=== PATIENT | female | born 1950 | race Caucasian/White ===

== ENCOUNTER → 2020-08-15 08:30 | Outpatient (CLI) | payer MEDICARE, SELFPAY ==
--- NOTE | ~2020-08-15 | MR_ITS ---
EXAMINATION: MR lumbar spine wo con EXAM DATE: 08/15/2020 09:03 INDICATION: Lumbar radiculopathy lumbar radiculopathy. TECHNIQUE: Multi-sequential, multiplanar MR images of the lumbar spine were obtained without contrast . Sagittal T1, T2, T2 fat saturation images. Axial T2 weighted images. There is no prior study for comparison. FINDINGS: Moderate lumbar levoscoliosis. There is severe disc disease L2-3 and L3-4 with mild loss of the vertebral body heights L2-L4. Small Tarlov cyst posterior to the S2 segment. The conus medullari s terminates at the L1 level and has normal signal intensity and morphology. Mildly diffusely hetero geneous bone marrow without focal suspicious signal abnormality. There is 3 mm anterolisthesis L4 on L5 with moderate disc disease. Level by level evaluation: T12-L1: Disc does not extend beyond the endplate margin. Facet arthropathy: Mild. Neural foraminal stenosis: No stenosis. Central canal stenosis: No stenosis. L1-L2: There is a mild diffuse disc bulge. Facet arthropathy: Mild to moderate. Neural foraminal stenosis: Mild bilateral. Central canal stenosis: Mild. L2-L3: There is a mild to moderate diffuse disc bulge. Facet arthropathy: Moderate. Neural foraminal stenosis: Mild to moderate right, mild left. Central canal stenosis: Mild to moderate. L3-L4: There is a mild to moderate diffuse disc bulge. Facet arthropathy: Moderate. Neural foraminal stenosis: Moderate right, mild left. Central canal stenosis: Mild to moderate. L4-L5: There is a mild to moderate diffuse disc bulge. Facet arthropathy: Mild to moderate. Neural foraminal stenosis: Moderate left, mild right. Central canal stenosis: Mild to moderate. L5-S1: There is a mild diffuse disc bulge. Facet arthropathy: Mild to moderate. Neural foraminal stenosis: Mild left. Central canal stenosis: No stenosis. IMPRESSION: 1. Moderate lumbar levoscoliosis. 2. Advanced mid lumbar disc disease. Reviewed, dictated and finalized at location B. [employer]
--- NOTE | ~2020-08-15 | XR_ITS ---
EXAMINATION:XR cervical spine 4-5V DATE: 08/15/2020 09:18 INDICATION: Neck pain TECHNIQUE: AP, lateral, lateral swimmers and odontoid views of the cervical spine are provided. COMPARISON: None FINDINGS: Alignment is normal. The odontoid is intact. No fracture is identified. There is severe los s of intervertebral disc space height from C3-4 through C6-7. There is no laxity with flexion or exte nsion. Prevertebral soft tissues are normal. There is severe multilevel facet and uncovertebral joint osteoarthritis throughout the cervical spine. IMPRESSION: 1. Severe cervical spondylosis without acute findings. Reviewed, dictated and finalized at location A. IALTY THERAPIST
== END ==
PROVIDERS: Visit Provider Nurse Practitioner Family
DX: M47.25 Other spondylosis with radiculopathy, thoracolumbar region (principal); M47.27 Other spondylosis with radiculopathy, lumbosacral region; M48.07 Spinal stenosis, lumbosacral region; M41.9 Scoliosis, unspecified
CPT/HCPCS: 72050; 72148

== ENCOUNTER → 2021-09-05 10:10 | Outpatient (CLI) | payer MEDICARE, SELFPAY ==
--- NOTE | ~2021-09-05 | MM_ITS ---
EXAMINATION: MM screening [place] BI w arun HISTORY: Screening TECHNIQUE: Craniocaudal and mediolateral oblique 3-D tomosynthesis images were obtained and synthetic 2-D images were generated. CAD analysis was submitted and interpreted. COMPARISON: Comparison to multiple prior studies sequentially, with oldest reviewed study dated 03/2013. BREAST PARENCHYMAL COMPOSITION: There are scattered areas of fibroglandular density. FINDINGS: There is no evidence of suspicious mass, calcification, or architectural distortion to sugg est malignancy in either breast. There has been no suspicious interval change. IMPRESSION: 1. No mammographic evidence of malignancy. 2. Recommend routine screening mammography in one year. BI-RADS Category 1: Negative Reviewed, dictated and finalized at location A. E SHOW MANAGER
--- NOTE | ~2021-09-05 | DEXA_ITS ---
Bone Density Report Name: MONICA SHERMAN I Age: 71 Sex: Female Ethnicity: White Date of : 1950 Indication: osteopenia; height loss; hysterectomy; rheumatoid arthritis; Referring Provider: Jhony Holder Study: Bone densitometry was performed. Exam Date: September 05, 2021 Accession number: [id number] Bone Density: Region BMD T-score Z-score Classification AP Spine (L1-L4) 1.033 -0.1 2.2 Normal Femoral Neck (Left) 0.509 -3.1 -1.1 Osteoporosis Total Hip (Left) 0.602 -2.8 -1.1 Osteoporosis Femoral Neck (Right) 0.553 -2.7 -0.7 Osteoporosis Total Hip (Right) 0.648 -2.4 -0.7 Osteopenia Total Hip Mean 0.625 -2.6 -0.9 Osteoporosis World Health Organization criteria for BMD impression classify patients as: Normal (T-score at or above -1.0), Osteopenia (T-score between -1.0 and -2.5), or Osteoporosis (T-score at or below -2.5). 10-year Fracture Risk: FRAX not reported because: Some T-score for Spine Total or Hip Total or Femoral Neck at or below -2.5 Previous Exams: Region Exam Age BMD T-score BMD Change BMD Change Date g/cm2 vs Baseline vs Previous AP Spine(L1-L4) 09/05/2021 71 1.033 -0.1 0.057* -0.014 08/12/2012 62 1.047 0.0 0.071* 0.011 06/27/2009 59 1.036 -0.1 0.060* 0.060* 06/18/2005 55 0.976 -0.6 Total Hip(Left) 09/05/2021 71 0.602 -2.8 -0.200* -0.108* 08/12/2012 62 0.710 -1.9 -0.092* -0.037* 06/27/2009 59 0.747 -1.6 -0.055* -0.055* 06/18/2005 55 0.802 -1.1 Total Hip(Right) 09/05/2021 71 0.648 -2.4 -0.191* -0.099* 08/12/2012 62 0.747 -1.6 -0.092* -0.030* 06/27/2009 59 0.777 -1.4 -0.062* -0.062* 06/18/2005 55 0.839 -0.8 *Denotes significance at 95% confidence level, LSC for AP Spine = 0.022 g/cm2, LSC for Total Hip = 0.027 g/cm2 Clinical Information Provided by Patient: Has rheumatoid arthritis Has used the following medications: Vitamin D, Calcium Has the following medical conditions: Hysterectomy Patient maximum height was 64 Menopause Age: 28 No regular weight bearing exercise Does not regularly consume dairy products Drinks caffeinated beverages Onset of menses at age 9 Number of children 1 Impression: The patient has osteoporosis, based on the Left Femoral Neck T-score. The BMD for the Total Hip(Left) decreased, changing by -0.108
== END ==
PROVIDERS: PCP Family Medicine; Visit Provider Family Medicine
DX: Z12.31 Encounter for screening mammogram for malignant neoplasm of breast (principal); Z78.0 Asymptomatic menopausal state; M81.0 Age-related osteoporosis without current pathological fracture; M85.851 Other specified disorders of bone density and structure, right thigh
CPT/HCPCS: 77063; 77067; 77080

== ENCOUNTER → 2022-07-02 10:05 | Outpatient (CLI) | payer MEDICARE, SELFPAY ==
--- NOTE | ~2022-07-02 | XR_ITS ---
EXAM: XR hand LT 2V, XR hand RT 2V DATE: 07/02/2022 11:13 HISTORY: Multiple joint pain . COMPARISON: None available. FINDINGS: Decreased mineralization. Bilateral trapeziometacarpal prostheses. Joint space narrowing, subchondral sclerosis, and osteophytosis present in the bilateral DIP and PIP joints of the fingers, the bilateral second and third MCP joints, the bilateral thumb interphalangeal joints, and the bilate ral triscaphe joints. Erosive deformity present in the right first and second DIP joints, left fourth and fifth DIP joints, and the bilateral fifth PIP joints. Anterolateral subluxation and Heberden's n odes at the right second and third DIP joints. No fracture or dislocation. No lytic or blastic lesion . Joint spaces are maintained. No erosion or periosteal change. Mild radiocarpal and intercarpal join t space narrowing. Scattered degenerative cysts in the carpal bones bilaterally. Chondrocalcinosis. IMPRESSION: Arthritic changes in the hands and wrists most consistent with erosive osteoarthritis. Reviewed, dictated and finalized at location K. ARE TEACHER IMPRESSION: Arthritic changes in the hands and wrists most consistent with eros luis daniel osteoarthritis.
--- NOTE | ~2022-07-02 | XR_ITS ---
EXAM: XR wrist RT 2V, XR wrist LT 2V DATE: 07/02/2022 11:13 HISTORY: Multiple joint pain . COMPARISON: None available. FINDINGS: Decreased mineralization. Bilateral trapeziometacarpal prostheses. Joint space narrowing, subchondral sclerosis, and osteophytosis present in the bilateral DIP and PIP joints of the fingers, the bilateral second and third MCP joints, the bilateral thumb interphalangeal joints, and the bilate ral triscaphe joints. Erosive deformity present in the right first and second DIP joints, left fourth and fifth DIP joints, and the bilateral fifth PIP joints. Anterolateral subluxation and Heberden's n odes at the right second and third DIP joints. No fracture or dislocation. No lytic or blastic lesion . Joint spaces are maintained. No erosion or periosteal change. Mild radiocarpal and intercarpal join t space narrowing. Scattered degenerative cysts in the carpal bones bilaterally. Chondrocalcinosis. IMPRESSION: Arthritic changes in the hands and wrists most consistent with erosive osteoarthritis. Reviewed, dictated and finalized at location K. OR SALES ENGINEER IMPRESSION: Arthritic changes in the hands and wrists most consistent with eros luis daniel osteoarthritis.
--- NOTE | ~2022-07-02 | XR_ITS ---
EXAM: XR ankle RT 2V, XR ankle LT 2V, XR foot LT 2V, XR foot RT 2V DATE: 07/02/2022 11:13 HISTORY: Multiple joint pain . COMPARISON: None available. FINDINGS: Decreased mineralization. No fracture or dislocation. No lytic or blastic lesion. Mild jeanine nt space narrowing in the bilateral tibiotalar joints and bilateral first MTP joints. Mild bilateral hallux valgus. Old, apparently healed left fifth metatarsal avulsion and stress fractures. No erosion or periosteal change. Small bilateral ankle joint effusions. Vascular calcifications. IMPRESSION: Mild bilateral tibiotalar osteoarthritis. Mild bilateral hallux valgus and degenerative c hange at the first MTP joints. Presumably healed left fifth metatarsal avulsion and stress fractures, correlate with symptoms of acute pain/point tenderness. Reviewed, dictated and finalized at [facility] K. ETOLOGIST IMPRESSION: Mild bilateral tibiotalar osteoarthritis. Mild bilateral hallux hyun tim and degenerative change at the first MTP joints. Presumably healed left fif th metatarsal avulsion and stress fractures, correlate with symptoms of acute p ain/point tenderness. IMPRESSION: Mild bilateral tibiotalar osteoarthritis. Mild bilateral hallux hyun tim and degenerative change at the first MTP joints. Presumably healed left fif th metatarsal avulsion and stress fractures, correlate with symptoms of acute p ain/point tenderness. IMPRESSION: Mild bilateral tibiotalar osteoarthritis. Mild bilateral hallux hyun tim and degenerative change at the first MTP joints. Presumably healed left fif th metatarsal avulsion and stress fractures, correlate with symptoms of acute p ain/point tenderness.
--- NOTE | ~2022-07-02 | XR_ITS ---
EXAM: XR elbow RT 2V, XR elbow LT 2V DATE: 07/02/2022 11:13 (accession [id number]), 07/02/2022 11:14 (accession [id number]) HISTORY: Multiple joint pain . COMPARISON: None available. FINDINGS: Decreased mineralization. No fracture or dislocation. No lytic or blastic lesion. Joint sp aces are maintained. Mild bilateral medial and lateral epicondylar enthesopathy. No erosion or perios teal change. Soft tissues within normal limits. IMPRESSION: Mild bilateral medial and lateral epicondylar enthesopathy. Reviewed, dictated and finalized at location K. TH AND FITNESS PROFESSOR IMPRESSION: Mild bilateral medial and lateral epicondylar enthesopathy.
--- NOTE | ~2022-07-02 | XR_ITS ---
EXAM: XR knee RT 2V, XR knee LT 2V DATE: 07/02/2022 11:13 HISTORY: Multiple joint pain . COMPARISON: None available. FINDINGS: Decreased mineralization. No fracture or dislocation. No lytic or blastic lesion. Mild micheal ateral medial joint space narrowing. No erosion or periosteal change. Chondrocalcinosis. Question of medial soft tissue swelling of the left knee. IMPRESSION: Mild arthritic changes in the knees including chondrocalcinosis as can be seen with CPPD, as well as other entities. Reviewed, dictated and finalized at location K. L MAKER SCALE IMPRESSION: Mild arthritic changes in the knees including chondrocalcinosis as can be seen with CPPD, as well as other entities.
--- NOTE | ~2022-07-02 | XR_ITS ---
EXAM: XR hip RT min 2V, XR hip LT min 2V DATE: 07/02/2022 11:13 HISTORY: Multiple joint pain . COMPARISON: None available. FINDINGS: Decreased mineralization. No fracture or dislocation. No lytic or blastic lesion. Mild micheal ateral superior hip joint space narrowing and osteophytosis at the rim of the bilateral femoral heads . Chondrocalcinosis in the pubic symphysis. No erosion or periosteal change. Soft tissues within norm al suture material projects over the left iliac crest. Sutures or jonn project over the right ash c crest. Small pelvic phleboliths. IMPRESSION: Typical changes of mild osteoarthritis in the bilateral hips. Of note, there is chondroca lcinosis in the pubic symphysis, as can be seen with CPPD as well as other entities, including osteoa rthritis. Reviewed, dictated and finalized at location K. EGNATOR ELECTROLYTIC CAPACITORS IMPRESSION: Typical changes of mild osteoarthritis in the bilateral hips. Of no te, there is chondrocalcinosis in the pubic symphysis, as can be seen with CPPD as well as other entities, including osteoarthritis.
--- NOTE | ~2022-07-02 | XR_ITS ---
EXAM: XR shoulder RT min 2V, XR shoulder LT min 2V DATE: 07/02/2022 11:13 HISTORY: Multiple joint pain . COMPARISON: None available. FINDINGS: Decreased mineralization. No fracture or dislocation. No lytic or blastic lesion. Mild deg enerative changes in the bilateral AC joints. No erosion or periosteal change. Soft tissues within no rmal limits. IMPRESSION: Mild bilateral AC joint hypertrophy. Reviewed, dictated and finalized at location K. MENTAL METAL ERECTOR APPRENTICE IMPRESSION: Mild bilateral AC joint hypertrophy.
== END ==
PROVIDERS: PCP Family Medicine; Visit Provider Internal Medicine Rheumatology
DX: M19.032 Primary osteoarthritis, left wrist (principal); M19.042 Primary osteoarthritis, left hand; M19.041 Primary osteoarthritis, right hand; M19.031 Primary osteoarthritis, right wrist; M77.12 Lateral epicondylitis, left elbow; M77.11 Lateral epicondylitis, right elbow; M77.02 Medial epicondylitis, left elbow; M77.01 Medial epicondylitis, right elbow; M19.072 Primary osteoarthritis, left ankle and foot; M19.071 Primary osteoarthritis, right ankle and foot; M20.12 Hallux valgus (acquired), left foot; M20.11 Hallux valgus (acquired), right foot; M17.0 Bilateral primary osteoarthritis of knee; R93.6 Abnormal findings on diagnostic imaging of limbs
CPT/HCPCS: 73030; 73070; 73100; 73120; 73502; 73560; 73600; 73620

== ENCOUNTER → 2022-07-24 08:46 | Outpatient (CLI) | payer MEDICARE, SELFPAY ==
--- NOTE | ~2022-07-24 | MR_ITS ---
MRI of the cervical spine Clinical History: Pain Technique: Axial T2-weighted and gradient images, and sagittal T1-weighted, T2-weighted, and STIR shankar ges were acquired. Findings: No acute fracture identified. 3 mm anterolisthesis of C7 over T1 noted. There is fusion acr oss the C4-C5 disc space. No suspicious bone marrow signal abnormality seen. At C2-C3, there is no significant disc bulge or herniation. No spinal canal stenosis, cord compressio n, or neural foraminal narrowing. At C3-C4, there is advanced degenerative disc disease with small disc osteophyte complex. There is mi ld effacement of the anterior thecal sac, but no definite bud cord compression. There is probable m ild to moderate bilateral neural foraminal narrowing. At C4-C5, there is no disc bulge or herniation. There is no spinal canal stenosis or cord compression . Bilateral neural foramina are preserved. At C5-C6, there is disc osteophyte complex, which mildly effaces the ventral thecal sac. No bud cor d compression or definite neural foraminal narrowing. At C6-C7, there is minimal disc ossify complex. No spinal canal stenosis, cord compression, or defini te neural foraminal narrowing. No abnormal signal seen in the spinal cord. Paravertebral soft tissues are unremarkable. Impression: 3 mm anterolisthesis of C7 over T1. Fusion across the C4-C5 disc space. Mild degenerative spondylosis, as detailed above. There is probable neural foraminal narrowing bilate rally at C3-C4. No significant cord compression identified in the cervical spine. Reviewed, dictated and finalized at [facility]. CLEANER Impression: 3 mm anterolisthesis of C7 over T1. Fusion across the C4-C5 disc space. Mild degenerative spondylosis, as detailed above. There is probable neural fora mary narrowing bilaterally at C3-C4. No significant cord compression identifie d in the cervical spine.
--- NOTE | ~2022-07-24 | MR_ITS ---
EXAMINATION: MR lumbar spine wo con DATE: 07/24/2022 09:55 INDICATION: Low back pain TECHNIQUE: Magnetic resonance imaging (MRI) of the lumbar spine was performed without intravenous con trast. Sequences included sagittal T2-weighted FSE, sagittal T2-weighted FS FSE, sagittal T1-weighted FSE, and axial T2-weighted FSE. COMPARISON: 08/15/2020 FINDINGS: Lumbar levorotoscoliosis with 17 degree levocurvature measured between T12 and L4. Sagittal alignment is normal. Vertebral body heights are normal. Severe disc height loss with fibrofatty and fibrovascu lar degenerative endplate changes at L2-L3 through L4-L5. Mild disc height loss at L1-L2. Heterogeneo us marrow signal with a few scattered small T1 hyperintense hemangiomas. The conus medullaris termina lenka at L1-L2. There is normal signal in the caudal spinal cord. Paravertebral soft tissues are unrema rkable. The following disc levels are specifically discussed: T12-L1: Disc is minimally bulging. There is mild to moderate bilateral facet joint osteoarthritis. Th ere is no neural foraminal stenosis. There is no central canal stenosis. L1-L2: Disc is mildly bulging with superimposed left foraminal zone annular fissure. There is hypertr ophy of the ligamentum flavum. There is mild to moderate bilateral facet joint osteoarthritis. There is mild bilateral neural foraminal stenosis. There is mild central canal stenosis. L2-L3: Disc is bulging with annular fissure. There is hypertrophy of the ligamentum flavum. There is moderate left and severe right facet joint osteoarthritis. There is mild left and moderate right ashlie ral foraminal stenosis. There is mild to moderate central canal stenosis. L3-L4: Disc is bulging with annular fissure. There is hypertrophy of the ligamentum flavum. There is moderate left and severe right facet joint osteoarthritis. There is moderate right and mild to modera te left neural foraminal stenosis. There is mild to moderate central canal stenosis. L4-L5: Disc is bulging with annular fissure. There is hypertrophy of the ligamentum flavum. There is moderate right and severe left facet joint osteoarthritis. There is mild right and moderate left ashlie ral foraminal stenosis. There is mild central canal stenosis with mild to moderate narrowing of the l eft lateral recess. L5-S1: Disc is mildly bulging. There is severe left and moderate to severe right facet joint osteoart hritis. There is mild left neural foraminal stenosis. There is no central canal stenosis. IMPRESSION: 1. Moderate lumbar levorotoscoliosis with severe spondylosis. Reviewed, dictated and finalized at location L. FIC CLERK
--- NOTE | ~2022-07-24 | MR_ITS ---
EXAMINATION: MR brain/brain stem wo con DATE: 07/24/2022 09:54 INDICATION: Headache. TECHNIQUE: Magnetic resonance imaging (MRI) of the brain and brainstem was performed without intraven ous contrast. COMPARISON: Brain MRI 05/06/2013 FINDINGS: There is no intracranial hemorrhage, acute infarction, or abnormal intracranial mass lesion . There are scattered areas of nonspecific increased T2-weighted signal intensity in the cerebral whi te matter. The ventricles are normal in size. The paranasal sinuses are clear. There are likely patterson es of ocular lens replacement surgeries. The mastoid air cells are normal. IMPRESSION: 1. Worsened moderate nonspecific cerebral white matter disease, which likely represents chronic small vessel ischemic disease. Reviewed, dictated and finalized at location A. MATCHER IMPRESSION: 1. Worsened moderate nonspecific cerebral white matter disease, which likely re presents chronic small vessel ischemic disease.
== END ==
PROVIDERS: PCP Family Medicine; Visit Provider Internal Medicine Rheumatology
DX: M54.2 Cervicalgia (principal); R51.9 Headache, unspecified; M54.50 Low back pain, unspecified; M47.812 Spondylosis without myelopathy or radiculopathy, cervical region; M41.9 Scoliosis, unspecified; M47.816 Spondylosis without myelopathy or radiculopathy, lumbar region; R94.02 Abnormal brain scan
CPT/HCPCS: 70551; 72141; 72148

== ENCOUNTER 2023-02-21 11:12 | Outpatient (CLI) | payer MEDICARE, SELFPAY ==
[2023-02-21 13:33] LABS: Free T4 Free Thyroxine 1.15 ng/mL (0.78-2.19); Vitamin D 25 Hydroxy 64.3 ng/mL
[2023-02-21 13:44] LABS: Thyroid Stimulating Hormone 0.055 uIU/mL (0.465-4.680)
== END 2023-02-21 11:13 | disposition home or self-care (01) ==
LOC: ANHWCLAB 11:13
PROVIDERS: PCP Family Medicine; Visit Provider Internal Medicine Endocrinology, Diabetes & Metabolism
DX: M81.0 Age-related osteoporosis without current pathological fracture (principal); E03.9 Hypothyroidism, unspecified; R79.89 Other specified abnormal findings of blood chemistry
CPT/HCPCS: 36415; 82306; 84439; 84443

== ENCOUNTER 2025-06-05 15:48 | Emergency (ER) | payer MEDICARE, SELFPAY ==
--- NOTE | ~2025-06-05 | CT_ITS ---
EXAMINATION: CT cervical spine wo con COMPARISON: None HISTORY: FALL TECHNIQUE: Axial images were obtained through the spine without IV contrast. Coronal, sagittal reconstruction images were obtained from the axial views. CT scan performed using dose optimization techniques including the following automated exposure control; adjustment of mA and/or kV; use of iterative reconstruction technique. Automatic exposure control was used to reduce radiation dose. Permanent radiation dose record is archived to PACS. FINDINGS: Grade 1 anterolisthesis of C2 on C3 and C7 on T1, no fracture is identified. Severe loss of disc height at C3-4 C4-5 C5-6 with partial fusion of the C4-5 disc space with severe canal and foraminal stenosis, outpatient MRI is recommended Soft tissues unremarkable. Impression: No acute abnormality. Reviewed, dictated and finalized at location P. Impression: No acute abnormality.
--- NOTE | ~2025-06-05 | XR_ITS ---
EXAMINATION: XR ribs RT 2V w CXR 2V, 06/05/2025 17:35 CDT HISTORY: FALL COMPARISON: No comparisons available. Findings: No acute fracture or malalignment. No significant degenerative changes. Soft tissues unremarkable. Impression: No acute fracture or malalignment. Reviewed, dictated and finalized at location P. Impression: No acute fracture or malalignment.
--- NOTE | ~2025-06-05 | CT_ITS ---
EXAMINATION: CT brain wo mamadou, 06/05/2025 17:15 CDT HISTORY: FALL COMPARISON: No comparisons available. Technique: Axial images obtained of the brain without contrast. One or more of the following dose reduction techniques were used: automated exposure control, adjustment of the mA and/or kV according to patient size, use of iterative reconstruction technique. Findings: No acute infarct or parenchymal hemorrhage. Moderate probable chronic periventricular ischemic changes No abnormal mass or mass effect. No midline shift. No extra-axial fluid collections. No hydrocephalus. Mastoid air cells unremarkable. Sinuses and orbits unremarkable. No acute fracture. No significant facial or scalp soft tissue swelling evident. No radiopaque foreign body is seen. Impression: 1.No acute intracranial abnormality. Reviewed, dictated and finalized at location P. Impression: 1.No acute intracranial abnormality.
--- NOTE | ~2025-06-05 | XR_ITS ---
EXAMINATION: XR hip RT 2V w AP pelvis, 06/05/2025 17:35 CDT HISTORY: FALL COMPARISON: No comparisons available. Findings: No acute fracture or malalignment. No significant degenerative changes. Soft tissues unremarkable. Impression: No acute fracture or malalignment. Reviewed, dictated and finalized at location P. Impression: No acute fracture or malalignment.
[2025-06-05 15:50] VITALS: BP 143/97; PULSE 116; RESP 17; TEMP 36.4; O2SAT 100
--- OUTSIDE RECORDS SUMMARY | 2025-06-05 15:50 | XMS_ITS | Clinical Summary ---
Author Organization [facility] Address [address] [place] [address] Care Team Providers Care Career Development Counselor Name Role Phone Sandro Sosa MD Primary Care Provider [phone] Mehdi Joseph MD Unavailable [phone] Source Comments [facility],non-owned Affiliates and Associated Physician Practices is amultiple site organization consisting of ambulatory clinics and hospital sitesin [place], [place], [place] and [place]. This disclosure is being madepursuant to the Care Everywhere program and may not contain all information available regarding this patient. Last updated 18.[facility] [employer] Allergies Active Allergy Reactions Criticality Noted Date Comments Carisoprodol Swelling 12/10/2008 FEVER Codeine 12/10/2008 Oxaprozin 12/10/2008 Ibuprofen Rash 12/10/2008 Pregabalin Rash 12/10/2008 BLURRED VISION Nsaids Urticaria 12/10/2008 Oxycodone-Aspirin 12/10/2008 Quinine 12/10/2008 THROMBOCYTOPENIA Relafen Urticaria 12/10/2008 Metaxalone Swelling,Redness 12/10/2008 FEVER Tylenol Rash 12/10/2008 Medications * Be aware that medications may not be up to date on this document. Alwaysverify current medications with the patient. SYNTHROID 100 MCG TABS Take 100 mcg by mouth daily before breakfast. Active dicyclomine (BENTYL) 20 MG tablet Take 20 mg by mouth 4 times daily. Active azelastine (ASTELIN) 137 MCG/SPRAY nasal spray [place] 2 Sprays into each nostril 2 times daily. 30 3 9 Active Magnesium Oxide 200 MG TABSIndications :Cramp in limb Take 200 mg by mouth 2 times daily. 60 12 0 Active metaxalone (SKELAXIN) 800 MG tabletIndicatio ns:Myofascial pain Take 1 Tab by mouth 3 times daily as needed for Muscle Spasms ( averages about twice daily). 270 Tab 3 0 Active trazodone (DESYREL) 50 MG tablet Take 1 Tab by mouth 2 times daily. 180 Tab 3 0 Active hydroxychloroqu ine (PLAQUENIL) 200 MG tabletIndicatio ns:Rheumatoid arthritis(714.0 ) ([facility]) Take 1 Tab by mouth 2 times daily. 60 Tab 12 0 Active traMADol (ULTRAM) 50 MG tablet Take 2 Tabs by mouth 3 times daily. 540 Tab 3 1 Active triamterene-hyd rochlorothiazid e (DYAZIDE) 37.5-25 MG capsuleIndicati ons:Edema Take 1 Cap by mouth daily. PRN edema 30 Cap 5 1 Active ALPRAZolam (XANAX) 0.5 MG tablet Take 1 Tab by mouth 3 times daily as needed for Anxiety. 90 Tab 3 1 Active tapentadol (NUCYNTA) 75 MG tablet Take 1 Tab by mouth 4 times daily. 120 Tab 0 1 Active levothyroxine (SYNTHROID) 112 MCG tablet Take 1 Tab by mouth daily. 90 Tab 3 1 Active predniSONE (DELTASONE) 10 MG tablet Take 1 Tab by mouth. Use 1-2 pills daily to control arthritis symptoms 60 Tab 12 1 Active fentaNYL (DURAGESIC) 25 MCG/HR patch Apply 1 Patch to skin every 3 days. 10 Patch 0 1 Active butalbital-acet aminophen-caffe ine (FIORICET) 50-325-40 MG tablet Take 1 Tab by mouth every 6 hours as needed for Headache and Migraine. 90 Tab 4 1 Active Active Problems Problem Noted Date Diagnosed Date Rheumatoid arthritis 04/26/2010 Overview (06/12/2015): 04/26/2010 S12 T 8 normal RF CCP and CRP 06/08/2010 S6t3 09/08/2010 R3-25 S0T5 diffuse tenderness. 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 (AF LURIA, FLUZONE TRIVALENT; 6MO+) (IIV3) 04/26/2010 PNEUMOCOCCAL PPSV23 04/26/2010 Family History Medical History Relation Name Comments Arthritis Mother Heart Disease Mother [place] Relation Name Status Comments Brother Alive Father (Age 74) Mother (Age 73) Sister Alive Social History Tobacco Use Types Packs/Day Years Used Date Smoking Tobacco: Former Cigarettes 0.5 25 Alcohol Use Standard Drinks/Week Comments No 0 (1 standard drink = 0.6 oz pur e alcohol) Comments No Sex and Gender Information Value Date Recorded Sex Assigned at Not on file Legal Sex Female 4:25 AM [employer] Gender Identity Not on file Sexual Orientation Not on file Last Filed Vital Signs Vital Sign Reading Time Taken Comments Blood Pressure 96/68 09/08/2010 11:05 AM [employer] Pulse 74 09/08/2010 11:05 AM [employer] Temperature - - Respiratory Rate - - Oxygen Saturation - - Inhaled Oxygen Concentration - - Weight 54.9 kg (121 lb) 09/08/2010 11:05 AM [employer] Height 162.6 cm (5' 4) 09/08/2010 11:05 AM [employer] Body Mass Index 20.77 09/08/2010 11:05 AM [employer] Plan of Treatment Health Maintenance Due Date Last Done Comments BONE DENSITY TESTING 1950 HEPATITIS C SCREENING 02/25/1966 DTAP/TDAP/TD VACCINES (1 - Tdap) 1967 ZOSTER VACCINE (1 of 2) 1998 PNEUMOCOCCAL VACCINE 50+ (2 of 2 - PCV) 04/26/2011 04/26/2010 Respiratory Syncytial Virus (RSV) Vaccine Pt: or over 60 yrs (1 - 1-dose 75+ series) 2023 DEPRESSION SCREENING 08/05/2024 COVID-19 VACCINE (1 - 2023-2 5 season) 2025 INFLUENZA VACCINE (#1) 2025 04/26/2010 HEPATITIS B VACCINE Aged Out No longe r eligible based on patient's age to complete this topic HIB VACCINE Aged Out No longer eligi ble based on patient's age to complete this topic HPV VACCINE Aged Out No longer eligi ble based on patient's age to complete this topic MENINGOCOCCAL (Group B) VACC INE SHARED DECISION-MAKING Aged Out No longer eligibl e based on patient's age to complete this topic MENINGOCOCCAL GROUPS A/C/Y/W VACCINE Aged Out No longer eligible b ased on patient's age to complete this topic Care Teams Career Development Counselor Relationship Specialty Start Date End Date Sandro Sosa MD [address] [place] [id number] PCP - General 01/04/09 Mehdi Joseph MD [address] [place] [id number] Gastroenterology 04/26/10
--- OUTSIDE RECORDS SUMMARY | 2025-06-05 15:50 | XMS_ITS | Data Portability ---
Author Organization [place] - [facility] [employer], Main Office Address [address] [place] [address] Assessment No assessment recorded. Plan of Treatment Reminders Order Date Submit Date Provider Last Modified By Organization Details Last Modified Time Details Appointments None recorded . Lab lipid panel, serum [address] (Lab), [address] [place], [address], 09:51:06 lipid panel, serum 2024 025 [facility] (Lab), [address] [place], [address], 19:00:58 CMP, serum or plasma 2024 025 [facility] (Lab), [address] [place], [address], 5 19:01:05 unlisted lab - CBC study [address] (Lab), [address] [place], [address], 09:18:54 TSH, serum or plasma 2024 025 [facility] (Lab), [address] [place], [address], 19:32:25 T3, free, serum or plasma 2024 025 [facility] (Lab), [address] [place], [address], 19:35:22 T4, free, serum 2024 025 [facility] (Lab), [address] [place], [address], 19:35:17 CBC w/ auto diff 2024 025 [facility] (Lab), [address] [place], [address], 18:30:28 ferritin , serum or plasma 2024 025 [facility] (Lab), [address] [place], [address], 19:35:27 iron + total iron-bin ding capacity (TIBC), serum 2024 025 [facility] (Lab), [address] [place], [address], 19:00:39 Referral physical therapis t referral - Please call patient to schedule . 2024 025 [email or web address] [facility] Physical, Occupational [facility] Medicine [facility] Re[facility], [address] [place], [address], 09:50:05 Procedures None recorded . Surgeries None recorded . Imaging MAMMO, screenin g, digital, bilatera l - Please call patient to schedule . 2024 025 [facility] ([facility] Scheduling), [address] [place], [address], 15:21:36 bone density - Please call patient to schedule . [address] (One Call Scheduling), [address] [place], [address], 5 14:09:54 Medication Orders Medrol (Doug) 4 mg tablets in a dose pack 2024 025 [facility] #[id number], [address], [place], [place], [id number], 5 10:15:12 cycloben zaprine 5 mg tablet 2024 025 [facility] #[id number], [address], [place], [place], [id number], 5 05:02:16 alendron ate 70 mg tablet [address] [facility]02690, [address] , [place], [place], [id number], 5 15:45:14 lorazepa m 0.5 mg tablet 2024 025 [facility] #85888, [address] , [place], [place], [id number], 5 09:38:57 levothyr oxine 75 mcg tablet [address] [facility] #29346, [address], [place], [place], [id number], 5 15:45:14 rosuvast atin 20 mg tablet [address] [facility][id number], [address], [id number], 5 15:45:14 buspiron e 10 mg tablet 2024 025 [email or web address] [facility] #18880, [address] , [place], [place], [id number], 11:15:18 Patient TargetsNo targets recorded. Patient Instructions Encounter Date Encounter Id Patient Instructions Last Modified By Organization Details Last Modified Time 05/03/2025 [id number] Take medications as directed. Use modified exercised given in office until PT begins. Continue to use heat and ice as needed for discomfort. Please call office with any questions or concerns. Not available 05/03/2025 10:15:02 Reason for Referral Physical Therapist Referral for Bilateral sciatica Please call patient to schedule. Referring Physician: Sarah Garrido, Internal Medicine, Encounter Date: 05/03/2025 Results Created Date Observation Date Name Description Value Unit Range Abnormal Flag Note LastModifiedBy Organization Detail LastModifiedTime 10/15/1910/14/2024 CBC/C OMPLE TE BLD COUNT W/DIF F white blood cells 3.6 x10'3 /uL 4.2-10 .8 low Not Available [facility] (Lab) [address] [place], [address], 10/14/2024 19:01:24 10/15/19 25 10/14/2024 CBC/C OMPLE TE BLD COUNT W/DIF F red blood cells 4.42 x10'6 /uL 3.80-5 .20 Not Available [facility] (Lab) [address] [place], [address], 10/14/2024 19:01:24 10/15/19 25 10/14/2024 CBC/C OMPLE TE BLD COUNT W/DIF F hemoglobin 15.4 g/dL 12.0-1 5.6 Not Available [facility] (Lab) [address] [place], [address], 10/14/2024 19:01:24 10/15/19 25 10/14/2024 CBC/C OMPLE TE BLD COUNT W/DIF F hematocrit 48.8 % 35.7-4 5.7 high Not Available [facility] (Lab) [address] [place], [address], 10/14/2024 19:01:24 10/15/19 25 10/14/2024 CBC/C OMPLE TE BLD COUNT W/DIF F mean red cell volume 110.4 fL 82.0-9 9.0 high Not Available [facility] (Lab) [address] [facility] [place], [address], 10/14/2024 19:01:24 10/15/19 25 10/14/2024 CBC/C OMPLE TE BLD COUNT W/DIF F mean red cell hemoglobin 34.8 pg 27.0-3 3.0 high Not Available [facility] (Lab) [address] [place], [address], 10/14/2024 19:01:24 10/15/19 25 10/14/2024 CBC/C OMPLE TE BLD COUNT W/DIF F mean RBC HGB concentratio n 31.6 g/dL 31.0-3 6.0 Not Available [facility] (Lab) [address] [place], [address], 10/14/2024 19:01:24 10/15/19 25 10/14/2024 CBC/C OMPLE TE BLD COUNT W/DIF F red cell distribution width 13.3 % 11.8-1 5.5 Not Available [facility] (Lab) [address] [place], [address], 10/14/2024 19:01:24 10/15/19 25 10/14/2024 CBC/C OMPLE TE BLD COUNT W/DIF F platelets 177 x10'3 /uL 150-40 0 Not Available [facility] (Lab) [address] [place], [address], 10/14/2024 19:01:24 10/15/19 25 10/14/2024 CBC/C OMPLE TE BLD COUNT W/DIF F mean platelet volume 10.1 fL 9.0-12 .4 Not Available [facility] (Lab) [address] [place], [address], 10/14/2024 19:01:24 10/15/19 25 10/14/2024 CBC/C OMPLE TE BLD COUNT W/DIF F neutrophils 52.1 % 39.0-7 2.0 Not Available [facility] (Lab) [address] [place], [address], 10/14/2024 19:01:24 10/15/19 25 10/14/2024 CBC/C OMPLE TE BLD COUNT W/DIF F lymphocytes 35.0 % 16.0-4 7.0 Not Available [facility] (Lab) [address] [place], [address], 10/14/2024 19:01:24 10/15/19 25 10/14/2024 CBC/C OMPLE TE BLD COUNT W/DIF F monocytes 7.3 % 5.0-12 .0 Not Available [facility] (Lab) [address] [place], [address], 10/14/2024 19:01:24 10/15/19 25 10/14/2024 CBC/C OMPLE TE BLD COUNT W/DIF F eosinophils 4.2 % 1.0-7. 0 Not Available [facility] (Lab) [address] [place], [address], 10/14/2024 19:01:24 10/15/19 25 10/14/2024 CBC/C OMPLE TE BLD COUNT W/DIF F basophils 1.1 % 0.0-2. 0 Not Available [facility] (Lab) [address] [place], [address], 10/14/2024 19:01:24 10/15/19 25 10/14/2024 CBC/C OMPLE TE BLD COUNT W/DIF F immature granulocytes 0.3 % 0.00-0 .50 Not Available [facility] (Lab) [address] [place], [address], 10/14/2024 19:01:24 10/15/19 25 10/14/2024 CBC/C OMPLE TE BLD COUNT W/DIF F neutrophils, absolute count 1.86 x10'3 /uL 1.5-8. 0 Not Available [facility] (Lab) [address] [place], [address], 10/14/2024 19:01:24 10/15/19 25 10/14/2024 CBC/C OMPLE TE BLD COUNT W/DIF F lymphocytes, absolute count 1.25 x10'3 /uL 1.07-3 .43 Not Available [facility] (Lab) [address] [place], [address], 10/14/2024 19:01:24 10/15/19 25 10/14/2024 CBC/C OMPLE TE BLD COUNT W/DIF F monocytes, absolute count 0.26 x10'3 /uL 0.29-0 .99 low Not Available [facility] (Lab) [address] [place], [address], 10/14/2024 19:01:24 10/15/19 25 10/14/2024 CBC/C OMPLE TE BLD COUNT W/DIF F eosinophils, absolute count 0.15 x10'3 /uL 0.02-0 .53 Not Available [facility] (Lab) [address] [place], [address], 10/14/2024 19:01:24 10/15/19 25 10/14/2024 CBC/C OMPLE TE BLD COUNT W/DIF F basophils, absolute count 0.04 x10'3 /uL 0.01-0 .08 Not Available [facility] (Lab) [address] [place], [address], 10/14/2024 19:01:24 03/12/20 25 10/14/2024 CBC/C OMPLE TE BLD COUNT W/DIF F immature granulocytes ,absolute 0.01 x10'3 /uL 0.00-0 .05 Not Available [facility] (Lab) [address] [place], [address], 10/14/2024 19:01:24 10/15/19 25 10/14/2024 CBC/C OMPLE TE BLD COUNT W/DIF F nucleated red blood cells 0.0 % -0 Not Available [facility] (Lab) [address] [place], [address], 10/14/2024 19:01:24 10/15/19 25 10/14/2024 CBC/C OMPLE TE BLD COUNT W/DIF F NRBC# 0.00 x10'3 /uL Not Available [facility] (Lab) [address] [place], [address], 10/14/2024 19:01:24 10/15/19 25 10/14/2024 CBC/C OMPLE TE BLD COUNT W/DIF F macro OCCASI ONAL Not Available [facility] (Lab) [address] [place], [address], 10/14/2024 19:01:24 10/15/19 25 10/14/2024 IRON/ TIBC PANEL total iron binding capacity 297 mcg/d L 265-47 5 Not Available [facility] (Lab) [address] [place], [address], 10/14/2024 19:21:07 10/15/19 25 10/14/2024 IRON/ TIBC PANEL % transferrin saturation 52 % 20-55 Not Available [facility] (Lab) [address] [place], [address], 10/14/2024 19:21:07 10/15/19 25 10/14/2024 IRON/ TIBC PANEL unsaturated iron bind capacity 143 mcg/d L 126-38 2 Not Available [facility] (Lab) [address] [place], [address], 10/14/2024 19:21:07 10/15/19 25 10/14/2024 IRON/ TIBC PANEL iron 154 mcg/d L 42-175 Not Available [facility] (Lab) [address] [place], [address], 10/14/2024 19:21:07 10/15/19 25 10/14/2024 LIPID PANEL cholesterol 270 mg/dL 140-19 9 high NIH AZUL NSUS RECOM MENDA TION FOR LAZ STERO L: ADULT CHILD LOW RISK: <200 <170 BORDE RLINE : <200- 239 ----- HIGH RISK: >240 >200 Not Available [facility] (Lab) [address] [place], [address], 10/14/2024 19:00:58 10/15/19 25 10/14/2024 LIPID PANEL triglyceride s 226 mg/dL 0-150 high NIH AZUL NSUS REPOR T RECOM MENDA TION FOR TRIGL YCERI GEORGE: ADULT CHILD LOW RISK: <150 ----- BODER LINE: 150-1 99 ----- HIGH RISK: >200 ----- Not Available [facility] (Lab) [address] [place], [address], 10/14/2024 19:00:58 10/15/19 25 10/14/2024 LIPID PANEL HDL cholesterol 65 mg/dL 40- Not Available [facility] (Lab) [address] [place], [address], 10/14/2024 19:00:58 10/15/19 25 10/14/2024 LIPID PANEL LDL cholesterol, calculated 160 mg/dL 0-130 high NIH AZUL NSUS REPOR T RECOM MENDA TIONS FOR LDL: ADULT CHILD LOW RISK <130 <110 (OPTI MAL LDL) <100 ----- BORDE RLINE : 130-1 59 ----- HIGH RISK: >160 >130 A TRIGL YCERI DE RESUL T >400 INVAL IDATE S THE CALCU LATIO N FOR LDL FRACT IONAT ION - THE LDL RESUL T WILL NOT BE REPOR BANDAR. Not Available [facility] (Lab) [address] [place], [address], 10/14/2024 19:00:58 10/15/19 25 10/14/2024 COMPR EHENS FRANKLIN METAB OLIC PANEL sodium 137 mmol/ L 137-14 5 Not Available [facility] (Lab) [address] [place], [address], 10/14/2024 19:01:05 10/15/19 25 10/14/2024 COMPR EHENS FRANKLIN METAB OLIC PANEL potassium 4.3 mmol/ L 3.5-5. 1 Not Available [facility] (Lab) [address] [place], [address], 10/14/2024 19:01:05 10/15/19 25 10/14/2024 COMPR EHENS FRANKLIN METAB OLIC PANEL chloride 106 mmol/ L 98-107 Not Available [facility] (Lab) [address] [place], [address], 10/14/2024 19:01:05 10/15/19 25 10/14/2024 COMPR EHENS FRANKLIN METAB OLIC PANEL carbon dioxide 30 mmol/ L 22-30 Not Available [facility] (Lab) [address] [place], [address], 10/14/2024 19:01:05 10/15/19 25 10/14/2024 COMPR EHENS FRANKLIN METAB OLIC PANEL anion gap 5.3 mmol/ L 14-22 low Not Available [facility] (Lab) [address] [place], [address], 10/14/2024 19:01:05 10/15/19 25 10/14/2024 COMPR EHENS FRANKLIN METAB OLIC PANEL glucose 69 mg/dL 70-99 low Not Available [facility] (Lab) [address] [place], [address], 10/14/2024 19:01:05 10/15/19 25 10/14/2024 COMPR EHENS FRANKLIN METAB OLIC PANEL BUN 10 mg/dL 8-19 Not Available [facility] (Lab) [address] [place], [address], 10/14/2024 19:01:05 10/15/19 25 10/14/2024 COMPR EHENS FRANKLIN METAB OLIC PANEL creatinine 0.96 mg/dL 0.66-1 .25 Not Available [facility] (Lab) [address] [place], [address], 10/14/2024 19:01:05 10/15/19 25 10/14/2024 COMPR EHENS FRANKLIN METAB OLIC PANEL GFR 57 Refer ence Range : Ralph ge GFR Healt hy Adult : >60 mL/mi n/1.7 3 m2 Chron ic Kidne y Disea se: 15-60 mL/mi n/1.7 3 m2 Kidne y Failu re: <15/m L/min /1.73 m2 www.n iddk. nih.g ov The MDRD study equat ion has not been valid ated in child jacob <18 years of age; pregn ant women ; the elder ly >85 years of age; or in some racia l or ethni c subgr oups, such as [facility] nics. Outsi de the valid ated cuong eters , estim ated GFR is less accur ate, requi ring clini essie judgm ent on a case- by-ca se basis . Clini essie inter preta tion for other races and ages must be made by the clini rory. The MDRD study equat ion has not been valid ated for the evalu ation of serum creat inine relat ed to nutri hugh l statu s or medic ation usage . For perso ns <18 years of age, a pedia tric GFR calcu lator is avail able on the [facility] websi te: https ://avtar kelly.nan lopes/pr ofess ional s/kdo qi/gf r_cal culat or Not Available [facility] (Lab) [address] [place], [address], 10/14/2024 19:01:05 10/15/19 25 10/14/2024 COMPR EHENS FRANKLIN METAB OLIC PANEL alkaline phosphatase 71 U/L 38-126 Not Available [facility] (Lab) [address] [place], [address], 10/14/2024 19:01:05 10/15/19 25 10/14/2024 COMPR EHENS FRANKLIN METAB OLIC PANEL alanine aminotransfe rase 36 U/L 0-35 high Not Available [facility] (Lab) [address] [place], [address], 10/14/2024 19:01:05 10/15/19 25 10/14/2024 COMPR EHENS FRANKLIN METAB OLIC PANEL aspartate aminotransfe rase 58 U/L 15-37 high Not Available [facility] (Lab) [address] [place], [address], 10/14/2024 19:01:05 10/15/19 25 10/14/2024 COMPR EHENS FRANKLIN METAB OLIC PANEL bilirubin, total 0.70 mg/dL 0.20-1 .30 Not Available [facility] (Lab) [address] [place], [address], 10/14/2024 19:01:05 10/15/19 25 10/14/2024 COMPR EHENS FRANKLIN METAB OLIC PANEL calcium 9.7 mg/dL 8.4-10 .2 Not Available [facility] (Lab) [address] [place], [address], 10/14/2024 19:01:05 10/15/19 25 10/14/2024 COMPR EHENS FRANKLIN METAB OLIC PANEL total protein 6.5 g/dL 6.3-8. 2 Not Available [facility] (Lab) [address] [place], [address], 10/14/2024 19:01:05 10/15/19 25 10/14/2024 COMPR EHENS FRANKLIN METAB OLIC PANEL albumin 4.2 g/dL 3.0-4. 4 Not Available [facility] (Lab) [address] [place], [address], 10/14/2024 19:01:05 10/15/19 25 10/14/2024 COMPR EHENS FRANKLIN METAB OLIC PANEL globulin 2.3 g/dL 2.6-4. 2 low Not Available [facility] (Lab) [address] [place], [address], 10/14/2024 19:01:05 10/15/19 25 10/14/2024 COMPR EHENS FRANKLIN METAB OLIC PANEL A/G ratio 1.8 ratio 1.0-2. 0 Not Available [facility] (Lab) [address] [place], [address], 10/14/2024 19:01:05 10/15/19 25 10/14/2024 TSH thyroid-stim ulating hormone 22.000 uIU/m L 0.465- 4.680 high Not Available [facility] (Lab) [address] [place], [address], 10/14/2024 19:32:25 10/15/19 25 10/14/2024 T4 FREE free T4 0.85 NG/dL 0.78-2 .19 Not Available [facility] (Lab) [address] [place], [address], 10/14/2024 19:35:17 10/15/19 25 10/14/2024 T3 FREE free T3 2.86 pg/mL 2.77-5 .27 Not Available [facility] (Lab) [address] [place], [address], 10/14/2024 19:35:22 10/15/19 25 10/14/2024 JAZMINE TIN ferritin 80 NG/mL 11.1-2 64 Not Available [facility] (Lab) [address] [place], [address], 10/14/2024 19:35:27 01/19/20 25 01/18/2025 LIPID PANEL cholesterol 97 mg/dL 140-19 9 low NIH AZUL NSUS RECOM MENDA TION FOR LAZ STERO L: ADULT CHILD LOW RISK: <200 <170 BORDE RLINE : <200- 239 ----- HIGH RISK: >240 >200 Not Available [facility] (Lab) [address] [place], [address], 01/18/2025 15:44:51 01/19/20 25 01/18/2025 LIPID PANEL triglyceride s 139 mg/dL 0-150 NIH AZUL NSUS REPOR T RECOM MENDA TION FOR TRIGL YCERI GEORGE: ADULT CHILD LOW RISK: <150 ----- BODER LINE: 150-1 99 ----- HIGH RISK: >200 ----- Not Available [facility] (Lab) [address] [place], [address], 01/18/2025 15:44:51 01/19/20 25 01/18/2025 LIPID PANEL HDL cholesterol 42 mg/dL 40- Not Available [facility] (Lab) [address] [place], [address], 01/18/2025 15:44:51 01/19/20 25 01/18/2025 LIPID PANEL LDL cholesterol, calculated 27 mg/dL 0-130 NIH AZUL NSUS REPOR T RECOM MENDA TIONS FOR LDL: ADULT CHILD LOW RISK <130 <110 (OPTI MAL LDL) <100 ----- BORDE RLINE : 130-1 59 ----- HIGH RISK: >160 >130 A TRIGL YCERI DE RESUL T >400 INVAL IDATE S THE CALCU LATIO N FOR LDL FRACT IONAT ION - THE LDL RESUL T WILL NOT BE REPOR BANDAR. Not Available [facility] (Lab) [address] [place], [address], 01/18/2025 15:44:51 01/19/20 25 01/18/2025 TSH thyroid-stim ulating hormone <0.015 uIU/m L 0.465- 4.680 low Not Available [facility] (Lab) [address] [place], [address], 01/18/2025 15:57:33 03/18/20 25 03/18/2025 TSH thyroid-stim ulating hormone <0.015 uIU/m L 0.465- 4.680 low Not Available [facility] (Lab) [address] [place], [address], 03/18/2025 16:17:32 10/17/19 25 10/16/2024 DEXA, axial skele ton [facility] [address] [place] [address] [phone] Patien t Name: KASEY WALKER I Access ion #: [id number] Sex: F : 1949 3 Locati on: RAD Attend ing Physic david: FOREIGN COHEN Orderi Physic david: FOREIGN COHEN Exam Date: 025 9:52 AM Exam Name: XR DEXA-H IPS PELVIS SPINE Admitt ing Diagno sis(es ): RADIOL OGY REPORT - FINAL EXAM: XR DEXA-H IPS PELVIS SPINE HISTOR Y: Screen ing for osteop orosis 74-yea r-old female with osteop orosis screen ing. COMPAR JUAN PABLO: None availa ble. TECHNI QUE: Dual energy x-ray of absorp tion examin ation of the bilate ral hips and lumbar spine was perfor med in AP projec tion. FINDIN GS: Lumbar Spine (L1-L4 ): The mean bone minera l densit y is 1.161 g/cm2 hydrox yapati te, correl ating with a T-scor e of -0.3. Bilate ral hips: The mean bone minera l densit y is 0.682 g/cm2 calciu m hydrox yapati te, correl ating with a T-scor e of -2.6. Page 1 of 2 [facility] Shirley t Name: KASEY WALKER I Access ion #: [id number] Sex: F : 1949 3 Exam Date: 9:52 AM Exam Name: XR DEXA-H IPS PELVIS SPINE Admitt ing Diagno sis(es ): Risk of major osteop orotic fractu re 19.2%; risk of hip fractu re 6.4%. IMPRES BRISEYDA: 1. The patien t's lumbar spine T-scor e is consis tent with normal bone minera l densit y overal l. It should be noted that the BMD at L1 and L2 is consis tent with osteop enia. 2. The patien t's bilate ral hip T-scor e is consis tent with osteop orosis . Accord ing to the [employer]i zation , T-scor e values greate r than -1.0 are normal , values betwee n -1.0 and -2.5 are catego rized as osteop enia, T-scor e of -2.5 or more are catego rized as osteop orosis . Create d and electr onical ly signed by: Mehdi calhoun MD Signed Date: 1:17 PM (CT) Dictat ed by: Mehdi calhoun MD DD: 1:17 PM (CT) DT: 1:17 PM (CT) Page 2 of [address] (Imaging) [address] [place], [address], 04/07/2025 14:24:56 10/20/19 25 10/16/2024 scree ryan breas t agustina, bilat [facility] [address] [facility] [place] [address] Shirley bee Name: KASEY WALKER I Access ion #: [id number] Sex: F : 1949 3 Locati on: RAD Attend ing Physic david: FOREIGN COHEN ER Orderi ng Physic david: FOREIGN COHEN ER Exam Date: 9:52 AM Exam Name: MG ROBBINS BREAST AGUSTINA BILAT Admitt ing Diagno sis(es ): MAMMOG JOSE REPORT - FINAL EXAM: MG ROBBINS BREAST AGUSTINA BILAT HISTOR Y: Screen ing mammo 74-yea r-old female with no curren t breast compla ints. The patien t has a histor y of left breast benign biopsy in the distan t past. COMPAR JUAN PABLO: None availa ble. TECHNI QUE: Bilate ral CC and MLO views of the breast s were perfor med. Digita l Mammog jose images were obtain ed. CAD (compu ter assist ed detect ion) was utiliz ed. 3D Digita l breast tomosy nthesi s was perfor med and used in the interp retati on of images . FINDIN GS: The breast s are almost entire ly fatty. Page [address] [facility] Shirley bee Name: KASEY WALKER I Access ion #: [id number] Sex: F : 1949 3 Exam Date: 9:52 AM Exam Name: MG ROBBINS BREAST AGUSTINA BILAT Admitt ing Diagno sis(es ): There is a focal asymme try in the right inner lower breast seen on both views. No suspic ious calcif icatio ns or bhumika ectura l distor tion are seen. IMPRES BRISEYDA: BIRADS 0: Assess ment incomp lete. Need additi onal imagin g evalua tion. Recomm end spot compre ssion views of the right breast for evalua tion of focal asymme try. Additi onal mammog raphic and/or sonogr aphic imagin g may be ernesto toscano. If the shirley bee's prior mammog jose become s availa ble for compar juan pablo purpos es, an addend um will be cheyenne toscano, and additi onal imagin g may not be necess moiz. Accord ing to the [employer], yearly mammog dov are recomm ended starti ng at age 40 and contin uing as long as the woman is in good health . Clinic al Breast Exam should be part of the period ic health exam-a bout every 3 years for women in their 20s and 30s and every year for women 40 and over. Breast self-e xam is an option for women in their 20s. Any breast change noted on the breast self-e xam she would be report ed prompt ly to the [facility]irley bee[facility] er. A negati ve mammog jose report should not discou rage follow -up or biopsy of a clinic ally signif icant findin g and/or abnorm ality. Dense breast tissue may obscur e small neopla sms. This shirley bee has been entere d into a mammog jose remind er system with a target date for her next mammog nell. Create d and electr onical ly signed by: Mehdi calhoun MD Signed Date: 10:34 AM (CT) Page 2 of 3 [facility] Shirley bee Name: KASEY WALKER I Access ion #: [id number] Sex: F : 1949 3 Exam Date: 9:52 AM Exam Name: MG ITZEL BREAST AGUSTINA BILAT Admitt ing Diagno sis(es ): Dictat ed by: Mehdi calhoun MD DD: 10:34 AM (CT) DT: 10:34 AM (CT) Page 3 of [address] [facility] [place] [address] (Imaging) [address] [place], [address], 04/07/2025 14:24:56 10/28/19 25 10/16/2024 barbara bee agustina, [facility] [address], [place] [address] [phone] Shirley bee Name: KASEY WALKER I Access ion #: [id number] Sex: F : 1949 3 Locati on: RAD Attend ing Physic david: VINNIELUCÍAIND ER Orderi ng Physic david: VINNIE FOREIGN ER Exam Date: 9:52 AM Exam Name: MG ROBBINS BREAST AGUSTINA BILAT Admitt ing Diagno sis(es ): MAMMOG JOSE REPORT - FINAL WITH ADDEND UM ADDEND UM: Previo us mammog jose dated 2021 has been made availa breanne on the PAC system for viewin g. Right lower inner breast focal asymme try is stable since the previo us mammog nell, consis tent with benign ity. No suspic ious findin gs are otherw ise identi fied here. BIRADS 2: Assess ment comple te. Benign findin gs. Recomm end return ing to annual screen ing mammog jose October 2025. Create d and electr onical ly signed by: Mehdi calhoun MD Signed Date: 1:37 PM (CT) Dictat ed by: Mehdi calhoun MD Page [address] [facility] Shirley bee Name: KASEY WALKER I Access ion #: [id number] Sex: F : 1949 5 Exam Date: 9:52 AM Exam Name: MG ROBBINS BREAST AGUSTINA BILAT Admitt ing Diagno sis(es ): DD: 1:37 PM (CT) DT: 1:37 PM (CT) Report _ID: [id number] EXAM: MG ROBBINS BREAST AGUSTINA BILAT HISTOR Y: Screen ing mammo 74-yea r-old female with no curren t breast compla ints. The shirley t has a histor y of left breast benign biopsy in the distan t past. COMPAR JUAN PABLO: None availa ble. TECHNI QUE: Bilate ral CC and MLO views of the breast s were perfor med. Digita l Mammog jose images were obtain ed. CAD (compu ter assist ed detect ion) was utiliz ed. 3D Digita l breast tomosy nthesi s was perfor med and used in the interp retati on of images . FINDIN GS: The breast s are almost entire ly fatty. There is a focal asymme try in the right inner lower breast seen on both views. No suspic ious calcif icatio ns or bhumika ectura l distor tion are seen. IMPRES BRISEYDA: BIRADS 0: Assess ment incomp lete. Need additi onal imagin g evalua tion. Recomm end spot compre ssion views of the right breast for evalua tion of focal Page [address] [facility] Shirley bee Name: [facility] KASEY WORKMAN I Access ion #: [id number] Sex: F : 1949 5 Exam Date: 025 9:52 AM Exam Name: MG SCRN BREAST AGUSTINA BILAT Admitt ing Diagno sis(es ): asymme try. Additi onal mammog raphic and/or sonogr aphic imagin g may be ernesto toscano. If the shirley bee's prior mammog jose become s availa ble for compar juan pablo purpos es, an addend um will be cheyenne toscano, and additi onal imagin g may not be necess moiz. Accord ing to the [employer], yearly mammog dov are recomm ended starti ng at age 40 and contin uing as long as the woman is in good health . Clinic al Breast Exam should be part of the period ic health exam-a bout every 3 years for women in their 20s and 30s and every year for women 40 and over. Breast self-e xam is an option for women in their 20s. Any breast change noted on the breast self-e xam she would be report ed prompt ly to the [facility]. A negati ve mammog jose report should not discou rage follow -up or biopsy of a clinic ally signif icant findin g and/or abnorm ality. Dense breast tissue may obscur e small neopla sms. This patien t has been entere d into a mammog jose remind er system with a target date for her next mammog nell. Create d and electr onical ly signed by: Mehdi calhoun MD Signed Date: 10:34 AM (CT) Dictat ed by: Mehdi calhoun MD DD: 10:34 AM (CT) DT: 10:34 AM (CT) Page 3 of [address] (Imaging) [address] [place], [address], 04/07/2025 14:24:56 10/28/1910/16/2024 MAMMO , scree ryan, digit al, bilat eral No observ ation record ed. [address] [place], [address], 04/07/2025 14:24:56 Result Notes Documentation Provider Name and Address Organization Details Recorded Time Dexa, Axial Skeleton : [facility] [address], [place] [id number] Patient Name: KASEY SHERMAN I Sex: F : 1950 Location: [facility] Attending Physician: MONIK COHEN Ordering Physician: MONIK COHEN Exam Date: 10/16/2024 9:52 AM Exam Name: XR DEXA-HIPS PELVIS SPINE Admitting Diagnosis(es): RADIOLOGY REPORT - FINAL EXAM: XR DEXA-HIPS PELVIS SPINE HISTORY: Screening for osteoporosis 74-year-old female with osteoporosis screening. COMPARISON: None available. TECHNIQUE: Dual energy x-ray of absorption examination of the bilateral hips and lumbar spine was performed in AP projection. FINDINGS: Lumbar Spine (L1-L4): The mean bone mineral density is 1.161 g/cm2 hydroxyapatite, correlating with a T-score of -0.3. Bilateral hips: The mean bone mineral density is 0.682 g/cm2 calcium hydroxyapatite, correlating with a T-score of -2.6. Page 1 of 2 [facility] Patient Name: KASEY SHERMAN I Sex: F : 1950 [id number] Exam Date: 10/16/2024 9:52 AM Exam Name: XR DEXA-HIPS PELVIS SPINE Admitting Diagnosis(es): Risk of major osteoporotic fracture 19.2%; risk of hip fracture 6.4%. IMPRESSION: 1. The patient's lumbar spine T-score is consistent with normal bone mineral density overall. It should be noted that the BMD at L1 and L2 is consistent with osteopenia. 2. The patient's bilateral hip T-score is consistent with osteoporosis. According to the World Health Organization, T-score values greater than -1.0 are normal, values between -1.0 and -2.5 are categorized as osteopenia, T-score of -2.5 or more are categorized as osteoporosis. Created and electronically signed by: Mehdi Mckinnon MD Signed Date: 10/16/2024 1:17 PM (CT) Dictated by: Mehdi Mckinnon MD (CT) (CT) Page 2 of 2 Monik Cohen MD [address], [address], [place], [address], [facility] 04/07/2025 14:24:56 Problems Name Problem SNOMED Code Status Onset Date Resolution Date Notes Provider Name and Address Organization Details Recorded Time Hypothyroid ism 82310033 Active 2024 Carolynn Miranda LPN null, [facility] 5 09:43:24 Hyperlipide adriana 59416161 Active 2024 Monik Cohen MD [address], [place], [place], [address], [facility] 5 16:28:40 Gastric ulcer 278030721 Active 2024 Monik Cohen MD [address], [place], [place], [address], [facility] 16:29:38 Rheumatoid arthritis 29513239 Active 2024 Monik Cohen MD [address], [address], [address], [facility] 16:29:46 Hemorrhoids 17400901 Active 2024 Monik Cohen MD [address], [place] [address], [place], [address], [facility] 16:30:13 Iron deficiency anemia 83754541 Active 2024 Monik Cohen MD [address], [place] [address], [place], [address], [facility] 16:30:48 Anxiety 92051523 Active 2024 Monik Cohen MD [address] [facility], [place] [address], [place], [address], [facility] 16:35:20 Osteoporosi s 35822657 Active 2024 Shellie Murillo MA null, [facility] 16:19:34 Bilateral sciatica 6684994987649 9103 Active 2024 CARLITOS Doran [address] [facility], [place] [address], [place], [address], [facility] 09:45:21 Problem Notes None recorded. Procedures Surgical History Date Name Laterality Status Provider Name and Address Organization Details Recorded Time Total hysterectomy completed Irina Sloan [facility] 10/12/2024 16:10:32 Gastric bypass for obesity completed Irina Sloan [facility] 10/12/2024 16:10:41 cholecystectomy completed Irina Sloan [facility] 10/12/2024 16:10:52 other completed Irina Sloan [facility] 10/12/2024 16:11:28 Imaging Results None recorded. Procedure Notes None recorded. Medical Equipment None Reported. Allergies Allergen ID Allergen Name Allergen Category Reaction Reaction Severity Criticality Documentation Date Start Date Code Code System Note Provider Name and Address Organization Details Recorded Time 74683 Motrin medicatio n Not available Not available Not available 10/12/202423757 8 RxNorm Irina Mirlande russo, RMA null, [facility] 5 16:01:15 80265 Tylenol medicatio n Not available Not available Not available 10/12/202466474 3 RxNorm fever triston/b kike Cohen MD [address] [facility], [facility] [address], [place], [address] [place] [address] [facility] [employer] [facility] 16:38:26 92313 buspirone medicatio n dizziness Not available [facility] 11/03/2024 1827 RxNorm Carolynn Miranda LPN null, [facility] 11:16:03 Medications Name Sig Start Date Stop Date Status Note LastModified by Organization Details LastModified Time prednisone 10 mg tablet - TAKE 4 TABLETS DAY 1-3, 3 TABLETS 4-5, 2 TABLETS DAY 6 AND 1 TABLET DAY 7 10/12 completed Not Available Not Available Not Available azithromyci n 250 mg tablet TAKE 2 TABLETS BY MOUTH TODAY, THEN TAKE 1 TABLET DAILY FOR 4 DAYS DIRECTED 10/12 completed Not Available Not Available Not Available alendronate 70 mg tablet Take 1 tablet every week by oral route for 84 days. active Not Available Not Available No t Available doxycycline monohydrate 100 mg tablet TAKE 1 TABLET BY MOUTH TWICE A DAY 10/12 completed Not Available Not Available Not Available levothyroxi ne 75 mcg tablet TAKE 1 TABLET BY MOUTH EVERY DAY active Not Available Not Available No t Available levothyroxi ne 100 mcg tablet TAKE 1 TABLET BY MOUTH EVERY DAY 01/20 completed Not Available Not Available Not Available levothyroxi ne 88 mcg tablet TAKE 1 TABLET BY MOUTH EVERY DAY active Not Available Not Available No t Available lorazepam 0.5 mg tablet TAKE 1 TABLET BY MOUTH EVERY DAY NEEDED 05/03 completed Not Available Not Available Not Available methotrexat e sodium 2.5 mg tablet TAKE 7 TABLETS BY MOUTH ONCE WEEKLY active Not Available Not Available No t Available dicyclomine 20 mg tablet TAKE 1 TABLET BY MOUTH FOUR TIMES A DAY NEEDED 05/03 completed Not Available Not Available Not Available diazepam 2 mg tablet TAKE 1 TABLET BY MOUTH 2-3 TIMES DAILY NEEDED FOR ANXIETY 10/12 completed Not Available Not Available Not Available benzonatate 100 mg capsule TAKE 1 CAPSULE BY MOUTH THREE TIMES DAILY NEEDED FOR COUGH 10/12 completed Not Available Not Available Not Available levothyroxi ne 50 mcg tablet TAKE 1 TABLET BY MOUTH DAILY 11/03 completed Not Available Not Available Not Available buspirone 10 mg tablet TAKE 1 TABLET BY MOUTH TWICE DAILY NEEDED 11/03 completed Not Available Not Available Not Available folic acid 1 mg tablet TAKE 1 TABLET BY MOUTH EVERY DAY active Not Available Not Available No t Available codeine 10 mg-guaifene sin 100 mg/5 mL oral liquid TAKE 5 ML BY MOUTH TWICE DAILY NEEDED FOR COUGH 10/12 completed Not Available Not Available Not Available methylpredn isolone 4 mg tablets in a dose pack FOLLOW PACKAGE DIRECTION S active Not Available Not Available No t Available amoxicillin 875 mg-potassiu m clavulanate 125 mg tablet TAKE 1 TABLET BY MOUTH TWICE A DAY FOR 7 DAYS 10/12 completed Not Available Not Available Not Available escitalopra m 10 mg tablet TAKE 1 TABLET BY MOUTH EVERY DAY AT BEDTIME 05/03 completed Not Available Not Available Not Available cyclobenzap rine 5 mg tablet Take 1 tablet 3 times a day by oral route as needed for 5 days. 05/15 completed Not Available Not Available Not Available rosuvastati n 5 mg tablet TAKE 1 TABLET BY MOUTH EVERY DAY. LAST REFILL UNTIL SEEN 10/12 completed Not Available Not Available Not Available rosuvastati n 20 mg tablet TAKE 1 TABLET BY MOUTH EVERY DAY active Not Available Not Available No t Available duloxetine 30 mg capsule,del ayed release TAKE 1 CAPSULE BY MOUTH EVERY MORNING 05/03 completed Not Available Not Available Not Available duloxetine 60 mg capsule,del ayed release TAKE 1 CAPSULE BY MOUTH EVERY MORNING 05/03 completed Not Available Not Available Not Available pregabalin 75 mg capsule TAKE 1 CAPSULE BY MOUTH TWICE A DAY 10/12 completed Not Available Not Available Not Available pregabalin 100 mg capsule TAKE 1 CAPSULE BY MOUTH TWICE A DAY 10/12 completed Not Available Not Available Not Available pregabalin 150 mg capsule TAKE 1 CAPSULE BY MOUTH TWICE A DAY 10/12 completed Not Available Not Available Not Available ferrous sulfate 324 mg (65 mg iron) tablet,ben yed release TAKE 1 TABLET BY MOUTH TWICE DAILY 10/12 completed Not Available Not Available Not Available Cough DM ER 30 mg/5 mL oral suspension, extended release TAKE 10 ML TWICE DAILY NEEDED FOR COUGH 10/12 completed Not Available Not Available Not Available Vitals Date Recorded Body weight Body temperature Body mass index (BMI) Body height Heart rate Oxygen saturation Oxygen saturation in Arterial blood by Pulse oximetry Systolic And Diastolic Provider Name and Address Organization Details Last Updated DateTime 5 87151.0 1 g 97.5 [degF] 23.8 kg/m2 157.48 cm 83 /min 98 % 98 % 134/60 mm[Hg] JACSKON Villavicencio [facility] 5 16:00:36 Date Recorded Body height Body mass index (BMI) Body weight Body temperature Heart rate Oxygen saturation Oxygen saturation in Arterial blood by Pulse oximetry Systolic And Diastolic Provider Name and Address Organization Details Last Updated DateTime 5 157.48 cm 21 kg/m2 48100.1 2 g 97.4 [degF] 81 /min 97 % 97 % 126/60 mm[Hg] JACKSON Villavicencio Pedro [place] [facility] 5 14:09:15 Date Recorded Body height Body mass index (BMI) Body weight Body temperature Oxygen saturation Oxygen saturation in Arterial blood by Pulse oximetry Heart rate Systolic And Diastolic Provider Name and Address Organization Details Last Updated DateTime 5 157.48 cm 20.4 kg/m2 75278.1 9 g 97.2 [degF] 97 % 97 % 98 /min 118/72 mm[Hg] Socorro live [facility] 5 09:41:21 Social History Question Answer Notes LastModified by Organization Details LastModified Time Tobacco Smoking Status Former Smoker J[place] [facility] [email or web address] 10/12/2024 16:07:26 Do You Have An Advance Directive? No Information not available 10/12/2024 Are You Blind Or Do You Have Difficulty Seeing? No Information not available 10/12/2024 Is Blood Transfusion Acceptable In An Emergency? Yes Information not available 10/12/2024 What Is Your Level Of Caffeine Consumption? None Information not available 10/12/2024 Are You Deaf Or Do You Have Serious Difficulty Hearing? Yes Normally Waers Hearing Aids In Both Ears Information not available 10/12/2024 What Type Of Diet Are You Following? REGULAR Information not available 10/12/2024 Which Illicit Or Recreational Drugs Have You Used? THC Gummies Information not available 10/12/2024 What Is The Highest Grade Or Level Of School You Have Completed Or The Highest Degree You Have Received? [id number] Information not available 10/12/2024 Have There Been Any Changes To Your Family Or Social Situation? No Information not available 10/12/2024 When Did You Quit Smoking? 16+yearssincelastc igarette Smoked A Couple Pks A Day Quit At Age 24 Information not available 10/12/2024 Do You Use Insect Repellent Routinely? No Information not available 10/12/2024 Where Do You Live? SingleLevelHouse Information not available 10/12/2024 What Was The Date Of Your Most Recent Tobacco Screening? 04/07/2025 Information not available 04/07/2025 Do You Have Any Pets? No Information not available 10/12/2024 What Is Your Relationship Status? Information not available 10/12/2024 Do You Use Your Seat Belt Or Car Seat Routinely? Yes Information not available 10/12/2024 Do You Have Smoke And Carbon Monoxide Detectors In Your Home? Yes Information not available 10/12/2024 At What Age Did You Start Smoking Tobacco? 16 Information not available 10/12/2024 Are You Passively Exposed To Smoke? No Information not available 10/12/2024 Are There Any Smokers In Your House? No Information not available 10/12/2024 Do You Use Sunscreen Routinely? No Information not available 10/12/2024 Have You Recently Traveled Abroad? No Information not available 10/12/2024 Do You Have Difficulty Walking Or Climbing Stairs? No Information not available 10/12/2024 Do You Have Any Dietary Restrictions? No Information not available 10/12/2024 Sex: Female Functional Status Question Answer Note LastModified by Organizat ion Details LastModified Time Do you use any illicit or recreational drugs? Yes THC Gummies Information not available 10/12/2024 Do you or have you ever used any other forms of tobacco or nicotine? No Information not available 10/12/2024 What is your level of alcohol consumption? None Information not available 10/12/2024 Are you currently employed? No retired Information not available 10/12/2024 Do you have transportation difficulties? No Information not available 10/12/2024 Are you able to walk independently without assistance or assistive devices? YESWOREST Information not available 10/12/2024 Do you have difficulty doing errands alone? No Information not available 10/12/2024 Are you able to care for yourself independently? Yes Information not available 10/12/2024 Do you have difficulty dressing, bathing, grooming, or toileting? No Information not available 10/12/2024 What is your exercise level? None Information not available 10/12/2024 Mental Status Question Answer Note LastModified by Organizat ion Details LastModified Time Do you feel stressed (tense, restless, nervous, or anxious, or unable to sleep at night)? [id number] Information not available 10/12/2024 Do you have difficulty concentrating, remembering or making decisions? No Information no t available 10/12/2024 Family History Relationship Description Onset Age of this Age Resolved Age Notes LastModified by Organization Details LastModified Time Brother History of thyroid disorder Not available 16:04:04 Sister History of thyroid disorder Not available 16:04:04 Mother Myocardial infarction 73 Not available 0 10/12/2024 16:04:51 Medical History No medical history recorded. Gynecological HistoryNo gynecological history recorded. Obstetrics History GPAL:G 0 P 0 0 0 0 Immunizations Vaccine Type Date Status Note Provider Nam e and Address Organization Details Recorded Time Influenza, high-dose, trivalent, PF 05/07/2017 completed Not Available [facility] 2024 09:25:22 COVID-19, mRNA, LNP-S, PF, 30 mcg/0.3 mL dose 10/04/2020 completed Not Available [facility] 5 09:25:22 COVID-19, mRNA, LNP-S, PF, 30 mcg/0.3 mL dose 10/29/2020 completed Not Available [facility] 5 09:25:22 COVID-19, mRNA, LNP-S, PF, 30 mcg/0.3 mL dose 05/17/2021 completed Not Available [facility] 5 09:25:22 Influenza, high-dose, quadrivalent, PF 06/02/2021 completed Not Available [facility] 5 09:25:22 COVID-19, mRNA, LNP-S, PF, 30 mcg/0.3 mL dose, cheri-sucrose 11/03/2021 completed Not Available [facility] 025 09:25:22 Influenza, high-dose, quadrivalent, PF 05/14/2022 completed Not Available [facility] 5 09:25:22 COVID-19, mRNA, LNP-S, bivalent, PF, 30 mcg/0.3 mL dose 05/28/2022 completed Not Available [facility] 5 09:25:22 COVID-19, mRNA, LNP-S, PF, cheri-sucrose, 30 mcg/0.3 mL 05/02/2023 completed Not Available [facility] 2024 09:25:22 Influenza, adjuvanted, quadrivalent, PF 05/17/2023 completed Not Available [facility] 09:25:22 COVID-19, mRNA, LNP-S, PF, cheri-sucrose, 30 mcg/0.3 mL 04/02/2024 completed Not Available [facility] 2024 09:25:22 Influenza, adjuvanted, trivalent, PF 05/19/2024 completed Not Available [facility] 2024 09:25:22 COVID-19, mRNA, LNP-S, PF, cheri-sucrose, 30 mcg/0.3 mL 04/19/2025 completed Not Available [facility] 2024 09:25:22 Past Encounters Encounter ID Performer Location Encounter Start Date Encounter Closed Date Diagnosis/Indication Diagnosis SNOMED-CT Code Diagnosis ICD10 Code Diagnosis IMO Codes Diagnosis Note [id number] Monik Cohen MD [facility] Internal [facility] [address] [place] [address] 10/12/2024 15:50:21 10/12/2024 16:40:08 Adult health examination 658969995 Z00.00 Colonoscop y- 10 yrs ago- NL, dueMammogr am- 2022- NLDEXA- Been a whilePneum ovax- Has had them bothPrevna r- Has had them bothShingl es- Has had them bothFLU- 4COVID- Up to date Hypothyroidism 69159501 E03.9 Hyperlipidemia 77946979 E78.5 labs and decide about meds Gastric ulcer 438456320 K25.9 no flare ups Rheumatoid arthritis 698 15242 M06.9 sees rheumatolo gist Hemorrhoids 88944804 K64 .9 stool softner Iron defic iency anemia 77009894 D50.9 Anxiety 19400674 F41.9 try Buspirone Screening mammography 24 260962 Z12.31 Screening for osteoporosis 598713357 Z13.820 Postmenopausal state 764 52227 Z78.0 [id number] Monik Cohen MD [facility] [address] [place] [address] 04/07/2025 14:01:12 04/07/2025 14:47:11 Adult health examination 919170061 Z00.00 Colonoscop y- 10 yrs ago- NL, dueMammogr am- 10/16/24DEX A- 10/16/24Pne umovax- Has had them bothPrevna r- Has had them bothShingl es- Has had them bothFLU- OVID- Up to date Hypothyroidism 24870961 E03.9 Hyperlipidemia 16019300 E78.5 started on meds, check labs in 2 months Gastric ulcer 076735602 K25.9 no flare ups Rheumatoid arthritis 698 28903 M06.9 sees rheumatolo gist Hemorrhoids 89974988 K64 .9 stool softner Iron defic iency anemia 33427526 D50.9 can't take iron Anxiety 85457497 F41.9 getting worse due to family problems, try lorazepam prn15 tabs can last more than a month Osteoporosis 51576361 M8 1.0 [id number] Monik Cohen MD [facility] [address] [place] [address] 05/03/2025 09:23:12 05/03/2025 11:30:12 Bilateral sciatica 4393267158 3709489 M54.31 M54.32 [id number] Health Concerns Section Related Observation LastModified by Organization Detai ls LastModified Time None Recorded Concern Status LastModified by Organization Details LastModified Time None Recorded Advance Directives Directive N: Payers Insurance Date Sequence Insurance Name Policy Number Policy Cobb Covered Member ID Cobb Member ID Guarantor Name 05/18/2025 1 [employer] (MEDICARE REPLACEMENT/ ADVANTAGE - PPO) Kasey Sherman [id number] Kasey Sherman Notes Date Note Type Note Provider Name and Address Organization Details Recorded Time 5 text/html Pt is a 74 y/o here today to establish care. Her Marino is also a ptPrevious Dr [place] Dr. [place] [employer] [place] Hypothyroidism- On medsMeds- Levothyroxine 50 mcg daily Rheumatoid arthritis- Sees Dr. Mary Jane Leal, [facility] has Osteoarthritisknees , handsMeds- Methotrexate sodium 2.5mg 5 tabs once a week, Folic acid Fibromyalgia- has tried diffeent meds, nothing helps IBS-C- Does not take and meds daily, usually OTC meds when it does flare up. Does take dicyclomine 10mg in the past which seems to help Gastric Ulcers- had EGD yrs ago, gets soem symptoms with certain meds Anemic- iron def, can not take oral meds due to side effects, used to get IV iron. Anxiety- she has taken valium and xanax in the past Hyperlipidemia- was on low dose meds Monik Cohen MD [address], [place], [address], [facility] 10/12/2024 16:39:34 5 text/html she is here for f/uHer Marino is also a ptUnder a lot of stress with her having Chemo and shes lost 15lbsPT IS NOT FASTING ( [employer] ) Hypothyroidism- On medsMeds- Levothyroxine 75 mcg daily Rheumatoid arthritis- Sees Dr. Mary Jane Leal, [facility] has Osteoarthritisknees , handsMeds- Methotrexate sodium 2.5mg 5 tabs once a week, Folic acid Fibromyalgia- has tried different meds, nothing helps IBS-C- Does not take and meds daily, usually OTC meds when it does flare up. Does take dicyclomine 10mg which helps Gastric Ulcers- had EGD yrs ago, gets some symptoms with certain meds Anemic- iron def, can not take oral meds due to side effects, used to get IV iron. Anxiety- she has taken Valium and xanax in the past Hyperlipidemia- was on low dose meds Monik Cohen MD [address], [place], [address], [facility] 04/07/2025 14:34:53 5 text/html ROS as noted in the HPI Patient is 75y/o female who is here to discuss bilateral sciatica. She reports that she has been having shooting pains down her left leg mid thigh and low back pain. She also reports that she has it on her right side without shooting pains. She reports that she has tried ice and heat and movements but nothing has given her any relief. She also reports that she has been sitting with her legs elevated. She reports taking tramadol without relief. She denies numbness or tingling of extremities, loss of bowel or bladder control, fever, recent injury or fall, or n/v/d at this time. Sarah Garrdio, AUDIO VISUAL SECRETARY-C [address] [facility] [address], [place], [address], [facility] 05/03/2025 10:15:28 OBGyn Episode No OBEpisode recorded.
--- OUTSIDE RECORDS SUMMARY | 2025-06-05 15:50 | XMS_ITS | Encounter Summary ---
Author Organization [employer] Address 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
--- OUTSIDE RECORDS SUMMARY | 2025-06-05 15:50 | XMS_ITS | Encounter Summary ---
Author Organization [employer] Address 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
--- OUTSIDE RECORDS SUMMARY | 2025-06-05 15:50 | XMS_ITS | Encounter Summary ---
Author Organization [facility] [employer] Address 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
--- OUTSIDE RECORDS SUMMARY | 2025-06-05 15:50 | XMS_ITS | Encounter Summary ---
Author Organization [employer] Address 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
--- OUTSIDE RECORDS SUMMARY | 2025-06-05 15:50 | XMS_ITS | Encounter Summary ---
Author Organization [employer] Address 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
--- OUTSIDE RECORDS SUMMARY | 2025-06-05 15:50 | XMS_ITS | Encounter Summary ---
Author Organization [employer] Address [address] [place] [address] Care Team Providers Care Mechanical Fitter Name Role Phone Unavailable Primary Care Provider Unavailabl e Encounter Details Date Type Department Care Team (Late st Contact Info) Description 08/30/1999 Outpatient Historical [facility] Remberto Forde Social History Tobacco Use Types Packs/Day Years Used Date Smoking Tobacco: Never Assessed Comments Unknown Sex and Gender Information Value Date Recorded Sex Assigned at Not on file Legal Sex Female 3:41 AM CRO Gender Identity Not on file Sexual Orientation Not on file documented as of this encounter Plan of Treatment Not on file documented as of this encounter Visit Diagnoses Not on filedocumented in this encounter
--- OUTSIDE RECORDS SUMMARY | 2025-06-05 15:50 | XMS_ITS | Encounter Summary ---
Author Organization [employer] Address [address] [place] [address] Care Team Providers Care Optical Instrument Repairer Name Role Phone Unavailable Primary Care Provider Unavailabl e Encounter Details Date Type Department Care Team (Late st Contact Info) Description 11/13/1999 Outpatient Historical [facility] 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
--- OUTSIDE RECORDS SUMMARY | 2025-06-05 15:50 | XMS_ITS | Clinical Summary ---
Author Organization [employer] Address [address] 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
--- OUTSIDE RECORDS SUMMARY | 2025-06-05 15:50 | XMS_ITS | Encounter Summary ---
Author Organization [employer] Address 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
--- OUTSIDE RECORDS SUMMARY | 2025-06-05 15:50 | XMS_ITS | Encounter Summary ---
Author Organization [employer] Address 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
--- OUTSIDE RECORDS SUMMARY | 2025-06-05 15:50 | XMS_ITS | Encounter Summary ---
Author Organization [employer] Address [address] [place] [address] Care Team Providers Care Interventional Pain Physician Name Role Phone Unavailable Primary Care Provider Unavailabl e Encounter Details Date Type Department Care Team (Late st Contact Info) Description 03/13/2000 Outpatient Historical [facility] DR[facility] 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
--- OUTSIDE RECORDS SUMMARY | 2025-06-05 15:50 | XMS_ITS | Encounter Summary ---
Author Organization [employer] Address 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
--- OUTSIDE RECORDS SUMMARY | 2025-06-05 15:50 | XMS_ITS | Encounter Summary ---
Author Organization [employer] Address [address] [place] [address] Care Team Providers Care Planning Division Superintendent Name Role Phone Unavailable Primary Care Provider Unavailabl e Encounter Details Date Type Department Care Team (Late st Contact Info) Description 12/16/1998 Outpatient Historical [facility] Remberto Forde Social History Tobacco Use Types Packs/Day Years Used Date Smoking Tobacco: Never Assessed Comments Unknown Sex and Gender Information Value Date Recorded Sex Assigned at Not on file Legal Sex Female 3:41 AM SEWER HEAD Gender Identity Not on file Sexual Orientation Not on file documented as of this encounter Plan of Treatment Not on file documented as of this encounter Visit Diagnoses Not on filedocumented in this encounter
--- OUTSIDE RECORDS SUMMARY | 2025-06-05 15:50 | XMS_ITS | Clinical Summary ---
Author Organization [facility] Address [address] [place] [address] Care Team Providers Care Wirer Passenger Car Name Role Phone Sandro Sosa Primary Care Provider [phone] Allergies Active Allergy Reactions Criticality Noted Date Comments Acetaminophen Other (See comments) Reaction: Unknown, Amitriptyline Carisoprodol Codeine Fentanyl Gabapentin Ibuprofen Other (See comments) Reaction: Unknown, Iron Nabumetone Naproxen Nsaids (Non-Steroidal Anti-Inflammatory Drug) Oxaprozin Pregabalin Quinine Other (See comments) Reaction: Unknown, Topiramate Other (See comments) Low 01/29/2017 Severe Weakness Medications traZODone (DESYREL) 50 mg tablet TAKE 2 TABLETS DAILY AT BEDTIME 180 2 4 Active predniSONE (DELTASONE) 5 mg tablet take 1-2 pills every day as needed for pain 60 2 6 Active gabapentin (NEURONTIN) 300 mg capsule take 1 capsule by oral route 2 times every day 60 3 7 Active vitamin E (AQUASOL E) 200 unit capsule Take according to scmg-srf-faljkw r package directions 0 0 8 Active levothyroxine (SYNTHROID) 112 mcg tablet Take one by mouth one time per day 90 3 9 Active dicyclomine (BENTYL) 20 mg tablet Take one by mouth one time per day 0 0 8 Active ascorbic acid, vitamin C, (VITAMIN C) 500 mg capsule, extended release CR capsule Take according to eivq-pdo-hkimcn r package directions 0 0 8 Active b complex vitamins (B COMPLEX-VITAMIN B12) tablet Take according to gavd-nim-tfpemo r package directions 0 0 8 Active glucosamine-cho ndroit-vit C-Mn capsule Take according to jqoo-unf-iaixil r package directions 0 0 8 Active calcium 500 mg tablet Take according to pcny-hrb-rbhjmq r package directions [address] (CYMBALTA) 30 mg capsuleIndicati ons:Fibromyalgi a TAKE ONE CAPSULE BY MOUTH ONE TIME DAILY 30 capsule 5 8 Active hydroxychloroqu ine (PLAQUENIL) 200 mg tablet Take 1 tablet (200 mg total) by mouth 2 (two) times a day. 60 tablet 5 8 Active topiramate (TOPAMAX) 50 mg tablet Take 1 tablet (50 mg total) by mouth nightly. 30 tablet 5 8 Active metaxalone (SKELAXIN) 800 mg tablet Take 1 tablet (800 mg total) by mouth 3 (three) times a day. 270 tablet 3 8 Active Hospital, Clinic, or Other Facility Administered Medication Ordered Dose Route Frequency Start Date End Date Status methylPREDNISolone acetate (DEPO-medrol) injection 80 mgIndications:Trochanteric bursitis of both hips 80 mg OTHER Once 01/29/2017 Act luis daniel Active Problems Problem Noted Date Diagnosed Date Weight gain 09/26/2017 Rheumatoid arthritis of mult iple sites without rheumatoid factor 05/07/2017 Leukopenia 05/07/2017 High risk medication use 05/07/2017 Dry eyes 05/07/2017 Encounter for immunization 05/07/2017 Primary osteoarthritis involving multiple joints 05/07/2017 Primary osteoarthritis 01/29/2017 Low thyroid stimulating hormone (TSH) level 01/04 Fibromyalgia 01/29/2017 Long-term current use of hig h risk medication other than anticoagulant 01/29/2017 Iron deficiency anemia 01/29/2017 Trochanteric bursitis of both hips 01/29/2017 Lymphocytic thyroiditis 12/19/2013 Overview (11/07/2016): CHR LYMPHOCYT THYROIDIT Non-toxic multinodular goiter 12/19/2013 Overview (11/09/2016): NONTOX MULTINODUL GOITER Rheumatoid arthritis involvi ng multiple sites with positive rheumatoid factor 12/19/2013 Overview (11/09/2016): Arthritis, rheumatoid Migraine 10/07/2013 Overview (11/09/2016): Chronic migraine Fibrositis 03/11/2013 Overview (11/09/2016): Fibromyalgia Immunizations Immunization Administration Dates Next Due Influenza, Trivalent, High D ose, Split, Preservative Free, Intramuscular 05/07/2017 Surgical History Surgery Date Site/Laterality Comments ARTHROCENTESIS OF TROCHANTER IC BURSA Arthrocentesis of the left hip trochanteric bursa OTHER SURGICAL HISTORY Arthrocentesis of the right hip joint Medical History Medical History Date Comments Hx Other Medical fibromyalgi Hx Other Medical rhematiod Hx Other Medical IBS Anemia Anemia Gastric ulcer stomach ulcer Osteoarthritis osteoarthritis Fibrositis fibromyalgia Hx Other Medical knee and elbow rheumatoid arthritis Hx Other Medical Headache, migra ine Tension headache Headache, tensi on Rheumatoid arthritis (HCC) Rheum atoid arthritis Disorder of thyroid Thyroid dise ase Hx Other Medical fibromyalgia Hx Other Medical hysterectomy Hx Other Medical osteoarthritis Family History Medical History Relation Name Comments Rheum arthritis Mother Rheumatoid a rthritis; Rheum arthritis Other 1 Family histo ry of Rheumatoid arthritis; Heart disease Other 2 Family history of Heart disease; Relation Name Status Comments Mother Other 1 Other 2 Social History Tobacco Use Types Packs/Day Years Used Date Smoking Tobacco: Former Smokeless Tobacco: Never Alcohol Use Standard Drinks/Week Comments No 0 (1 standard drink = 0.6 oz pur e alcohol) Comments Unknown Sex and Gender Information Value Date Recorded Sex Assigned at Not on file Legal Sex Female 3:11 PM ICE SELLER Gender Identity Not on file Sexual Orientation Not on file Obstetrics History Last Filed Vital Signs Vital Sign Reading Time Taken Comments Blood Pressure 120/70 09/26/2017 11:02 AM ICE SELLER Pulse 79 09/26/2017 11:02 AM ICE SELLER Temperature 36.4 C (97.5 F) 09/26/2017 11:02 AM ICE SELLER Respiratory Rate 16 09/26/2017 11:02 AM ICE SELLER Oxygen Saturation 98% 09/26/2017 11:02 AM ICE SELLER Inhaled Oxygen Concentration - - Weight 75.8 kg (167 lb) 09/26/2017 11:02 AM ICE SELLER Height 160 cm (5' 3) 09/26/2017 11:02 AM ICE SELLER Body Mass Index 29.58 09/26/2017 11:02 AM ICE SELLER Plan of Treatment Not on file Insurance [employer] MEDICARE Care Teams Wirer Passenger Car Relationship Specialty Start Date End Date Sandro Sosa [address] [place] [address] PCP - General 11/02/16
--- OUTSIDE RECORDS SUMMARY | 2025-06-05 15:50 | XMS_ITS | Encounter Summary ---
Author Organization [employer] Address 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
--- OUTSIDE RECORDS SUMMARY | 2025-06-05 15:50 | XMS_ITS | Encounter Summary ---
Author Organization [employer] Address [address] [place] [address] Care Team Providers Care Pattern Duplicator Name Role Phone Unavailable Primary Care Provider Unavailabl e Encounter Details Date Type Department Care Team (Late st Contact Info) Description 02/07/2000 Outpatient Historical HIS [facility] DR. 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
--- OUTSIDE RECORDS SUMMARY | 2025-06-05 15:51 | XMS_ITS | Patient Health Record ---
Author Organization [facility] Address [address] [place] [address] Care Team Providers Care Trimming Department Blocker Name Role Phone Livier Gutierrez Unavailable [phone] Reason For Referral No Information Medications Medication SIG (Take, Route, Fr equency, Duration) Notes Start Date End Date Status Valium 2 MG take 2 tablets (4 mg ) by oral route 3 times per day Oral 3 Act luis daniel traMADol HCl 50 MG take 1 tablet (50 mg ) by oral route every 4-6 hours as needed for 90 days Oral 6; Duration: 90 06/17/2018 Active Synthroid 112 MCG Oral Ac tive Problems Problem Type SNOMED Code ICD Code Onset Dates Problem Status W/U Status Risk Notes Problem Disorder of thyroid gland (70261907) Disorder of thyroid, unspecified (E07.9) Active confirmed Problem Rheumatoid arthritis (83632779) Rheumatoid arthritis, unspecified (M06.9) Active confirmed Problem Fibromyalgia (206277824) Fibromyalgia (M79.7) Active confirmed Plan Of Treatment No Information Insurance Providers Payer Name Payer Address Payer Phone Subscriber Number Group Number Insured Name Patient Relationship to Insured Coverage Start Date Coverage End Date [employer] [address] [address] [place] [address] [phone] [id number] Kasey Rodriguez Self - patient is the insured Medical (General) History Surgical History Surgery Date(Month/Year) Hand surgery; 2017-12-25 Gallbladder removal; 2017-12-25 Hysterectomy; 2017-12-25 tonsilectomy; 2017-12-25
--- NOTE | 2025-06-05 15:59 | ED.FALL ---
HPI - Fall General Chief Complaint: Fall Stated Complaint: fall yesterday Time Seen by Provider: 06/05/25 15:57 Source: patient Mode of arrival: ambulatory Limitations: no limitations History of Present Illness HPI Narrative: 75 YEARS OLD WHITE FEMALE TRIPPED FELL IN THE KITCHEN LAST NIGHT AT THE FLOOR BY RIGHT FOREHEAD CAUSING 1 CM LACERATION. NO LOSS OF CONSCIOUSNESS, CAME TO THE ED BY PRIVATE CAR TODAY COMPLAINING OF RIGHT FOREHEAD PAIN, RIGHT RIB PAIN AND RIGHT HIP PAIN BE ED COMPLAINING OF NAUSEA AND FEELING DIZZY. HISTORY OF HYPERLIPIDEMIA, HYPOTHYROIDISM NOT ON ANTI-PLATELET OR ANTICOAGULANT MEDICATION HISTORY OF FROM A TOILET ARTHRITIS FIBROMYALGIA AND OS TO ARTHRITIS. SHE DENIES ANY FEVER OR CHILLS. Related Data Home Medications ?Medication ?Instructions ?Recorded ?Confirmed ?Last Taken ?Type cholecalciferol (vitamin D3) 125 125 mcg PO .twiceweekly 02/26/22 12/02/23 Unknown History mcg (5,000 unit) capsule calcium carbonate 500 mg PO DAILY 03/05/23 12/02/23 Unknown History zoledronic acid 5 mg/100 mL in ea IV .once a year 12/02/23 12/02/23 Unknown History mannitol 5 %-water intravenous piggybck (Reclast) Allergies Allergy/AdvReac Type Severity Reaction Status Date / Time acetaminophen Allergy Unknown Unknown Verified 12/02/23 11:15 codeine Allergy Unknown Unknown Verified 12/02/23 11:15 ibuprofen Allergy Unknown unknown Verified 12/02/23 11:15 pregabalin Allergy Unknown Unknown Verified 12/02/23 11:15 quinine Allergy Unknown unknown Verified 12/02/23 11:15 All antidepressants Allergy Unknown Unknown Uncoded 12/02/23 11:15 Review of Systems Review of Systems: All systems reviewed & are unremarkable except as noted in HPI and below PMFSH Past Medical History Medical History Hypothyroidism (acquired) History of gastric ulcer (~09/2021) Age related osteoporosis Environmental allergies Chronic low back pain Rheumatoid arthritis with rheumatoid factor of multiple sites without organ or systems involvement Cataract Dyslipidemia Anemia Anxiety Insomnia Unspecified osteoarthritis, unspecified site Thyroid disorder IBS (irritable bowel syndrome) Surgical History Surgical History History of cholecystectomy 1978 History of sleeve gastrectomy 1976 History of eye surgery implants-2019 History of thumb surgery bi-lateral - age med 30's History of total hysterectomy 1976 History of cataract surgery Left-04/07/2019 Right-04/22/2019 Family History Family History Mother Acute myocardial infarction Rheumatoid arthritis Heart disease Thyroid disorder Father Heart disease Sibling Thyroid disorder Social History Social History Smoking status: Former smoker Second hand tobacco smoke exposure: No Smoking end date: 08/05/83 Alcohol intake: never Substance use: never Substance use type: does not use Lack of Transportation: No Lack of Food: Never True Current Housing: I Have Housing Concerned About Future Housing: No Difficulty Paying Gas/Electric Bills: No Difficulty Paying for Meds: No Currently Unemployed: No Education: High School Diploma/GED Difficulty w/ Childcare or Family Care: No Spiritual care concerns: No Exam Narrative: GENERAL APPEARANCE: WELL-DEVELOPED, WELL-NOURISHED SKIN: NORMAL COLOR HEAD: NORMOCEPHALIC, RIGHT FOREHEAD 1 CM LACERATION, SUBCUTANEOUS, NO GAPPING, HAD A BAND-AID ON IT EYES: CLEAR CONJUNCTIVA ENT: OROPHARYNX NORMAL, EARS NORMAL, NOSE NORMAL NECK: SUPPLE, NONTENDER CHEST AND RESPIRATORY: AIRWAY PATENT, NO RESPIRATORY DISTRESS, NO ACCESSORY MUSCLE USE, RIGHT CHEST TENDERNESS, NO BRUISES OR SWELLING OR RASH HEART: REGULAR RATE/RHYTHM ABDOMEN: SOFT, NONTENDER, NO ORGANOMEGALY, QUIET BOWEL SOUNDS VASCULAR: NORMAL PERIPHERAL PULSES, NORMAL CAPILLARY REFILL. MUSCULOSKELETAL: DIFFUSE TENDERNESS RIGHT HIP LATERALLY, NO BRUISES, NO DEFORMITY, GOOD RANGE OF MOTION. NEUROLOGIC: ALERT AND ORIENTED ?3, HIGHWAY ADMINISTRATIVE ENGINEER IS NORMAL TESTED, NO GROSS MOTOR DEFICIT Course Vital Signs Vital signs: Vital Signs Temperature 36.4 C 06/05/25 15:50 Pulse Rate 116 H 06/05/25 15:50 Respiratory Rate 17 06/05/25 15:50 Blood Pressure 143/97 H 06/05/25 15:50 Pulse Oximetry 100 06/05/25 15:50 Oxygen Delivery Room Air 06/05/25 15:50 Temperature 36.4 C 06/05/25 15:50 Pulse Rate 109 H 06/05/25 17:02 Respiratory Rate 20 06/05/25 17:02 Blood Pressure 156/90 H 06/05/25 17:02 Pulse Oximetry 99 06/05/25 17:02 Oxygen Delivery Room Air 06/05/25 15:50 MDM - Fall MDM Narrative Medical decision making narrative: PATIENT TRIPPED AND FELL LAST NIGHT, VITAL SIGNS SHOWING HEART RATE OF 116 OTHERWISE WITHIN NORMAL LIMIT PHYSICAL EXAMINATION SHOWING A HEALING 1 CM LACERATION RIGHT FOREHEAD, DIFFUSE TENDERNESS RIGHT CHEST AND RIGHT HIP LATERALLY CT HEAD AND CT CERVICAL SPINE WITHOUT CONTRAST SHOWED NO ACUTE ABNORMALITIES X-RAY OF THE RIGHT RIBS AND RIGHT HIP SHOWED NO ACUTE OSSEOUS ABNORMALITY SEE IN THE ED PATIENT RECEIVED A TETANUS SHOT, 1 L OF NORMAL SALINE IV, 8 MG ZOFRAN IV, DILAUDID 0.5 MG IV AND VALIUM 5 MG IV DIAGNOSIS CLOSED HEAD INJURY, RIGHT FOREHEAD LACERATION, CHEST CONTUSION, RIGHT HIP CONTUSION. THE PT WAS DISCHARGED TO HOME.THE PT,S CONDITION UPON DISCHARGE WAS FAIR,EDUCATION WAS PROVIDED TO THE PT IN REFERENCE TO THE FINAL IMPRESSION,DISCHARGE STUDY RESULTS,TREATMENT,PROGNOSIS AND NEED FOR FOLLOW UP . Differential Diagnosis Differential diagnosis: Likely concussion without loss of consciousness and other Imaging Data Radiologist's impression: Impressions Head CT 06/05/25 17:33 Impression: 1.No acute intracranial abnormality. Cervical Spine CT 06/05/25 17:35 Impression: No acute abnormality. Ribs w/Chest X-Ray 06/05/25 17:51 Impression: No acute fracture or malalignment. Hip/Pelvis X-Ray 06/05/25 17:53 Impression: No acute fracture or malalignment. Critical Care Time Critical Care Time Critical Care Time: No Discharge Plan Discharge Clinical Impression: Forehead laceration, Contusion Patient Disposition: Home Condition: Stable Instructions: Laceration (ED), Concussion (ED), Contusion in Adults (ED) Additional Instructions: RETURN IF SYMPTOMS ARE WORSENING , CALL YOUR FAMILY PHYSICIAN FOR APPOINTMENT, TAKE TYLENOL NEEDED FOR ACHES AND PAIN, CONTINUE HOME MEDICATIONS. Patient Language: Turkish Prescriptions: New ondansetron 4 mg tablet,disintegrating 4 mg PO Q4H PRN (Reason: nausea and vomiting) Qty: 10 0RF No Action cholecalciferol (vitamin D3) 125 mcg (5,000 unit) capsule 125 mcg PO .twiceweekly calcium carbonate 500 mg calcium (1,250 mg) tablet,chewable 500 mg PO DAILY dicyclomine 20 mg tablet 20 mg PO TID PRN (Reason: Anxiety) Qty: 30 0RF zoledronic kqnj-wpuxyruy-lnjfm [Reclast] 5 mg/100 mL piggyback IV .once a year levothyroxine 50 mcg tablet 50 mcg PO DAILY Qty: 90 1RF diazepam 2 mg tablet 2 mg PO BID-TID PRN (Reason: anxiety) Qty: 90 1RF rosuvastatin 5 mg tablet 5 mg PO DAILY Qty: 90 0RF Rx Instructions: LAST REFILL TUNIL SEEN Follow-up/Referrals: Liz Cohen M.D. [Primary Care Provider, Anesthesiology]
[2025-06-05] MEDS: TETANUS,DIPHTHERIA,AC PERTUSSIS ADULT (0.5 ML) BOOSTRIX IM (16:48)
[2025-06-05] MEDS: HYDROmorphone HCL INJ (*CRX) 1 MG/ML SYR 0.5 MG IV PUSH (16:58)
[2025-06-05] MEDS: SODIUM CHLORIDE 0.9% IV 1,000 ML 999 ML IV CONT (16:59)
[2025-06-05] MEDS: ONDANSETRON INJ 4 MG/2 ML VIAL 8 MG IV PUSH (16:59)
[2025-06-05 17:02] VITALS: BP 156/90; PULSE 109; RESP 20; O2SAT 99
[2025-06-05] MEDS: diazePAM INJ (*CRX) 10 MG/2 ML SYRINGE 5 MG IV PUSH (18:14)
[2025-06-05 18:15] VITALS: BP 160/67; PULSE 86; RESP 18; O2SAT 100
== END 2025-06-05 19:10 | disposition home or self-care (01) ==
PROVIDERS: Emergency Provider Emergency Medicine; PCP Anesthesiology
DX: S01.81XA Laceration without foreign body of other part of head, initial encounter (principal); S20.211A Contusion of right front wall of thorax, initial encounter; S70.01XA Contusion of right hip, initial encounter; Z23 Encounter for immunization; E03.9 Hypothyroidism, unspecified; E78.5 Hyperlipidemia, unspecified; M05.79 Rheumatoid arthritis with rheumatoid factor of multiple sites without organ or systems involvement; M19.90 Unspecified osteoarthritis, unspecified site; K58.9 Irritable bowel syndrome, unspecified; F41.9 Anxiety disorder, unspecified; Z98.84 Bariatric surgery status; Z87.891 Personal history of nicotine dependence; Z86.2 Personal history of diseases of the blood and blood-forming organs and certain disorders involving the immune mechanism; Z90.710 Acquired absence of both cervix and uterus; Z90.49 Acquired absence of other specified parts of digestive tract; Z98.42 Cataract extraction status, left eye; Z98.41 Cataract extraction status, right eye; Z79.899 Other long term (current) drug therapy; W01.0XXA Fall on same level from slipping, tripping and stumbling without subsequent striking against object, initial encounter
CPT/HCPCS: 70450; 71046; 71100; 72125; 73502; 90471; 90715; 96361; 96374; 96375; 99284; J1171; J2405; J3360; J7030

== ENCOUNTER 2025-06-16 15:35 | Inpatient (IN) | payer MEDICARE, SELFPAY ==
[2025-06-16] VITALS (24 sets, daily range): BP systolic 124–173; BP diastolic 57–129; PULSE 70–117; RESP 11–23; TEMP 36.5–37.1; O2SAT 96–100
--- NOTE | ~2025-06-16 | XR_ITS ---
EXAMINATION: XR chest 2V, 06/16/2025 17:15 JUVENILE CORRECTIONS OFFICER HISTORY: fever, cough COMPARISON: No comparisons available. Technique: 2 views obtained. Findings: Moderate left basilar infiltrate and effusion. No pneumothorax. Heart is normal size. Mediastinal and hilar contours are within normal limits. Bony thorax no acute abnormality. Impression: Small left lower lobe pneumonia Reviewed, dictated and finalized at location P. NILE CORRECTIONS OFFICER Impression: Small left lower lobe pneumonia
--- NOTE | ~2025-06-16 | CT_ITS ---
CT abdomen pelvis w con INDICATION:abd pain, N/V x 3w . COMPARISON: None. TECHNIQUE: Axial images of the abdomen and pelvis were obtained following infusion of 100 mL Isovue 300. Dose optimization technique was utilized. FINDINGS: There is a small left pleural effusion. The liver parenchyma is unremarkable. No intrahepatic mass or ductal dilatation is evident. The patient has had a cholecystectomy. The pancreas and spleen are normal in appearance. The adrenal glands are symmetric in size. The kidneys demonstrate symmetric uptake of contrast. No cystic mass is evident. There is no solid mass. There is no hydronephrosis. 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 There are no bowel obstruction or acute appendicitis. The bladder and rectum are normal. No free intraperitoneal fluid or air is evident. There is no significant retroperitoneal lymphadenopathy. The aorta, visceral vessels and renal arteries demonstrate normal caliber and patency. There is enlargement of the right gluteal muscle with increased density may represent intramuscular hematoma. This measures 5.7 x 6.7 cm. IMPRESSION: No acute abnormality is noted in the abdomen and pelvis. Large right gluteal muscle with increased density suggestive of a intramuscular hematoma. Correlate clinically. All CT scans at this facility are performed using low dose modulation techniques as appropriate to perform exam including the following: automated exposure control; use of iterative reconstruction technique; adjustment of the mA and/or kV according to patient size (this includes techniques or standardized protocols for targeted exams where dose is matched to indication/reason for exam). Reviewed, dictated and finalized at location S. TH CARE MARKETING MANAGER IMPRESSION: No acute abnormality is noted in the abdomen and pelvis. Large right gluteal muscle with increased density suggestive of a intramuscular hematoma. Correlate clinically. All CT scans at this facility are performed using low dose modulation techniqu es as appropriate to perform exam including the following: automated exposure c ontrol; use of iterative reconstruction technique; adjustment of the mA and/or kV according to patient size (this includes techniques or standardized protocol s for targeted exams where dose is matched to indication/reason for exam).
--- OUTSIDE RECORDS SUMMARY | 2025-06-16 16:11 | XMS_ITS | Encounter Summary ---
Author Organization [employer] Address 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
--- OUTSIDE RECORDS SUMMARY | 2025-06-16 16:11 | XMS_ITS | Encounter Summary ---
Author Organization [email or web address] Address 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
--- OUTSIDE RECORDS SUMMARY | 2025-06-16 16:11 | XMS_ITS | Encounter Summary ---
Author Organization [employer] Address 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
--- OUTSIDE RECORDS SUMMARY | 2025-06-16 16:11 | XMS_ITS | Encounter Summary ---
Author Organization [employer] Address 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
--- OUTSIDE RECORDS SUMMARY | 2025-06-16 16:11 | XMS_ITS | Encounter Summary ---
Author Organization [employer] Address 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
--- OUTSIDE RECORDS SUMMARY | 2025-06-16 16:11 | XMS_ITS | Encounter Summary ---
Author Organization [employer] Address 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
--- OUTSIDE RECORDS SUMMARY | 2025-06-16 16:11 | XMS_ITS | Encounter Summary ---
Author Organization [employer] Address [address] [place] [address] Care Team Providers Care Telecommunications Engineer Name Role Phone Unavailable Primary Care Provider Unavailabl e Encounter Details Date Type Department Care Team (Late st Contact Info) Description 06/14/1999 Outpatient Historical [facility] Forde Social History Tobacco Use Types Packs/Day Years Used Date Smoking Tobacco: Never Assessed Comments Unknown Sex and Gender Information Value Date Recorded Sex Assigned at Not on file Legal Sex Female 3:41 AM TIP OUT WORKER Gender Identity Not on file Sexual Orientation Not on file documented as of this encounter Plan of Treatment Not on file documented as of this encounter Visit Diagnoses Not on filedocumented in this encounter
--- OUTSIDE RECORDS SUMMARY | 2025-06-16 16:11 | XMS_ITS | Encounter Summary ---
Author Organization [employer] Address [address] [place] [address] Care Team Providers Care Traffic Recorder Name Role Phone Unavailable Primary Care Provider Unavailabl e Encounter Details Date Type Department Care Team (Late st Contact Info) Description 03/15/1999 Outpatient Historical [facility] Forde Social History Tobacco Use Types Packs/Day Years Used Date Smoking Tobacco: Never Assessed Comments Unknown Sex and Gender Information Value Date Recorded Sex Assigned at Not on file Legal Sex Female 3:41 AM PROGRAM ADVISOR Gender Identity Not on file Sexual Orientation Not on file documented as of this encounter Plan of Treatment Not on file documented as of this encounter Visit Diagnoses Not on filedocumented in this encounter
--- OUTSIDE RECORDS SUMMARY | 2025-06-16 16:11 | XMS_ITS | Clinical Summary ---
Author Organization [facility] Address [address] [place] [address] Care Team Providers Care Melt Helper Name Role Phone Sandro Sosa MD Primary Care Provider Mehdi Joseph MD Unavailable Source Comments [facility],non-owned Affiliates and Associated Physician Practices is amultiple site organization consisting of ambulatory clinics and hospital sitesin [place], [place], [place]. This disclosure is being madepursuant to the Care Everywhere program and may not contain all information available regarding this patient. Last updated 18.[facility] [employer] Allergies Active Allergy Reactions Criticality Noted Date [...] Active azelastine (ASTELIN) 137 MCG/SPRAY nasal spray Norco 2 Sprays into each nostril 2 times [...] 200 MG tabletIndicatio ns:Rheumatoid arthritis(714.0 ) ([facility]LY [facility]) Take 1 Tab by mouth 2 times [...] Name Comments Arthritis Mother Heart Disease Mother [place] Relation Name Status Comments Brother Alive Father [...] on file Legal Sex Female 4:25 AM TECHNOLOGY OFFICER Gender Identity Not on file Sexual Orientation Not on file Last Filed Vital Signs Vital Sign Reading Time Taken Comments Blood Pressure 96/68 09/08/2010 11:05 AM TECHNOLOGY OFFICER Pulse 74 09/08/2010 11:05 AM TECHNOLOGY OFFICER Temperature - - Respiratory Rate - - Oxygen Saturation - - Inhaled Oxygen Concentration - - Weight 54.9 kg (121 lb) 09/08/2010 11:05 AM TECHNOLOGY OFFICER Height 162.6 cm (5' 4) 09/08/2010 11:05 AM TECHNOLOGY OFFICER Body Mass Index 20.77 09/08/2010 11:05 AM TECHNOLOGY OFFICER Plan of Treatment Health Maintenance Due Date [...] age to complete this topic Care Teams Melt Helper Relationship Specialty Start Date End Date Sandro Sosa MD [address] [place] [phone] PCP - General 01/04/09 Mehdi Joseph MD [address] [place] [id number] Gastroenterology 04/26/10
--- OUTSIDE RECORDS SUMMARY | 2025-06-16 16:11 | XMS_ITS | Clinical Summary ---
Author Organization [facility] Address [address] [place] [address] Care Team Providers Care Avionics Manager Name Role Phone Sandro Sosa Primary Care Provider Allergies Active Allergy Reactions Criticality Noted Date [...] E) 200 unit capsule Take according to hdhe-lso-qewpny r package directions 0 0 8 Active levothyroxine (SYNTHROID) 112 mcg tablet Take one by mouth one time per day 90 3 9 Active dicyclomine (BENTYL) 20 mg tablet Take one by mouth one time per day 0 0 8 Active ascorbic acid, vitamin C, (VITAMIN C) 500 mg capsule, extended release CR capsule Take according to olad-xyg-iejvmd r package directions 0 0 8 Active b complex vitamins (B COMPLEX-VITAMIN B12) tablet Take according to wiqz-taw-yrossy r package directions 0 0 8 Active glucosamine-cho ndroit-vit C-Mn capsule Take according to rqhw-khj-btcnhj r package directions 0 0 8 Active calcium 500 mg tablet Take according to tfae-bzb-kikchr r package directions 0 0 8 Active [...] hips 80 mg OTHER Once 01/29/2017 Act lusi daniel Active Problems Problem Noted Date Diagnosed [...] on file Legal Sex Female 3:11 PM CARE TRANSITION COORDINATOR Gender Identity Not on file Sexual Orientation Not on file Last Filed Vital Signs Vital Sign Reading Time Taken Comments Blood Pressure 120/70 09/26/2017 11:02 AM CARE TRANSITION COORDINATOR Pulse 79 09/26/2017 11:02 AM CARE TRANSITION COORDINATOR Temperature 36.4 C (97.5 F) 09/26/2017 11:02 AM CARE TRANSITION COORDINATOR Respiratory Rate 16 09/26/2017 11:02 AM CARE TRANSITION COORDINATOR Oxygen Saturation 98% 09/26/2017 11:02 AM CARE TRANSITION COORDINATOR Inhaled Oxygen Concentration - - Weight 75.8 kg (167 lb) 09/26/2017 11:02 AM CARE TRANSITION COORDINATOR Height 160 cm (5' 3) 09/26/2017 11:02 AM CARE TRANSITION COORDINATOR Body Mass Index 29.58 09/26/2017 11:02 AM CARE TRANSITION COORDINATOR Plan of Treatment Not on file Insurance [employer] MEDICARE Care Teams Avionics Manager Relationship Specialty Start Date End Date Sandro Sosa [address] [place] [address] PCP - General 11/02/16
--- OUTSIDE RECORDS SUMMARY | 2025-06-16 16:11 | XMS_ITS | Encounter Summary ---
Author Organization [employer] Address [address] [place] [address] Care Team Providers Care Oxyhydrogen Welder Name Role Phone Unavailable Primary Care Provider Unavailabl e Encounter Details Date Type Department Care Team (Late st Contact Info) Description 11/09/1998 Outpatient Historical [facility] Social History Tobacco Use Types Packs/Day Years Used Date Smoking Tobacco: Never Assessed Comments Unknown Sex and Gender Information Value Date Recorded Sex Assigned at Not on file Legal Sex Female 3:41 AM IT SECURITY CONSULTANT Gender Identity Not on file Sexual Orientation Not on file documented as of this encounter Plan of Treatment Not on file documented as of this encounter Visit Diagnoses Not on filedocumented in this encounter
--- OUTSIDE RECORDS SUMMARY | 2025-06-16 16:11 | XMS_ITS | Encounter Summary ---
Author Organization [employer] Address [address] [place] [address] Care Team Providers Care Betting Agency Manager Name Role Phone Unavailable Primary Care Provider Unavailabl e Encounter Details Date Type Department Care Team (Late st Contact Info) Description 05/08/1999 Outpatient Historical [facility] Remberto Forde Social History Tobacco Use Types Packs/Day Years Used Date Smoking Tobacco: Never Assessed Comments Unknown Sex and Gender Information Value Date Recorded Sex Assigned at Not on file Legal Sex Female 3:[address] Gender Identity Not on file Sexual Orientation Not on file documented as of this encounter Plan of Treatment Not on file documented as of this encounter Visit Diagnoses Not on filedocumented in this encounter
--- OUTSIDE RECORDS SUMMARY | 2025-06-16 16:11 | XMS_ITS | Encounter Summary ---
Author Organization [employer] Address [address] [place] [address] Care Team Providers Care Bottling Room Worker Name Role Phone Unavailable Primary Care Provider Unavailabl e Encounter Details Date Type Department Care Team (Late st Contact Info) Description 11/13/1999 Outpatient Historical HIS [facility] HERZOG Reyna, Rodger Granados MD [address] [place] [phone] Social History Tobacco Use Types Packs/Day Years Used Date Smoking Tobacco: Never Assessed Comments Unknown Sex and Gender Information Value Date Recorded Sex Assigned at Not on file Legal Sex Female 3:41 AM ROLLWAY WORKER Gender Identity Not on file Sexual Orientation Not on file documented as of this encounter Plan of Treatment Not on file documented as of this encounter Visit Diagnoses Not on filedocumented in this encounter
--- OUTSIDE RECORDS SUMMARY | 2025-06-16 16:11 | XMS_ITS | Data Portability ---
Author Organization [place] - [facility], Main Office Address [address] [place] [address] Assessment No assessment recorded. Plan of Treatment Reminders Order Date Submit Date Provider Last Modified By Organization Details Last Modified Time Details Appointments None recorded . Lab lipid panel, serum [address] (Lab), [address] [place], [address], 09:51:06 lipid panel, serum 2024 025 [facility] (Lab), [address] [place], [address], 19:00:58 CMP, serum or plasma 2024 025 [facility] (Lab), [address] [place], [address], 5 19:01:05 unlisted lab - CBC study [address] (Lab), [address] [place], [address], 09:18:54 TSH, serum or plasma 2024 025 [facility] (Lab), [address] [place], [address], 19:32:25 T3, free, serum or plasma 2024 025 [facility] (Lab), [address] [place], [address], 19:35:22 T4, free, serum 2024 025 [facility] (Lab), [address] [place], [address], 19:35:17 CBC w/ auto diff 2024 025 [facility] (Lab), [address] [place], [address], 18:30:28 ferritin , serum or plasma 2024 025 [facility] (Lab), [address] [place], [address], 19:35:27 iron + total iron-bin ding capacity (TIBC), serum 2024 025 [facility] (Lab), [address] [place], [address], 19:00:39 Referral physical therapis t referral - Please call patient to schedule . 2024 025 [email or web address] [facility], [address] [place], [address], 09:50:05 Procedures None recorded . Surgeries None recorded . Imaging MAMMO, screenin g, digital, bilatera l - Please call patient to schedule . 2024 025 [facility] (One Call Scheduling), [address] [place], [address], 15:21:36 bone density - Please call patient to schedule . [address] (One Call Scheduling), [address] [place], [address], 5 14:09:54 Medication Orders Medrol (Doug) 4 mg tablets in a dose pack 2024 025 [facility] #63304, [address], [place], [place], [id number], 5 10:15:12 cycloben zaprine 5 mg tablet 2024 025 [facility] #38573, [address], [place], [place], [id number], 5 05:02:16 alendron ate 70 mg tablet [address] [facility]76561, [address] , [place], [place], [id number], 5 15:45:14 lorazepa m 0.5 mg tablet 2024 025 edna [facility] #90919, [address] , [place], [place], [id number], 5 09:38:57 levothyr oxine 75 mcg tablet [address] [facility] #60894, [address], [place], [place], [id number], 5 15:45:14 rosuvast atin 20 mg tablet [address] [facility]45477, [address] [place], [id number], 5 15:45:14 buspiron e 10 mg tablet 2024 025 [email or web address] [facility] #59870, [address] , [place], [place], [id number], 11:15:18 Patient TargetsNo targets recorded. Patient Instructions Encounter Date Encounter Id Patient Instructions Last Modified By Organization Details Last Modified Time 05/03/2025 [id number] Take medications as directed. Use modified exercised [...] x10'3 /uL 4.2-10 .8 low Not Available [facility] (Lab) [address] [place], [address], 10/14/2024 19:01:24 10/15/19 25 10/14/2024 CBC/C OMPLE TE BLD COUNT W/DIF F red blood cells 4.42 x10'6 /uL 3.80-5 .20 Not Available [facility] (Lab) [address] [place], [address], 10/14/2024 19:01:24 10/15/19 25 10/14/2024 CBC/C OMPLE TE BLD COUNT W/DIF F hemoglobin 15.4 g/dL 12.0-1 5.6 Not Available [facility] (Lab) [address] [place], [address], 10/14/2024 19:01:24 10/15/19 25 10/14/2024 CBC/C OMPLE TE BLD COUNT W/DIF F hematocrit 48.8 % 35.7-4 5.7 high Not Available [facility] (Lab) [address] [place], [address], 10/14/2024 19:01:24 10/15/19 25 10/14/2024 CBC/C OMPLE TE BLD COUNT W/DIF F mean red cell volume 110.4 fL 82.0-9 9.0 high Not Available [facility] (Lab) [address] [facility] [place], [address], 10/14/2024 19:01:24 10/15/19 25 10/14/2024 CBC/C OMPLE TE BLD COUNT W/DIF F mean red cell hemoglobin 34.8 pg 27.0-3 3.0 high Not Available [facility] (Lab) [address] [place], [address], 10/14/2024 19:01:24 10/15/19 25 10/14/2024 CBC/C OMPLE TE BLD COUNT W/DIF F mean RBC HGB concentratio n 31.6 g/dL 31.0-3 6.0 Not Available [facility] (Lab) [address] [place], [address], 10/14/2024 19:01:24 10/15/19 25 10/14/2024 CBC/C OMPLE TE BLD COUNT W/DIF F red cell distribution width 13.3 % 11.8-1 5.5 Not Available [facility] (Lab) [address] [place], [address], 10/14/2024 19:01:24 10/15/19 25 10/14/2024 CBC/C OMPLE TE BLD COUNT W/DIF F platelets 177 x10'3 /uL 150-40 0 Not Available [facility] (Lab) [address] [place], [address], 10/14/2024 19:01:24 10/15/19 25 10/14/2024 CBC/C OMPLE TE BLD COUNT W/DIF F mean platelet volume 10.1 fL 9.0-12 .4 Not Available [facility] (Lab) [address] [place], [address], 10/14/2024 19:01:24 10/15/19 25 10/14/2024 CBC/C OMPLE TE BLD COUNT W/DIF F neutrophils 52.1 % 39.0-7 2.0 Not Available [facility] (Lab) [address] [place], [address], 10/14/2024 19:01:24 10/15/19 25 10/14/2024 CBC/C OMPLE TE BLD COUNT W/DIF F lymphocytes 35.0 % 16.0-4 7.0 Not Available [facility] (Lab) [address] [place], [address], 10/14/2024 19:01:24 10/15/19 25 10/14/2024 CBC/C OMPLE TE BLD COUNT W/DIF F monocytes 7.3 % 5.0-12 .0 Not Available [facility] (Lab) [address] [place], [address], 10/14/2024 19:01:24 10/15/19 25 10/14/2024 CBC/C OMPLE TE BLD COUNT W/DIF F eosinophils 4.2 % 1.0-7. 0 Not Available [facility] (Lab) [address] [place], [address], 10/14/2024 19:01:24 10/15/19 25 10/14/2024 CBC/C OMPLE TE BLD COUNT W/DIF F basophils 1.1 % 0.0-2. 0 Not Available [facility] (Lab) [address] [place], [address], 10/14/2024 19:01:24 10/15/19 25 10/14/2024 CBC/C OMPLE TE BLD COUNT W/DIF F immature granulocytes 0.3 % 0.00-0 .50 Not Available [facility] (Lab) [address] [place], [address], 10/14/2024 19:01:24 10/15/19 25 10/14/2024 CBC/C OMPLE TE BLD COUNT W/DIF F neutrophils, absolute count 1.86 x10'3 /uL 1.5-8. 0 Not Available [facility] (Lab) [address] [place], [address], 10/14/2024 19:01:24 10/15/19 25 10/14/2024 CBC/C OMPLE TE BLD COUNT W/DIF F lymphocytes, absolute count 1.25 x10'3 /uL 1.07-3 .43 Not Available [facility] (Lab) [address] [place], [address], 10/14/2024 19:01:24 10/15/19 25 10/14/2024 CBC/C OMPLE TE BLD COUNT W/DIF F monocytes, absolute count 0.26 x10'3 /uL 0.29-0 .99 low Not Available [facility] (Lab) [address] [place], [address], 10/14/2024 19:01:24 10/15/19 25 10/14/2024 CBC/C OMPLE TE BLD COUNT W/DIF F eosinophils, absolute count 0.15 x10'3 /uL 0.02-0 .53 Not Available [facility] (Lab) [address] [place], [address], 10/14/2024 19:01:24 10/15/19 25 10/14/2024 CBC/C OMPLE TE BLD COUNT W/DIF F basophils, absolute count 0.04 x10'3 /uL 0.01-0 .08 Not Available [facility] (Lab) [address] [place], [address], 10/14/2024 19:01:24 03/12/20 25 10/14/2024 CBC/C OMPLE TE BLD COUNT W/DIF F immature granulocytes ,absolute 0.01 x10'3 /uL 0.00-0 .05 Not Available [facility] (Lab) [address] [place], [address], 10/14/2024 19:01:24 10/15/19 25 10/14/2024 CBC/C OMPLE TE BLD COUNT W/DIF F nucleated red blood cells 0.0 % -0 Not Available [facility] (Lab) [address] [place], [address], 10/14/2024 19:01:24 10/15/19 25 10/14/2024 CBC/C OMPLE TE BLD COUNT W/DIF F NRBC# 0.00 x10'3 /uL Not Available [facility] (Lab) [address] [place], [address], 10/14/2024 19:01:24 10/15/19 25 10/14/2024 CBC/C OMPLE TE BLD COUNT W/DIF F macro OCCASI ONAL Not Available [facility] (Lab) [address] [place], [address], 10/14/2024 19:01:24 10/15/19 25 10/14/2024 IRON/ TIBC PANEL total iron binding capacity 297 mcg/d L 265-47 5 Not Available [facility] (Lab) [address] [place], [address], 10/14/2024 19:21:07 10/15/19 25 10/14/2024 IRON/ TIBC PANEL % transferrin saturation 52 % 20-55 Not Available [facility] (Lab) [address] [place], [address], 10/14/2024 19:21:07 10/15/19 25 10/14/2024 IRON/ TIBC PANEL unsaturated iron bind capacity 143 mcg/d L 126-38 2 Not Available [facility] (Lab) [address] [place], [address], 10/14/2024 19:21:07 10/15/19 25 10/14/2024 IRON/ TIBC PANEL iron 154 mcg/d L 42-175 Not Available [facility] (Lab) [address] [place], [address], 10/14/2024 19:21:07 10/15/19 25 10/14/2024 LIPID PANEL cholesterol 270 mg/dL 140-19 9 high NIH AZUL NSUS RECOM MENDA TION FOR LAZ STERO L: ADULT CHILD LOW RISK: <200 <170 BORDE RLINE : <200- 239 ----- HIGH RISK: >240 >200 Not Available [facility] (Lab) [address] [place], [address], 10/14/2024 19:00:58 10/15/19 25 10/14/2024 LIPID PANEL triglyceride s 226 mg/dL 0-150 high NIH AZUL NSUS REPOR T RECOM MENDA TION FOR TRIGL YCERI GEORGE: ADULT CHILD LOW RISK: <150 ----- BODER LINE: 150-1 99 ----- HIGH RISK: >200 ----- Not Available [facility] (Lab) [address] [place], [address], 10/14/2024 19:00:58 10/15/19 25 10/14/2024 LIPID PANEL HDL cholesterol 65 mg/dL 40- Not Available [facility] (Lab) [address] [place], [address], 10/14/2024 19:00:58 10/15/19 25 10/14/2024 LIPID PANEL [...] WILL NOT BE REPOR BANDAR. Not Available [facility] (Lab) [address] [place], [address], 10/14/2024 19:00:58 10/15/19 25 10/14/2024 COMPR EHENS FRANKLIN METAB OLIC PANEL sodium 137 mmol/ L 137-14 5 Not Available [facility] (Lab) [address] [place], [address], 10/14/2024 19:01:05 10/15/19 25 10/14/2024 COMPR EHENS FRANKLIN METAB OLIC PANEL potassium 4.3 mmol/ L 3.5-5. 1 Not Available [facility] (Lab) [address] [place], [address], 10/14/2024 19:01:05 10/15/19 25 10/14/2024 COMPR EHENS FRANKLIN METAB OLIC PANEL chloride 106 mmol/ L 98-107 Not Available [facility] (Lab) [address] [place], [address], 10/14/2024 19:01:05 10/15/19 25 10/14/2024 COMPR EHENS FRANKLIN METAB OLIC PANEL carbon dioxide 30 mmol/ L 22-30 Not Available [facility] (Lab) [address] [place], [address], 10/14/2024 19:01:05 10/15/19 25 10/14/2024 COMPR EHENS FRANKLIN METAB OLIC PANEL anion gap 5.3 mmol/ L 14-22 low Not Available [facility] (Lab) [address] [place], [address], 10/14/2024 19:01:05 10/15/19 25 10/14/2024 COMPR EHENS FRANKLIN METAB OLIC PANEL glucose 69 mg/dL 70-99 low Not Available [facility] (Lab) [address] [place], [address], 10/14/2024 19:01:05 10/15/19 25 10/14/2024 COMPR EHENS FRANKLIN METAB OLIC PANEL BUN 10 mg/dL 8-19 Not Available [facility] (Lab) [address] [place], [address], 10/14/2024 19:01:05 10/15/19 25 10/14/2024 COMPR EHENS FRANKLIN METAB OLIC PANEL creatinine 0.96 mg/dL 0.66-1 .25 Not Available [facility] (Lab) [address] [place], [address], 10/14/2024 19:01:05 10/15/19 25 10/14/2024 COMPR EHENS FRANKLIN METAB OLIC PANEL GFR 57 Refer ence Range : [place] ge GFR Healt hy Adult : >60 [...] or ethni c subgr oups, such as [facility] nics. Outsi de the valid ated [...] calcu lator is avail able on the [facility] websi te: [email or web address] :[email or web address] lopes/pr ofess ional s/kdo qi/gf r_cal culat or Not Available [facility] (Lab) [address] [place], [address], 10/14/2024 19:01:05 10/15/19 25 10/14/2024 COMPR EHENS FRANKLIN METAB OLIC PANEL alkaline phosphatase 71 U/L 38-126 Not Available [facility] (Lab) [address] [place], [address], 10/14/2024 19:01:05 10/15/19 25 10/14/2024 COMPR EHENS FRANKLIN METAB OLIC PANEL alanine aminotransfe rase 36 U/L 0-35 high Not Available [facility] (Lab) [address] [place], [address], 10/14/2024 19:01:05 10/15/19 25 10/14/2024 COMPR EHENS FRANKLIN METAB OLIC PANEL aspartate aminotransfe rase 58 U/L 15-37 high Not Available [facility] (Lab) [address] [place], [address], 10/14/2024 19:01:05 10/15/19 25 10/14/2024 COMPR EHENS FRANKLIN METAB OLIC PANEL bilirubin, total 0.70 mg/dL 0.20-1 .30 Not Available [facility] (Lab) [address] [place], [address], 10/14/2024 19:01:05 10/15/19 25 10/14/2024 COMPR EHENS FRANKLIN METAB OLIC PANEL calcium 9.7 mg/dL 8.4-10 .2 Not Available [facility] (Lab) [address] [place], [address], 10/14/2024 19:01:05 10/15/19 25 10/14/2024 COMPR EHENS FRANKLIN METAB OLIC PANEL total protein 6.5 g/dL 6.3-8. 2 Not Available [facility] (Lab) [address] [place], [address], 10/14/2024 19:01:05 10/15/19 25 10/14/2024 COMPR EHENS FRANKLIN METAB OLIC PANEL albumin 4.2 g/dL 3.0-4. 4 Not Available [facility] (Lab) [address] [place], [address], 10/14/2024 19:01:05 10/15/19 25 10/14/2024 COMPR EHENS FRANKLIN METAB OLIC PANEL globulin 2.3 g/dL 2.6-4. 2 low Not Available [facility] (Lab) [address] [place], [address], 10/14/2024 19:01:05 10/15/19 25 10/14/2024 COMPR EHENS FRANKLIN METAB OLIC PANEL A/G ratio 1.8 ratio 1.0-2. 0 Not Available [facility] (Lab) [address] [place], [address], 10/14/2024 19:01:05 10/15/19 25 10/14/2024 TSH thyroid-stim ulating hormone 22.000 uIU/m L 0.465- 4.680 high Not Available [facility] (Lab) [address] [place], [address], 10/14/2024 19:32:25 10/15/19 25 10/14/2024 T4 FREE free T4 0.85 NG/dL 0.78-2 .19 Not Available [facility] (Lab) [address] [place], [address], 10/14/2024 19:35:17 10/15/19 25 10/14/2024 T3 FREE free T3 2.86 pg/mL 2.77-5 .27 Not Available [facility] (Lab) [address] [place], [address], 10/14/2024 19:35:22 10/15/19 25 10/14/2024 JAZMINE TIN ferritin 80 NG/mL 11.1-2 64 Not Available [facility] (Lab) [address] [place], [address], 10/14/2024 19:35:27 01/19/20 25 01/18/2025 LIPID PANEL cholesterol 97 mg/dL 140-19 9 low NIH AZUL NSUS RECOM MENDA TION FOR LAZ STERO L: ADULT CHILD LOW RISK: <200 <170 BORDE RLINE : <200- 239 ----- HIGH RISK: >240 >200 Not Available [facility] (Lab) [address] [place], [address], 01/18/2025 15:44:51 01/19/20 25 01/18/2025 LIPID PANEL triglyceride s 139 mg/dL 0-150 NIH AZUL NSUS REPOR T RECOM MENDA TION FOR TRIGL YCERI GEORGE: ADULT CHILD LOW RISK: <150 ----- BODER LINE: 150-1 99 ----- HIGH RISK: >200 ----- Not Available [facility] (Lab) [address] [place], [address], 01/18/2025 15:44:51 01/19/20 25 01/18/2025 LIPID PANEL HDL cholesterol 42 mg/dL 40- Not Available [facility] (Lab) [address] [place], [address], 01/18/2025 15:44:51 01/19/20 25 01/18/2025 LIPID PANEL [...] WILL NOT BE REPOR BANDAR. Not Available [facility] (Lab) [address] [place], [address], 01/18/2025 15:44:51 01/19/20 25 01/18/2025 TSH thyroid-stim ulating hormone <0.015 uIU/m L 0.465- 4.680 low Not Available [facility] (Lab) [address] [place], [address], 01/18/2025 15:57:33 03/18/20 25 03/18/2025 TSH thyroid-stim ulating hormone <0.015 uIU/m L 0.465- 4.680 low Not Available [facility] (Lab) [address] [place], [address], 03/18/2025 16:17:32 10/17/19 25 10/16/2024 DEXA, axial skele ton [facility] [address] [place] [address] [phone] Patien t Name: KASEY WALKER I Access ion #: [id number] Sex: F : 1949 5 Locati [...] e of -2.6. Page 1 of 2 [facility] Shirley t Name: KASEY WALKER I Access ion #: [id number] Sex: F : 1949 5 Exam [...] 1:17 PM (CT) Page 2 of [address] (Imaging) [address] [place], [address], 04/07/2025 14:24:56 10/20/19 25 10/16/2024 scree ryan breas t agustina, bilat [facility] [address] [facility] [place] [address] Shirley bee Name: KASEY WALKER I Access ion #: [id number] Sex: F : 1949 5 Locati [...] entire ly fatty. Page 1 of 3 [facility] Shirley bee Name: KASEY WALKER I Access ion #: [id number] Sex: F : 1949 5 Exam [...] ly to [facility] er. A negati ve mammog jose [...] 10:34 AM (CT) Page 2 of 3 [facility] Shirley bee Name: KASEY WALKER I Access ion #: [id number] Sex: F : 1949 5 Exam Date: 9:52 AM Exam Name: MG ITZEL BREAST AGUSTINA BILAT Admitt ing Diagno sis(es ): Dictat ed by: Mehdi calhoun MD DD: 10:34 AM (CT) DT: 10:34 AM (CT) Page 3 of 3 [facility] [place] [address] (Imaging) [address] [place], [address], 04/07/2025 14:24:56 10/28/19 25 10/16/2024 barbara bee agustina, bilat [facility] [address], [place] [address] [phone] Shirley bee Name: KASEY WALKER I Access ion #: [id number] Sex: F : 1949 5 Locati [...] Mehdi calhoun MD Page 1 of 3 [facility] Shirley bee Name: KASEY WALKER I Access ion #: [id number] Sex: F : 1949 5 Exam Date: 9:52 AM Exam Name: MG ROBBINS BREAST AGUSTINA BILAT Admitt ing Diagno sis(es ): DD: 1:37 PM (CT) DT: 1:37 PM (CT) Report _ID: [id number] EXAM: MG ROBBINS BREAST AGUSTINA BILAT HISTOR [...] tion of focal Page 2 of 3 [facility] Shirley bee Name: [facility] KASEY WORKMAN I Access ion #: [id number] Sex: F : 1949 5 Exam [...] ly to [facility]. A negati ve mammog jose [...] 10:34 AM (CT) Page 3 of [address] (Imaging) [address] [place], [address], 04/07/2025 14:24:56 10/28/1910/16/2024 MAMMO , scree ryan, digit al, bilat eral No observ ation record ed. [address] [place], [address], 04/07/2025 14:24:56 Result Notes Documentation Provider Name and Address Organization Details Recorded Time Dexa, Axial Skeleton : [facility] [address] [place], [place] [id number] Patient Name: KASEY SHERMAN I Sex: F : 1950 Location: [facility] Attending Physician: MONIK COHEN Ordering Physician: MONIK [...] T-score of -2.6. Page 1 of 2 [facility] Patient Name: KASEY SHERMAN I Sex: F : 1950 [id number] Exam Date: 10/16/2024 9:52 AM Exam Name: [...] 2 of 2 Monik Cohen MD [address] [place], [place], [address], [employer] 04/07/2025 14:24:56 Problems Name Problem SNOMED Code Status Onset Date Resolution Date Notes Provider Name and Address Organization Details Recorded Time Hypothyroid ism 37147762 Active 2024 Carolynn Miranda LPN null, [employer] 5 09:43:24 Hyperlipide adriana 29895217 Active 2024 Monik Cohen MD [address] [place], [place], [address], [employer] 5 16:28:40 Gastric ulcer 875770540 Active 2024 Monik Cohen MD [address], [place], [place], [address], [facility] [employer] [facility] 16:29:38 Rheumatoid arthritis 06916681 Active 2024 Monik Cohen MD [address], [address], [address], [facility] [employer] [facility] 16:29:46 Hemorrhoids 98909972 Active 2024 Monik Cohen MD [address], [place] [address], [place], [address], [facility] [employer] [facility] 16:30:13 Iron deficiency anemia 15766917 Active 2024 Monik Cohen MD [address], [place] [address], [place], [address], [facility] [employer] [facility] [employer] [facility] 16:30:48 Anxiety 61255985 Active 2024 Monik Cohen MD [address] [facility], [place] [address], [place], [address], [facility] [employer] [facility] 16:35:20 Osteoporosi s 05811439 Active 2024 Shellie Murillo MA null, [facility] [employer] [facility] 16:19:34 Bilateral sciatica 0113418127866 9103 Active 2024 CARLITOS Doran [address] [facility], [place] [address], [place], [address], [facility] [employer] [facility] 09:45:21 Problem Notes None recorded. Procedures Surgical History Date Name Laterality Status Provider Name and Address Organization Details Recorded Time Total hysterectomy completed Irina Sloan [facility] [employer] [facility] 10/12/2024 16:10:32 Gastric bypass for obesity completed Irina Sloan [facility] [employer] [facility] 10/12/2024 16:10:41 cholecystectomy completed Irina Sloan [facility] [employer] [facility] 10/12/2024 16:10:52 other completed Irina Sloan [facility] [employer] [facility] 10/12/2024 16:11:28 Imaging Results None recorded. Procedure Notes None recorded. Medical Equipment None Reported. Allergies Allergen ID Allergen Name Allergen Category Reaction Reaction Severity Criticality Documentation Date Start Date Code Code System Note Provider Name and Address Organization Details Recorded Time 15430 Motrin medicatio n Not available Not available Not available 10/12/202456809 8 RxNorm Irina Mirlande russo, RMA null, [facility] [employer] [facility] 5 16:01:15 81015 Tylenol medicatio n Not available Not available Not available 10/12/202411693 3 RxNorm fever triston/b kike Cohen MD [address] [facility], [facility] [address], [place], [address] [place] [address] [employer] [facility] [employer] [facility] 16:38:26 39827 buspirone medicatio n dizziness Not available [facility] 11/03/2024 1827 RxNorm Carolynn Miranda LPN null, [facility] [employer] [facility] 11:16:03 Medications Name Sig Start Date Stop [...] Address Organization Details Last Updated DateTime 5 [address].0 1 g 97.5 [degF] 23.8 kg/m2 157.48 cm 83 /min 98 % 98 % 134/60 mm[Hg] JACKSON Villavicencio [facility] [employer] [facility] 5 16:00:36 Date Recorded Body height Body mass index (BMI) Body weight Body temperature Heart rate Oxygen saturation Oxygen saturation in Arterial blood by Pulse oximetry Systolic And Diastolic Provider Name and Address Organization Details Last Updated DateTime 5 157.48 cm 21 kg/m2 96235.1 2 g 97.4 [degF] 81 /min 97 % 97 % 126/60 mm[Hg] JACKSON Villavicencio [place] [employer] [facility] 5 14:09:15 Date Recorded Body height Body mass index (BMI) Body weight Body temperature Oxygen saturation Oxygen saturation in Arterial blood by Pulse oximetry Heart rate Systolic And Diastolic Provider Name and Address Organization Details Last Updated DateTime 5 157.48 cm 20.4 kg/m2 95990.1 9 g 97.2 [degF] 97 % 97 % 98 /min 118/72 mm[Hg] Socorro live [facility] [employer] [facility] 5 09:41:21 Social History Question Answer Notes LastModified by Organization Details LastModified Time Tobacco Smoking Status Former Smoker JACKSON [place] [facility] [place] [employer] 10/12/2024 16:07:26 Do You Have An Advance [...] Or The Highest Degree You Have Received? [id number] Information not available 10/12/2024 Have There Been [...] anxious, or unable to sleep at night)? [id number] Information not available 10/12/2024 Do you have [...] high-dose, trivalent, PF 05/07/2017 completed Not Available [facility] 2024 09:25:22 COVID-19, mRNA, LNP-S, PF, 30 mcg/0.3 mL dose 10/04/2020 completed Not Available [facility] 5 09:25:22 COVID-19, mRNA, LNP-S, PF, 30 mcg/0.3 mL dose 10/29/2020 completed Not Available [facility] 5 09:25:22 COVID-19, mRNA, LNP-S, PF, 30 mcg/0.3 mL dose 05/17/2021 completed Not Available [facility] 5 09:25:22 Influenza, high-dose, quadrivalent, PF 06/02/2021 completed Not Available [facility] 5 09:25:22 COVID-19, mRNA, LNP-S, PF, 30 mcg/0.3 mL dose, cheri-sucrose 11/03/2021 completed Not Available [facility] 025 09:25:22 Influenza, high-dose, quadrivalent, PF 05/14/2022 completed Not Available [facility] 5 09:25:22 COVID-19, mRNA, LNP-S, bivalent, PF, 30 mcg/0.3 mL dose 05/28/2022 completed Not Available [facility] 5 09:25:22 COVID-19, mRNA, LNP-S, PF, cheri-sucrose, 30 mcg/0.3 mL 05/02/2023 completed Not Available [facility] 2024 09:25:22 Influenza, adjuvanted, quadrivalent, PF 05/17/2023 completed Not Available [facility] 09:25:22 COVID-19, mRNA, LNP-S, PF, cheri-sucrose, 30 mcg/0.3 mL 04/02/2024 completed Not Available [facility] 2024 09:25:22 Influenza, adjuvanted, trivalent, PF 05/19/2024 completed Not Available [facility] 2024 09:25:22 COVID-19, mRNA, LNP-S, PF, cheri-sucrose, 30 mcg/0.3 mL 04/19/2025 completed Not Available [facility] 2024 09:25:22 Past Encounters Encounter ID Performer Location Encounter Start Date Encounter Closed Date Diagnosis/Indication Diagnosis SNOMED-CT Code Diagnosis ICD10 Code Diagnosis IMO Codes Diagnosis Note [id number] Monik Cohen MD [facility] Internal [facility] [address] [place] [address] 10/12/2024 15:50:21 10/12/2024 16:40:08 Adult health examination 223889786 Z00.00 Colonoscop y- 10 yrs ago- NL, dueMammogr am- 2022- NLDEXA- Been a whilePneum ovax- Has had them bothPrevna r- Has had them bothShingl es- Has had them bothFLU- 4COVID- Up to date Hypothyroidism 32429992 E03.9 Hyperlipidemia 71540925 E78.5 labs and decide about meds Gastric ulcer 010050457 K25.9 no flare ups Rheumatoid arthritis 698 88827 M06.9 sees rheumatolo gist Hemorrhoids 89073371 K64 .9 stool softner Iron defic iency anemia 92351502 D50.9 Anxiety 66899712 F41.9 try Buspirone Screening mammography 24 912599 Z12.31 Screening for osteoporosis 491999977 Z13.820 Postmenopausal state 764 83325 Z78.0 [id number] Monik Cohen MD [facility] [address] [place] [address] 04/07/2025 14:01:12 04/07/2025 14:47:11 Adult health examination 608923329 Z00.00 Colonoscop y- 10 yrs ago- NL, dueMammogr am- 10/16/24DEX A- 10/16/24Pne umovax- Has had them bothPrevna r- Has had them bothShingl es- Has had them bothFLU- OVID- Up to date Hypothyroidism 54999859 E03.9 Hyperlipidemia 78840628 E78.5 started on meds, check labs in 2 months Gastric ulcer 716705418 K25.9 no flare ups Rheumatoid arthritis 698 03279 M06.9 sees rheumatolo gist Hemorrhoids 79392497 K64 .9 stool softner Iron defic iency anemia 52436558 D50.9 can't take iron Anxiety 04418628 F41.9 getting worse due to family problems, try lorazepam prn15 tabs can last more than a month Osteoporosis 24511349 M8 1.0 [id number] Monik Cohen MD [facility] [address] [place] [address] 05/03/2025 09:23:12 05/03/2025 11:30:12 Bilateral sciatica 1050546185 0111567 M54.31 M54.32 [id number] Health Concerns Section Related Observation LastModified by Organization Detai ls LastModified Time None Recorded Concern Status LastModified by Organization Details LastModified Time None Recorded Advance Directives Directive N: Payers Insurance Date Sequence Insurance Name Policy Number Policy Cobb Covered Member ID Cobb Member ID Guarantor Name 05/18/2025 1 [employer] (MEDICARE REPLACEMENT/ ADVANTAGE - PPO) Kasey Sherman [id number] Kasey Sherman Notes Date Note Type Note Provider Name and Address Organization Details Recorded Time 5 text/html Pt is a 74 y/o here today to establish care. Her Marino is also a ptPrevious Dr [place] [employer] ) Hypothyroidism- On medsMeds- Levothyroxine 50 mcg daily Rheumatoid arthritis- [facility] Oste[facility]rit[facility] , handsMeds- Methotrexate sodium 2.5mg [...] low dose meds Monik Cohen MD [address], [place], [address], [employer] 10/12/2024 16:39:34 5 text/html she is here for f/uHer Marino is also a ptUnder a lot of stress with her having Chemo and shes lost 15lbsPT IS NOT FASTING ( [employer] ) Hypothyroidism- On medsMeds- Levothyroxine 75 mcg daily Rheumatoid arthritis- Sees Dr. Mary Jane Leal, [facility] has Osteoarthritisknees , handsMeds- Methotrexate sodium 2.5mg [...] low dose meds Monik Cohen MD [address], [place], [address], [employer] 04/07/2025 14:34:53 5 text/html ROS as noted [...] or fall, or n/v/d at this time. Saarh Garrido, MANAGED CARE LIAISON-C [address], [place], [address], [facility] [place] [employer] [facility] 05/03/2025 10:15:28 OBGyn Episode No OBEpisode recorded.
--- OUTSIDE RECORDS SUMMARY | 2025-06-16 16:12 | XMS_ITS | Encounter Summary ---
Author Organization [employer] Address 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
--- OUTSIDE RECORDS SUMMARY | 2025-06-16 16:12 | XMS_ITS | Clinical Summary ---
Author Organization [employer] Address [address] 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
--- OUTSIDE RECORDS SUMMARY | 2025-06-16 16:12 | XMS_ITS | Encounter Summary ---
Author Organization [employer] Address 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
--- OUTSIDE RECORDS SUMMARY | 2025-06-16 16:12 | XMS_ITS | Encounter Summary ---
Author Organization [employer] Address [address] [place] [address] Care Team Providers Care Lining Parts Sewer Name Role Phone Unavailable Primary Care Provider Unavailabl e Encounter Details Date Type Department Care Team (Late st Contact Info) Description 02/07/2000 Outpatient Historical [facility] DR. 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
--- OUTSIDE RECORDS SUMMARY | 2025-06-16 16:12 | XMS_ITS | Encounter Summary ---
Author Organization [employer] Address [address] [place] [address] Care Team Providers Care Concrete Finishing Machine Operator Name Role Phone Unavailable Primary Care Provider Unavailabl e Encounter Details Date Type Department Care Team (Late st Contact Info) Description 03/13/2000 Outpatient Historical [facility] DR. 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
--- OUTSIDE RECORDS SUMMARY | 2025-06-16 16:12 | XMS_ITS | Patient Health Record ---
Author Organization [facility] Address [address] [place] [address] Care Team Providers Care Program Engagement Director Name Role Phone Livier Gutierrez Unavailable [phone] Reason For Referral No Information Medications Medication [...] Risk Notes Problem Disorder of thyroid gland (15387626) Disorder of thyroid, unspecified (E07.9) Active confirmed Problem Rheumatoid arthritis (73815946) Rheumatoid arthritis, unspecified (M06.9) Active confirmed Problem Fibromyalgia (731448135) Fibromyalgia (M79.7) Active confirmed Plan Of Treatment No Information Insurance Providers Payer Name Payer Address Payer Phone Subscriber Number Group Number Insured Name Patient Relationship to Insured Coverage Start Date Coverage End Date [employer] [address] [address] [place] [address] [id number] Kasey Rodriguez Self - patient is the insured Medical (General) History Surgical History Surgery Date(Month/Year) Hand surgery; 2017-12-25 Gallbladder removal; 2017-12-25 Hysterectomy; 2017-12-25 tonsilectomy; 2017-12-25
--- NOTE | 2025-06-16 17:04 | ED.URI ---
HPI - URI/Sore Throat General Chief Complaint: Upper Respiratory Infection <Alexandra Craig PA-C - Last Filed: 06/17/25 09:17> Stated Complaint: i have a virus, deathly sick <WILEY Philippe Last Filed: 06/17/25 09:17> Time Seen by Provider: 06/16/25 17:04 <WILEY Phliippe Last Filed: 06/17/25 09:17> Focused HPI: This is a 75 year old female that presents to the ER for viral symptoms. Reports she has not been able to eat, drink. Reports subjective fevers, chills, vomiting, cough, lower abdominal pain. Ongoing for a couple of weeks. GENERAL: Elderly, well-nourished, and in no acute distress. HEAD: Normocephalic, atraumatic. CHEST: Clear to auscultation. ?No respiratory distress. HEART: Regular rate and rhythm.? NEURO: ?Alert and oriented x3. Patient screened in triage and initial orders placed.? ?Additional care and disposition to be based upon?diagnostic testing and treatment. <WILEY Philippe Last Filed: 06/17/25 09:17> Focused HPI: This is a 75 year old female that presents to the ER for viral symptoms. Reports she has not been able to eat, drink. Reports subjective fevers, chills, vomiting, cough, lower abdominal pain. Ongoing for a couple of weeks. GENERAL: Elderly, well-nourished, and in no acute distress. HEAD: Normocephalic, atraumatic. CHEST: Clear to auscultation. ?No respiratory distress. HEART: Regular rate and rhythm.? NEURO: ?Alert and oriented x3. Patient screened in triage and initial orders placed.? ?Additional care and disposition to be based upon?diagnostic testing and treatment. <WILEY Akins Last Filed: 06/17/25 00:48> Source: patient <WILEY Akins Last Filed: 06/17/25 00:48> Mode of arrival: ambulatory <WILEY Akins Last Filed: 06/17/25 00:48> Limitations: no limitations <Sarah Sharp PA-C - Last Filed: 06/17/25 00:48> History of Present Illness HPI Narrative: Agree with above HPI. Denies diarrhea, hematemesis, rectal bleeding. <Sarah Sharp PA-C - Last Filed: 06/17/25 00:48> Related Data Home Medications: Home Medications ?Medication ?Instructions ?Recorded ?Confirmed ?Last Taken ?Type cholecalciferol (vitamin D3) 125 10,000 unit PO WEEKLY 02/26/22 06/17/25 06/15/25 History mcg (5,000 unit) capsule calcium carbonate 500 mg PO DAILY 03/05/23 06/17/25 Unknown History ascorbic acid (vitamin C) 1,000 mg 1,000 mg PO TID 06/17/25 06/17/25 Unknown History tablet,extended release (C Complex) potassium 99 mg tablet 198 mg PO TID PRN MUSCLE SPASMS 06/17/25 06/17/25 Unknown History vitamin E 268 mg (400 unit) capsule 1,072 mg PO DAILY 06/17/25 06/17/25 Unknown History <Alexandra Craig PA-C - Last Filed: 06/17/25 09:17> Allergies/Adverse Reactions: Allergies Allergy/AdvReac Type Severity Reaction Status Date / Time acetaminophen Allergy Unknown Unknown Verified 06/17/25 02:02 codeine Allergy Unknown Unknown Verified 06/17/25 02:02 ibuprofen Allergy Unknown unknown Verified 06/17/25 02:02 pregabalin Allergy Unknown Unknown Verified 06/17/25 02:02 quinine Allergy Unknown unknown Verified 06/17/25 02:02 All antidepressants Allergy Unknown Unknown Uncoded 12/02/23 11:15 <Alexandra Craig PA-C - Last Filed: 06/17/25 09:17> Review of Systems Review of Systems: All systems reviewed & are unremarkable except as noted in HPI. <Sarah Sharp PA-C - Last Filed: 06/17/25 00:48> All systems reviewed & are unremarkable except as noted in HPI and below <Sarah Sharp PA-C - Last Filed: 06/17/25 00:48> PMFSH Past Medical History Medical History: Medical History Hypothyroidism (acquired) History of gastric ulcer (~09/2021) Age related osteoporosis Environmental allergies Chronic low back pain Rheumatoid arthritis with rheumatoid factor of multiple sites without organ or systems involvement Cataract Dyslipidemia Anemia Anxiety Insomnia Unspecified osteoarthritis, unspecified site Thyroid disorder IBS (irritable bowel syndrome) <Alexandra Craig PA-C - Last Filed: 06/17/25 09:17> Surgical History Surgical History: Surgical History History of cholecystectomy 1978 History of sleeve gastrectomy 1976 History of eye surgery implants-2018 History of thumb surgery bi-lateral - age med 30's History of total hysterectomy 1976 History of cataract surgery Left-04/07/2019 Right-04/22/2019 <Alexandra Craig PA-C - Last Filed: 06/17/25 09:17> Family History Family History: Family History Mother Acute myocardial infarction Rheumatoid arthritis Heart disease Thyroid disorder Father Heart disease Sibling Thyroid disorder <Alexandra Craig PA-C - Last Filed: 06/17/25 09:17> Social History Social History: Social History Smoking status: Former smoker Tobacco type: cigarettes Second hand tobacco smoke exposure: No Smoking end date: 08/05/83 Alcohol intake: former Substance use: current Substance use type: marijuana Lack of Transportation: No Lack of Food: Never True Current Housing: I Have Housing Concerned About Future Housing: No Difficulty Paying Gas/Electric Bills: No Difficulty Paying for Meds: No Currently Unemployed: No Education: High School Diploma/GED Difficulty w/ Childcare or Family Care: No Spiritual care concerns: No <Alexandra Craig PA-C - Last Filed: 06/17/25 09:17> Exam Narrative: GENERAL: Elderly, frail/thin, ill appearing, in no acute distress. HEAD: Normocephalic, atraumatic. RESPIRATORY: Airway patent, respirations nonlabored. Clear to auscultation bilaterally, no rales, rhonchi, wheezing. CARDIOVASCULAR: Regular rate and rhythm without murmurs, rubs, or gallops. ABDOMINAL: Soft, mild diffuse tenderness throughout abdomen, no rebound, nondistended. Normoactive BS. MUSCULOSKELETAL: Moves all extremities. No gross deformities. SKIN: Warm, dry, normal color. NEURO: A&O X3. Speech clear. Cranial nerves II-XII grossly intact. Steady gait. No ataxic movements. PSYCHIATRIC: Appropriate mood and affect. Normal interaction. 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 Chart reviewed asynchronously. I was available for consultation while patient was in the emergency department but otherwise did not personally examine them and was not directly involved in their care. <Yessica Mueller MD - Last Filed: 06/17/25 18:00> Vital Signs Vital signs: Vital Signs Temperature 98.8 F 06/16/25 15:40 Pulse Rate 70 06/16/25 15:40 Respiratory Rate 14 06/16/25 15:40 Blood Pressure 141/62 H 06/16/25 15:40 Pulse Oximetry 98 06/16/25 15:40 Oxygen Delivery Room Air 06/16/25 15:40 Temperature 97.6 F 06/17/25 15:58 Pulse Rate 87 06/17/25 16:00 Respiratory Rate 16 06/17/25 15:58 Blood Pressure 125/63 06/17/25 15:58 Pulse Oximetry 100 06/17/25 15:58 Oxygen Delivery Room Air 06/17/25 09:52 <Alexandra Craig PA-C - Last Filed: 06/17/25 09:17> Vital Signs Temperature 98.8 F 06/16/25 15:40 Pulse Rate 70 06/16/25 15:40 Respiratory Rate 14 06/16/25 15:40 Blood Pressure 141/62 H 06/16/25 15:40 Pulse Oximetry 98 06/16/25 15:40 Oxygen Delivery Room Air 06/16/25 15:40 Temperature 97.6 F 06/17/25 15:58 Pulse Rate 87 06/17/25 16:00 Respiratory Rate 16 06/17/25 15:58 Blood Pressure 125/63 06/17/25 15:58 Pulse Oximetry 100 06/17/25 15:58 Oxygen Delivery Room Air 06/17/25 09:52 <Sarah Sharp PA-C - Last Filed: 06/17/25 00:48> Vital Signs Temperature 98.8 F 06/16/25 15:40 Pulse Rate 70 06/16/25 15:40 Respiratory Rate 14 06/16/25 15:40 Blood Pressure 141/62 H 06/16/25 15:40 Pulse Oximetry 98 06/16/25 15:40 Oxygen Delivery Room Air 06/16/25 15:40 Temperature 97.6 F 06/17/25 15:58 Pulse Rate 87 06/17/25 16:00 Respiratory Rate 16 06/17/25 15:58 Blood Pressure 125/63 06/17/25 15:58 Pulse Oximetry 100 06/17/25 15:58 Oxygen Delivery Room Air 06/17/25 09:52 <Yessica Mueller MD - Last Filed: 06/17/25 18:00> MDM - URI/Sore Throat MDM Narrative Medical decision making narrative: Patient presented to ED with several week history of nausea, vomiting, decreased p.o. intake, weakness. Vital signs are stable upon arrival. Patient is in no acute distress. Does appear somewhat weak and frail. Fluids initiated. Laboratory studies with white blood cell count of 9.3. Neutrophil predominance noted on differential of 88%. 6% bands. H&H is stable. platelets slightly low at 128. CMP with hypokalemia at 2.0. Patient reports history of issues with hypokalemia in the past. States she is supposed to be on potassium supplementation, but has not been able to take this over the last few days due to vomiting. 40meq Oral and IV replacement ordered. Magnesium within normal range. Stable kidney function. Total protein and albumin low, likely related to acute dehydration. Fluids are ongoing. Viral swabs are negative. UA concerning for infection, positive nitrate, 3+ leuk esterase, greater than 100 WBC, 4+ urine bacteria. Sent for culture. Will treat. Chest x-ray showing left lower lobe pneumonia. Blood cultures obtained. Rocephin and azithromycin started to cover for pneumonia and UTI. CT scan of abdomen / pelvis was obtained and w/o acute intraabdominal pathology. Does show large R gluteal muscle hematoma. In discussing with patient, she did have a fall a week and half ago on 06/05. Had pain to her right hip at that time. She was seen in the ED. X-ray did not show any evidence of fracture. On exam, she does have large area of swelling/bruising to gluteal region, right lateral hip joint, bruising extending down posterior right thigh. It is somewhat firm, but not extremely taut. Low suspicion for compartment syndrome. H&H is stable. Patient is not on anticoagulation. Discussed case with hospitalist, Dr. Antonio, accepted patient for admission pending repeat K level. Recommended consult for gen surg regarding hematoma. Discussed case with Dr. Garber, gen surg, will consult. Patient did develop fever throughout ED stay and became tachycardic. Meeting criteria for sepsis. Has received 30cc/kg fluid bolus Repeat potassium improved to 2.6. Re-discussed case with Dr. Antonio, hospitalist, accepted patient for admission to IMU. Keep maintenance fluids going, LR 150cc/hr. Patient/family in agreement with plan and need for admission. <Sarah Sharp PA-C - Last Filed: 06/17/25 00:48> Medical Records Attestation: I reviewed the patient's medical records. <Sarah Sharp PA-C - Last Filed: 06/17/25 00:48> Lab Data Attestation: I reviewed the patient's lab results. <Sarah Sharp PA-C - Last Filed: 06/17/25 00:48> Result diagrams: 06/17/25 06:28 06/17/25 06:28 <Alexandra Craig PA-C - Last Filed: 06/17/25 09:17> Labs: Lab Results 06/16/25 06/16/25 06/16/25 Range/Units 18:36 21:09 23:00 WBC 9.3 (4.5-10.0) K/mm3 RBC 3.60 L (4.2-5.4) M/mm3 Hgb 11.8 L (12.0-15.0) g/dL Hct 35.5 L (37.0-47.0) % MCV 98.6 (80-100) fl MCH 32.8 (26-34) pg MCHC 33.2 (32-36) g/dl RDW 16.2 H (11.5-14.5) % Plt Count 128 L (150-375) k/mm3 MPV 9.7 (7.4-10.4) fl Immature Gran % (Auto) Not Reportable Neut % (Auto) Not Reportable Lymph % (Auto) Not Reportable [place] % (Auto) Not Reportable Eos % (Auto) Not Reportable Baso % (Auto) Not Reportable Lymph # (Auto) Not Reportable [place] # (Auto) Not Reportable Eos # (Auto) Not Reportable Baso # (Auto) Not Reportable Abs Immat Gran (auto) Not Reportable Absolute Neuts (auto) Not Reportable Absolute Nucleated RBC Not Reportable Total Counted 100 Neutrophils % (Manual) 88 H (46-73) % Band Neutrophils % 6 (0-6) % Lymphocytes % (Manual) 3.0 L (18-44) % Monocytes % (Manual) 3 (3-9) % Nucleated RBC % Not Reportable Abs Neuts (Manual) 8.74 H (1.3-6.7) K/mm3 Abs Lymphs (Manual) 0.27 L (1.1-4.5) K/mm3 Abs Monocytes (Manual) 0.27 (0.1-0.90) K/mm3 Platelet Estimate Decreased (Adequate) Anisocytosis 2+ Schistocytes None seen PT 12.9 (11.1-14.7) Seconds INR 1.0 APTT 29.4 (22.3-36.8) Seconds Sodium 134 L 136 L (137-145) mmol/L Potassium 2.0 L* 2.6 L* (3.4-5.0) mmol/L Chloride 99 104 (98-107) mmol/L Carbon Dioxide 32 H 25 (22-30) mmol/L Anion Gap 3 L 7 (4-12) mmol/L BUN 11 10 (7-17) mg/dL Creatinine 0.99 0.95 (0.7-1.0) mg/dL Estim Creat Clear Calc Not Reportable Not Reportable Estimated GFR 54 L 57 L (59 - ) Glucose 121 H 77 (65-110) mg/dL Lactic Acid 2.4 H 4.2 H* (0.7-2.0) mmol/L Calcium 8.6 8.1 L (8.4-10.2) mg/dL Magnesium 2.5 H (1.6-2.3) mg/dL Total Bilirubin 1.4 H (0.2-1.3) mg/dL AST 54 H (14-36) U/L ALT 33 (6-35) U/L Alkaline Phosphatase 119 (38-126) U/L Total Creatine Kinase 175 H (30-135) U/L Total Protein 5.4 L (6.3-8.2) g/dL Albumin 2.6 L (3.5-5.1) g/dL Lipase 26 (23-300) U/L Urine Color Yellow (Yellow) Urine Appearance Cloudy H (Clear) Urine pH 6.5 (5.0-9.0) Ur Specific [place] 1.020 (1.001-1.035) Urine Protein Trace (Negative) mg/dL Urine Glucose (UA) Negative (Negative) mg/dL Urine Ketones Negative (Negative) mg/dL Ur Blood (Man) 1+ H (Negative) Urine Nitrate Positive H (Negative) Urine Bilirubin Negative (Negative) Urine Urobilinogen 1.0 (<2.0) mg/dL Add Ur Microanalysis Reviewed Leukocyte Esterase Rfl 3+ H (Negative) CYNTHIA/UL Urine RBC 0-2 (0-2) /hpf Urine WBC >100 H (0-3) /hpf Ur Squamous Epith Cells None seen (Few) /hpf Urine Bacteria 4+ H /hpf Urine Casts 0-2 Influenza A (RT-PCR) Negative (Negative) Influenza B (RT-PCR) Negative (Negative) RSV (RT-PCR) Negative (Negative) SARS-CoV-2 RNA (RT-PCR) Negative (Negative) <Alexandra Craig PA-C - Last Filed: 06/17/25 09:17> Lab Results 06/16/25 06/16/25 06/16/25 Range/Units 18:36 21:09 23:00 WBC 9.3 (4.5-10.0) K/mm3 RBC 3.60 L (4.2-5.4) M/mm3 Hgb 11.8 L (12.0-15.0) g/dL Hct 35.5 L (37.0-47.0) % MCV 98.6 (80-100) fl MCH 32.8 (26-34) pg MCHC 33.2 (32-36) g/dl RDW 16.2 H (11.5-14.5) % Plt Count 128 L (150-375) k/mm3 MPV 9.7 (7.4-10.4) fl Immature Gran % (Auto) Not Reportable Neut % (Auto) Not Reportable Lymph % (Auto) Not Reportable [place] % (Auto) Not Reportable Eos % (Auto) Not Reportable Baso % (Auto) Not Reportable Lymph # (Auto) Not Reportable [place] # (Auto) Not Reportable Eos # (Auto) Not Reportable Baso # (Auto) Not Reportable Abs Immat Gran (auto) Not Reportable Absolute Neuts (auto) Not Reportable Absolute Nucleated RBC Not Reportable Total Counted 100 Neutrophils % (Manual) 88 H (46-73) % Band Neutrophils % 6 (0-6) % Lymphocytes % (Manual) 3.0 L (18-44) % Monocytes % (Manual) 3 (3-9) % Nucleated RBC % Not Reportable Abs Neuts (Manual) 8.74 H (1.3-6.7) K/mm3 Abs Lymphs (Manual) 0.27 L (1.1-4.5) K/mm3 Abs Monocytes (Manual) 0.27 (0.1-0.90) K/mm3 Platelet Estimate Decreased (Adequate) Anisocytosis 2+ Schistocytes None seen PT 12.9 (11.1-14.7) Seconds INR 1.0 APTT 29.4 (22.3-36.8) Seconds Sodium 134 L 136 L (137-145) mmol/L Potassium 2.0 L* 2.6 L* (3.4-5.0) mmol/L Chloride 99 104 (98-107) mmol/L Carbon Dioxide 32 H 25 (22-30) mmol/L Anion Gap 3 L 7 (4-12) mmol/L BUN 11 10 (7-17) mg/dL Creatinine 0.99 0.95 (0.7-1.0) mg/dL Estim Creat Clear Calc Not Reportable Not Reportable Estimated GFR 54 L 57 L (59 - ) Glucose 121 H 77 (65-110) mg/dL Lactic Acid 2.4 H 4.2 H* (0.7-2.0) mmol/L Calcium 8.6 8.1 L (8.4-10.2) mg/dL Magnesium 2.5 H (1.6-2.3) mg/dL Total Bilirubin 1.4 H (0.2-1.3) mg/dL AST 54 H (14-36) U/L ALT 33 (6-35) U/L Alkaline Phosphatase 119 (38-126) U/L Total Creatine Kinase 175 H (30-135) U/L Total Protein 5.4 L (6.3-8.2) g/dL Albumin 2.6 L (3.5-5.1) g/dL Lipase 26 (23-300) U/L Urine Color Yellow (Yellow) Urine Appearance Cloudy H (Clear) Urine pH 6.5 (5.0-9.0) Ur Specific [place] 1.020 (1.001-1.035) Urine Protein Trace (Negative) mg/dL Urine Glucose (UA) Negative (Negative) mg/dL Urine Ketones Negative (Negative) mg/dL Ur Blood (Man) 1+ H (Negative) Urine Nitrate Positive H (Negative) Urine Bilirubin Negative (Negative) Urine Urobilinogen 1.0 (<2.0) mg/dL Add Ur Microanalysis Reviewed Leukocyte Esterase Rfl 3+ H (Negative) CYNTHIA/UL Urine RBC 0-2 (0-2) /hpf Urine WBC >100 H (0-3) /hpf Ur Squamous Epith Cells None seen (Few) /hpf Urine Bacteria 4+ H /hpf Urine Casts 0-2 Influenza A (RT-PCR) Negative (Negative) Influenza B (RT-PCR) Negative (Negative) RSV (RT-PCR) Negative (Negative) SARS-CoV-2 RNA (RT-PCR) Negative (Negative) <Sarah Sharp PA-C - Last Filed: 06/17/25 00:48> Lab Results 06/16/25 06/16/25 06/16/25 Range/Units 18:36 21:09 23:00 WBC 9.3 (4.5-10.0) K/mm3 RBC 3.60 L (4.2-5.4) M/mm3 Hgb 11.8 L (12.0-15.0) g/dL Hct 35.5 L (37.0-47.0) % MCV 98.6 (80-100) fl MCH 32.8 (26-34) pg MCHC 33.2 (32-36) g/dl RDW 16.2 H (11.5-14.5) % Plt Count 128 L (150-375) k/mm3 MPV 9.7 (7.4-10.4) fl Immature Gran % (Auto) Not Reportable Neut % (Auto) Not Reportable Lymph % (Auto) Not Reportable [place] % (Auto) Not Reportable Eos % (Auto) Not Reportable Baso % (Auto) Not Reportable Lymph # (Auto) Not Reportable [place] # (Auto) Not Reportable Eos # (Auto) Not Reportable Baso # (Auto) Not Reportable Abs Immat Gran (auto) Not Reportable Absolute Neuts (auto) Not Reportable Absolute Nucleated RBC Not Reportable Total Counted 100 Neutrophils % (Manual) 88 H (46-73) % Band Neutrophils % 6 (0-6) % Lymphocytes % (Manual) 3.0 L (18-44) % Monocytes % (Manual) 3 (3-9) % Nucleated RBC % Not Reportable Abs Neuts (Manual) 8.74 H (1.3-6.7) K/mm3 Abs Lymphs (Manual) 0.27 L (1.1-4.5) K/mm3 Abs Monocytes (Manual) 0.27 (0.1-0.90) K/mm3 Platelet Estimate Decreased (Adequate) Anisocytosis 2+ Schistocytes None seen PT 12.9 (11.1-14.7) Seconds INR 1.0 APTT 29.4 (22.3-36.8) Seconds Sodium 134 L 136 L (137-145) mmol/L Potassium 2.0 L* 2.6 L* (3.4-5.0) mmol/L Chloride 99 104 (98-107) mmol/L Carbon Dioxide 32 H 25 (22-30) mmol/L Anion Gap 3 L 7 (4-12) mmol/L BUN 11 10 (7-17) mg/dL Creatinine 0.99 0.95 (0.7-1.0) mg/dL Estim Creat Clear Calc Not Reportable Not Reportable Estimated GFR 54 L 57 L (59 - ) Glucose 121 H 77 (65-110) mg/dL Lactic Acid 2.4 H 4.2 H* (0.7-2.0) mmol/L Calcium 8.6 8.1 L (8.4-10.2) mg/dL Magnesium 2.5 H (1.6-2.3) mg/dL Total Bilirubin 1.4 H (0.2-1.3) mg/dL AST 54 H (14-36) U/L ALT 33 (6-35) U/L Alkaline Phosphatase 119 (38-126) U/L Total Creatine Kinase 175 H (30-135) U/L Total Protein 5.4 L (6.3-8.2) g/dL Albumin 2.6 L (3.5-5.1) g/dL Lipase 26 (23-300) U/L Urine Color Yellow (Yellow) Urine Appearance Cloudy H (Clear) Urine pH 6.5 (5.0-9.0) Ur Specific [place] 1.020 (1.001-1.035) Urine Protein Trace (Negative) mg/dL Urine Glucose (UA) Negative (Negative) mg/dL Urine Ketones Negative (Negative) mg/dL Ur Blood (Man) 1+ H (Negative) Urine Nitrate Positive H (Negative) Urine Bilirubin Negative (Negative) Urine Urobilinogen 1.0 (<2.0) mg/dL Add Ur Microanalysis Reviewed Leukocyte Esterase Rfl 3+ H (Negative) CYNTHIA/UL Urine RBC 0-2 (0-2) /hpf Urine WBC >100 H (0-3) /hpf Ur Squamous Epith Cells None seen (Few) /hpf Urine Bacteria 4+ H /hpf Urine Casts 0-2 Influenza A (RT-PCR) Negative (Negative) Influenza B (RT-PCR) Negative (Negative) RSV (RT-PCR) Negative (Negative) SARS-CoV-2 RNA (RT-PCR) Negative (Negative) <Yessica Mueller MD - Last Filed: 06/17/25 18:00> Imaging Data Attestation: I personally reviewed and interpreted this imaging study as follows: <Sarah Sharp PA-C - Last Filed: 06/17/25 00:48> Radiologist's impression: ITS Impressions Chest X-Ray 06/16/25 17:28 Impression: Small left lower lobe pneumonia Abdomen/Pelvis CT 06/16/25 20:15 IMPRESSION: No acute abnormality is noted in the abdomen and pelvis. Large right gluteal muscle with increased density suggestive of a intramuscular hematoma. Correlate clinically. All CT scans at this facility are performed using low dose modulation techniques as appropriate to perform exam including the following: automated exposure control; use of iterative reconstruction technique; adjustment of the mA and/or kV according to patient size (this includes techniques or standardized protocols for targeted exams where dose is matched to indication/reason for exam). <Sarah Sharp PA-C - Last Filed: 06/17/25 00:48> ECG Data EKG #1: Attestation: I personally reviewed and interpreted this ECG as follows: <WILEY Akins Last Filed: 06/17/25 00:48> ECG completion date: 06/16/25 <WILEY Akins Last Filed: 06/17/25 00:48> ECG completion time: 19:11 <WILEY Akins Last Filed: 06/17/25 00:48> EKG Interpretation: normal rate (70), sinus rhythm and non-specific ST changes <WILEY Akins Last Filed: 06/17/25 00:48> Critical Care Time Critical Care Time Critical Care Time: Yes <Sarah Sharp PA-C - Last Filed: 06/17/25 00:48> Total Critical Care Time: 40 <WILEY Akins Last Filed: 06/17/25 00:48> Discharge Plan Discharge Clinical Impression: Weakness, Hypokalemia Sepsis Qualifiers: Sepsis type: sepsis due to unspecified organism Sepsis acute organ dysfunction status: unspecified Qualified Code(s): A41.9 - Sepsis, unspecified organism Nausea and vomiting Qualifiers: Vomiting type: unspecified Qualified Code(s): R11.2 - Nausea with vomiting, unspecified Pneumonia Qualifiers: Pneumonia type: due to unspecified organism Laterality: left Lung location: lower lobe of lung Qualified Code(s): J18.9 - Pneumonia, unspecified organism UTI (urinary tract infection) Qualifiers: Urinary tract infection type: acute cystitis Hematuria presence: without hematuria Qualified Code(s): N30.00 - Acute cystitis without hematuria Hematoma of right hip Qualifiers: Encounter type: initial encounter Qualified Code(s): S70.01XA - Contusion of right hip, initial encounter <Alexandra Craig PA-C - Last Filed: 06/17/25 09:17> Patient Disposition: Still a Patient <Alexandra Craig PA-C - Last Filed: 06/17/25 09:17> Condition: Serious <Alexandra Craig PA-C - Last Filed: 06/17/25 09:17>
--- OUTSIDE RECORDS SUMMARY | 2025-06-16 18:04 | XMS_ITS | Encounter Summary ---
Author Organization [facility] Address 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
--- OUTSIDE RECORDS SUMMARY | 2025-06-16 18:04 | XMS_ITS | Encounter Summary ---
Author Organization [facility] Address 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
--- OUTSIDE RECORDS SUMMARY | 2025-06-16 18:04 | XMS_ITS | Encounter Summary ---
Author Organization [facility] Address 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
--- OUTSIDE RECORDS SUMMARY | 2025-06-16 18:04 | XMS_ITS | Encounter Summary ---
Author Organization [employer] Address 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
--- OUTSIDE RECORDS SUMMARY | 2025-06-16 18:04 | XMS_ITS | Encounter Summary ---
Author Organization [employer] Address [address] [place] [address] Care Team Providers Care Door Trimmer Name Role Phone Unavailable Primary Care Provider Unavailabl e Encounter Details Date Type Department Care Team (Late st Contact Info) Description 05/08/1999 Outpatient Historical [facility] R[facility]to Forde Social History Tobacco Use Types Packs/Day Years Used Date Smoking Tobacco: Never Assessed Comments Unknown Sex and Gender Information Value Date Recorded Sex Assigned at Not on file Legal Sex Female 3:41 AM MEDICAL LABORATORY SCIENTIST Gender Identity Not on file Sexual Orientation Not on file documented as of this encounter Plan of Treatment Not on file documented as of this encounter Visit Diagnoses Not on filedocumented in this encounter
--- OUTSIDE RECORDS SUMMARY | 2025-06-16 18:04 | XMS_ITS | Encounter Summary ---
Author Organization [employer] Address [address] [place] [address] Care Team Providers Care Agricultural Researcher Name Role Phone Unavailable Primary Care Provider Unavailabl e Encounter Details Date Type Department Care Team (Late st Contact Info) Description 06/14/1999 Outpatient Historical [facility] Remberto Forde Social History Tobacco Use Types Packs/Day Years Used Date Smoking Tobacco: Never Assessed Comments Unknown Sex and Gender Information Value Date Recorded Sex Assigned at Not on file Legal Sex Female 3:41 AM SENIOR ENVIRONMENTAL SCIENTIST Gender Identity Not on file Sexual Orientation Not on file documented as of this encounter Plan of Treatment Not on file documented as of this encounter Visit Diagnoses Not on filedocumented in this encounter
--- OUTSIDE RECORDS SUMMARY | 2025-06-16 18:04 | XMS_ITS | Encounter Summary ---
Author Organization [employer] Address [address] [place] [address] Care Team Providers Care Floor Mechanic Name Role Phone Unavailable Primary Care Provider Unavailabl e Encounter Details Date Type Department Care Team (Late st Contact Info) Description 08/30/1999 Outpatient Historical [facility] Remberto Forde Social History Tobacco Use Types Packs/Day Years Used Date Smoking Tobacco: Never Assessed Comments Unknown Sex and Gender Information Value Date Recorded Sex Assigned at Not on file Legal Sex Female 3:41 AM ENVIRONMENTAL SAFETY SPECIALIST Gender Identity Not on file Sexual Orientation Not on file documented as of this encounter Plan of Treatment Not on file documented as of this encounter Visit Diagnoses Not on filedocumented in this encounter
--- OUTSIDE RECORDS SUMMARY | 2025-06-16 18:04 | XMS_ITS | Clinical Summary ---
Author Organization [facility] Address [address] [place] [address] Care Team Providers Care Mig Tig Welder Name Role Phone Sandro Sosa MD Primary Care Provider [phone] Mehdi Joesph MD Unavailable [phone] Source Comments [facility],non-owned Affiliates and Associated Physician Practices is amultiple site organization consisting of ambulatory clinics and hospital sitesin [place], [place], [place] and [place]. This disclosure is being madepursuant to the Care Everywhere program and may not contain all information available regarding this patient. Last updated 18.[facility] [employer] Allergies Active Allergy Reactions Criticality Noted Date [...] Active azelastine (ASTELIN) 137 MCG/SPRAY nasal spray [place] 2 Sprays into each nostril 2 times [...] (PLAQUENIL) 200 MG tabletIndicatio ns:Rheumatoid arthritis(714.0 ) ([facility]) Take 1 Tab by mouth 2 times [...] on file Legal Sex Female 4:25 AM CLOCK AND WATCH HANDS PAINTER Gender Identity Not on file Sexual Orientation Not on file Last Filed Vital Signs Vital Sign Reading Time Taken Comments Blood Pressure 96/68 09/08/2010 11:05 AM CLOCK AND WATCH HANDS PAINTER Pulse 74 09/08/2010 11:05 AM CLOCK AND WATCH HANDS PAINTER Temperature - - Respiratory Rate - - Oxygen Saturation - - Inhaled Oxygen Concentration - - Weight 54.9 kg (121 lb) 09/08/2010 11:05 AM CLOCK AND WATCH HANDS PAINTER Height 162.6 cm (5' 4) 09/08/2010 11:05 AM CLOCK AND WATCH HANDS PAINTER Body Mass Index 20.77 09/08/2010 11:05 AM CLOCK AND WATCH HANDS PAINTER Plan of Treatment Health Maintenance Due Date [...] age to complete this topic Care Teams Mig Tig Welder Relationship Specialty Start Date End Date Sandro Sosa MD [address] [place] [id number] PCP - General 01/04/09 Mehdi Joseph MD [address] [place] [id number] Gastroenterology 04/26/10
--- OUTSIDE RECORDS SUMMARY | 2025-06-16 18:04 | XMS_ITS | Encounter Summary ---
Author Organization [employer] Address [address] [place] [address] Care Team Providers Care Call Center Analyst Name Role Phone Unavailable Primary Care Provider Unavailabl e Encounter Details Date Type Department Care Team (Late st Contact Info) Description 04/17/1999 Outpatient Historical [facility]to Forde Social History Tobacco Use Types Packs/Day Years Used Date Smoking Tobacco: Never Assessed Comments Unknown Sex and Gender Information Value Date Recorded Sex Assigned at Not on file Legal Sex Female 3:41 AM TOMATO GRADER Gender Identity Not on file Sexual Orientation Not on file documented as of this encounter Plan of Treatment Not on file documented as of this encounter Visit Diagnoses Not on filedocumented in this encounter
--- OUTSIDE RECORDS SUMMARY | 2025-06-16 18:04 | XMS_ITS | Clinical Summary ---
Author Organization [employer] Address [address] [place]: Epic Prelude ADT [place] [address] Care Team Providers Care Applications Developer Name Role Phone Unavailable Primary Care Provider Unavailabl e Social History Tobacco Use Types Packs/Day Years Used Date Smoking Tobacco: Never Assessed Comments Unknown Sex and Gender Information Value Date Recorded Sex Assigned at Not on file Legal Sex Female 3:41 AM LOGISTICS ASSOCIATE Gender Identity Not on file Sexual Orientation [...]
--- OUTSIDE RECORDS SUMMARY | 2025-06-16 18:04 | XMS_ITS | Clinical Summary ---
Author Organization [facility] Address [address] [place] [address] Care Team Providers Care Manager Floor Name Role Phone Sandro Sosa Primary Care Provider [phone] Allergies Active Allergy Reactions Criticality Noted Date [...] E) 200 unit capsule Take according to mddq-oza-vwgbxq r package directions 0 0 8 Active levothyroxine (SYNTHROID) 112 mcg tablet Take one by mouth one time per day 90 3 9 Active dicyclomine (BENTYL) 20 mg tablet Take one by mouth one time per day 0 0 8 Active ascorbic acid, vitamin C, (VITAMIN C) 500 mg capsule, extended release CR capsule Take according to dsxi-alp-suweot r package directions 0 0 8 Active b complex vitamins (B COMPLEX-VITAMIN B12) tablet Take according to bkag-hlu-snwedd r package directions 0 0 8 Active glucosamine-cho ndroit-vit C-Mn capsule Take according to heqn-xta-wvwdjf r package directions 0 0 8 Active calcium 500 mg tablet Take according to dbhf-yqs-oxxonl r package directions 0 0 8 Active [...] on file Legal Sex Female 3:11 PM RENAL MEDICINE SPECIALIST Gender Identity Not on file Sexual Orientation Not on file Last Filed Vital Signs Vital Sign Reading Time Taken Comments Blood Pressure 120/70 09/26/2017 11:02 AM RENAL MEDICINE SPECIALIST Pulse 79 09/26/2017 11:02 AM RENAL MEDICINE SPECIALIST Temperature 36.4 C (97.5 F) 09/26/2017 11:02 AM RENAL MEDICINE SPECIALIST Respiratory Rate 16 09/26/2017 11:02 AM RENAL MEDICINE SPECIALIST Oxygen Saturation 98% 09/26/2017 11:02 AM RENAL MEDICINE SPECIALIST Inhaled Oxygen Concentration - - Weight 75.8 kg (167 lb) 09/26/2017 11:02 AM RENAL MEDICINE SPECIALIST Height 160 cm (5' 3) 09/26/2017 11:02 AM RENAL MEDICINE SPECIALIST Body Mass Index 29.58 09/26/2017 11:02 AM RENAL MEDICINE SPECIALIST Plan of Treatment Not on file Insurance [employer] MEDICARE Care Teams Manager Floor Relationship Specialty Start Date End Date Sandro Sosa [address] [place] [address] PCP - General 11/02/16
--- OUTSIDE RECORDS SUMMARY | 2025-06-16 18:04 | XMS_ITS | Encounter Summary ---
Author Organization [employer] Address [address] [place] [address] Care Team Providers Care Alliance Director Name Role Phone Unavailable Primary Care Provider Unavailabl e Encounter Details Date Type Department Care Team (Late st Contact Info) Description 12/27/1999 Outpatient Historical [facility]to Forde Social History Tobacco Use Types Packs/Day Years Used Date Smoking Tobacco: Never Assessed Comments Unknown Sex and Gender Information Value Date Recorded Sex Assigned at Not on file Legal Sex Female 3:41 AM VP OF MARKETING Gender Identity Not on file Sexual Orientation Not on file documented as of this encounter Plan of Treatment Not on file documented as of this encounter Visit Diagnoses Not on filedocumented in this encounter
--- OUTSIDE RECORDS SUMMARY | 2025-06-16 18:04 | XMS_ITS | Encounter Summary ---
Author Organization [email or web address] Address [address] [place] [address] Care Team Providers Care Milk Bottling Machine Operator Name Role Phone Unavailable Primary [...] file Legal Sex Female 3:41 AM PROGRAM PROPOSALS COORDINATOR Gender Identity Not on file Sexual Orientation Not on file documented as of this encounter Plan of Treatment Not on file documented as of this encounter Visit Diagnoses Not on filedocumented in this encounter
--- OUTSIDE RECORDS SUMMARY | 2025-06-16 18:04 | XMS_ITS | Encounter Summary ---
Author Organization [employer] Address [address] [place] [address] Care Team Providers Care Buffing Wheel Operator Name Role Phone Unavailable Primary Care Provider Unavailabl e Encounter Details Date Type Department Care Team (Late st Contact Info) Description 02/03/1999 Outpatient Historical [facility]emberto Forde Social History Tobacco Use Types Packs/Day Years Used Date Smoking Tobacco: Never Assessed Comments Unknown Sex and Gender Information Value Date Recorded Sex Assigned at Not on file Legal Sex Female 3:41 AM PUMPING STATION ENGINEER Gender Identity Not on file Sexual Orientation Not on file documented as of this encounter Plan of Treatment Not on file documented as of this encounter Visit Diagnoses Not on filedocumented in this encounter
--- OUTSIDE RECORDS SUMMARY | 2025-06-16 18:04 | XMS_ITS | Encounter Summary ---
Author Organization [employer] Address [address] [place] [address] Care Team Providers Care Citrus Picker Name Role Phone Unavailable Primary Care Provider Unavailabl e Encounter Details Date Type Department Care Team (Late st Contact Info) Description 11/13/1999 Outpatient Historical [facility] HERZOG Reyna, Rodger Granados MD [address] [place] [phone] Social History Tobacco Use Types Packs/Day Years Used Date Smoking Tobacco: Never Assessed Comments Unknown Sex and Gender Information Value Date Recorded Sex Assigned at Not on file Legal Sex Female 3:41 AM ELECTRICAL SYSTEMS ENGINEER Gender Identity Not on file Sexual Orientation Not on file documented as of this encounter Plan of Treatment Not on file documented as of this encounter Visit Diagnoses Not on filedocumented in this encounter
--- OUTSIDE RECORDS SUMMARY | 2025-06-16 18:04 | XMS_ITS | Encounter Summary ---
Author Organization [employer] Address [address] [place] [address] Care Team Providers Care Hog Killer Name Role Phone Unavailable Primary Care Provider Unavailabl e Encounter Details Date Type Department Care Team (Late st Contact Info) Description 03/15/1999 Outpatient Historical [facility] Remberto Forde Social History Tobacco Use Types Packs/Day Years Used Date Smoking Tobacco: Never Assessed Comments Unknown Sex and Gender Information Value Date Recorded Sex Assigned at Not on file Legal Sex Female 3:41 AM DOMESTIC LAUNDRY WORKER Gender Identity Not on file Sexual Orientation Not on file documented as of this encounter Plan of Treatment Not on file documented as of this encounter Visit Diagnoses Not on filedocumented in this encounter
--- OUTSIDE RECORDS SUMMARY | 2025-06-16 18:04 | XMS_ITS | Encounter Summary ---
Author Organization [employer] Address [address] [place] [address] Care Team Providers Care Beer Runner Name Role Phone Unavailable Primary Care Provider Unavailabl e Encounter Details Date Type Department Care Team (Late st Contact Info) Description 02/07/2000 Outpatient Historical [facility] HERZOG Reyna, Rodger Granados MD [address] [place] [phone] Social History Tobacco Use Types Packs/Day Years Used Date Smoking Tobacco: Never Assessed Comments Unknown Sex and Gender Information Value Date Recorded Sex Assigned at Not on file Legal Sex Female 3:41 AM RELIGIOUS RITUAL SLAUGHTERER Gender Identity Not on file Sexual Orientation Not on file documented as of this encounter Plan of Treatment Not on file documented as of this encounter Visit Diagnoses Not on filedocumented in this encounter
--- OUTSIDE RECORDS SUMMARY | 2025-06-16 18:04 | XMS_ITS | Encounter Summary ---
Author Organization [email or web address] Address [address] [place] [address] Care Team Providers Care Hospital Monitor Name Role Phone Unavailable Primary Care Provider Unavailabl e Encounter Details Date Type Department Care Team (Late st Contact Info) Description 03/13/2000 Outpatient Historical [facility] HERZOG Reyna, Rodger Granados MD [address] [place] [phone] Social History Tobacco Use Types Packs/Day Years Used Date Smoking Tobacco: Never Assessed Comments Unknown Sex and Gender Information Value Date Recorded Sex Assigned at Not on file Legal Sex Female 3:41 AM END FINDER TWISTING DEPARTMENT Gender Identity Not on file Sexual Orientation Not on file documented as of this encounter Plan of Treatment Not on file documented as of this encounter Visit Diagnoses Not on filedocumented in this encounter
[2025-06-16 18:42] LABS: Hematocrit 35.5 % (37.0-47.0); Hemoglobin 11.8 g/dL (12.0-15.0); Mean Corpuscular HGB Conc 33.2 g/dl (32-36); Mean Corpuscular Hemoglobin 32.8 pg (26-34); Mean Corpuscular Volume 98.6 fl (80-100); Platelet Count Result 128 k/mm3 (150-375); Red Blood Count 3.60 M/mm3 (4.2-5.4); White Blood Count 9.3 K/mm3 (4.5-10.0)
[2025-06-16 18:54] LABS: INR 1.0; Partial Thromboplastin Time 29.4 Seconds (22.3-36.8); Prothrombin Time 12.9 Seconds (11.1-14.7)
[2025-06-16 18:58] LABS: Alanine Aminotransferase 33 U/L (6-35); Albumin Level 2.6 g/dL (3.5-5.1); Alkaline Phosphatase 119 U/L (38-126); Anion Gap 3 mmol/L (4-12); Aspartate Amino Transferase 54 U/L (14-36); Bilirubin,Total 1.4 mg/dL (0.2-1.3); Blood Urea Nitrogen 11 mg/dL (7-17); Calcium 8.6 mg/dL (8.4-10.2); Carbon Dioxide 32 mmol/L (22-30); Chloride 99 mmol/L (98-107); Estimated Glomerular Filt Rate 54; Glucose 121 mg/dL (65-110); Lipase 26 U/L (23-300); Potassium 2.0 mmol/L (3.4-5.0); Sodium 134 mmol/L (137-145); Total Protein 5.4 g/dL (6.3-8.2)
--- NOTE | 2025-06-16 18:58 | ECG_ITS ---
Test Date: 2025-06-16 19:11:01 Measurements Intervals [place] Rate: 70 P: 69 AK: 157 QRS: -32 QRSD: 89 T: 60 QT: 292 QTc: 315 Interpretive Statements SINUS RHYTHM WITH SINUS ARRHYTHMIA LOW QRS VOLTAGE IN PRECORDIAL LEADS POSSIBLE ANTERIOR MYOCARDIAL INFARCTION , AGE INDETERMINATE INFERIOR MYOCARDIAL INFARCTION , PROBABLY OLD Electronically Signed On 06-16-2025 22:34:01 BLIND INSTALLER by Luis Helms D.O
[2025-06-16 19:22] LABS: Influenza A QL RT-PCR Negative (Negative); Influenza B QL RT-PCR Negative (Negative); RSV RNA, RT-PCR Negative (Negative); SARS-CoV-2 RNA PCR Negative (Negative)
[2025-06-16] MEDS: SODIUM CHLORIDE 0.9% IV 1,000 ML 999 ML IV CONT ×2 (19:46→21:40)
[2025-06-16 19:49] LABS: Band Neutrophils Percent 6 % (0-6); Lymphocytes Absolute Manual 0.27 K/mm3 (1.1-4.5); Lymphocytes Percent Manual 3.0 % (18-44); Monocytes Absolute Manual 0.27 K/mm3 (0.1-0.90); Monocytes Percent Manual 3 % (3-9); Neutrophils Absolute Manual 8.74 K/mm3 (1.3-6.7); Neutrophils Percent Manual 88 % (46-73); Total Cells Counted 100
[2025-06-16 19:50] LABS: Anisocytosis 2+; Schistocytes None Seen
[2025-06-16] MEDS: POTASSIUM CHLORIDE INJ 40 MEQ in SODIUM CHLORIDE 0.9% IV 500 ML 130 MEQ IVPB (19:51)
[2025-06-16 19:52] LABS: Magnesium 2.5 mg/dL (1.6-2.3)
[2025-06-16] MEDS: ONDANSETRON INJ 4 MG/2 ML VIAL IV PUSH (20:13)
[2025-06-16] MEDS: FAMOTIDINE 20 MG/2 ML VIAL IV PUSH (20:13)
[2025-06-16 20:46] LABS: Creatine Kinase 175 U/L (30-135)
[2025-06-16 21:30] LABS: Add Urine Microscopic? YES; Appearance Urine Cloudy (Clear); Glucose Urine UA Negative (Negative); Leukocyte Esterase Ur 3+ LEU/UL (Negative); Need Manual Microscopic Reviewed; Nitrate Urine Positive (Negative); Non Pathogenic Casts 0-2; Specific Grav Ur 1.020 (1.001-1.035)
[2025-06-16] MEDS: POTASSIUM CHLORIDE 20 MEQ ER TABLET 40 MEQ PO (21:37)
[2025-06-16] MEDS: AZITHROMYCIN IV 500 MG in SODIUM CHLORIDE 0.9% IV 250 ML IVPB (21:38)
[2025-06-16] MEDS: cefTRIAXone 1 GM in SODIUM CHLORIDE 0.9% IV 50 ML 100 ML IVPB (21:39)
[2025-06-16] MEDS: LORazepam (*CRX) 0.5 MG TABLET PO (21:55)
[2025-06-16] MEDS: HYDROmorphone HCL INJ (*CRX) 1 MG/ML SYR 0.5 MG IV PUSH (22:38)
[2025-06-16 23:46] LABS: Anion Gap 7 mmol/L (4-12); Blood Urea Nitrogen 10 mg/dL (7-17); Calcium 8.1 mg/dL (8.4-10.2); Carbon Dioxide 25 mmol/L (22-30); Chloride 104 mmol/L (98-107); Estimated Glomerular Filt Rate 57; Glucose 77 mg/dL (65-110); Potassium 2.6 mmol/L (3.4-5.0); Sodium 136 mmol/L (137-145)
[2025-06-17] VITALS (15 sets, daily range): BP systolic 107–165; BP diastolic 60–93; PULSE 81–107; RESP 12–20; TEMP 36.4–38.2; O2SAT 96–100; BMI 22.1
[2025-06-17] MEDS: SODIUM CHLORIDE 0.9% IV 1,000 ML 999 ML IV CONT (00:18)
[2025-06-17] MEDS: ACETAMINOPHEN 500 MG TABLET 1000 MG PO (00:23)
--- NOTE | 2025-06-17 01:22 | WPCEDHO ---
ED Hand Off Checklist All vitals saved:Yes IV Site documented:Yes All med administrations documented:Yes Triage Note Triage Note pt to ED c/o having a virus, been 06/16/25 15:36 going on for 5 days. pt also reports having decreased intake of food and fluid. pt has the chills, notes having nausea with emesis Allergies acetaminophen Allergy (Unknown, Verified 06/16/25 15:38) Unknown codeine Allergy (Unknown, Verified 06/16/25 15:38) Unknown ibuprofen Allergy (Unknown, Verified 06/16/25 15:38) unknown pregabalin Allergy (Unknown, Verified 06/16/25 15:38) Unknown quinine Allergy (Unknown, Verified 06/16/25 15:38) unknown All antidepressants Allergy (Unknown, Uncoded 12/02/23 11:15) Unknown Family History (Last Reviewed 06/16/25 @ 20:15 by Sarah Sharp PA-C) Mother Acute myocardial infarction Rheumatoid arthritis Heart disease Thyroid disorder Father Heart disease Sibling Thyroid disorder Administered/Completed Medications Discontinued Medications Acetaminophen (Acetaminophen 500 Mg Tablet) 1,000 mg PO ONCE STA Stop: 06/16/25 22:01 Last Admin: 06/16/25 22:10 Dose: Not Given Documented By: FLOWER Non-Admin Reason: Patient Refuses Acetaminophen (Acetaminophen 500 Mg Tablet) 1,000 mg PO ONCE STA Stop: 06/17/25 00:04 Last Admin: 06/17/25 00:23 Dose: 1,000 mg Documented By: FLOWER Famotidine (Famotidine 20 Mg/2 Ml Vial) 20 mg IV PUSH ONCE STA Stop: 06/16/25 19:51 Last Admin: 06/16/25 20:13 Dose: 20 mg Documented By: FLOWER Hydromorphone HCl (Hydromorphone Hcl Inj (*Crx) 1 Mg/Ml Syr) 0.5 mg IV PUSH ONCE STA Stop: 06/16/25 22:25 Last Admin: 06/16/25 22:38 Dose: 0.5 mg Documented By: DEANNA Sodium Chloride (Normal Saline Iv) 1,000 mls @ 999 mls/hr IV CONT .Q1H1M STA Stop: 06/16/25 20:05 Last Infusion: 06/16/25 23:03 Dose: Infused Documented By: Admin: 06/16/25 19:46 Dose: 999 mls/hr Documented By: FLOWER Potassium Chloride 40 meq/ (Sodium Chloride) 520 mls @ 130 mls/hr IVPB ONCE STA Stop: 06/16/25 23:04 Last Infusion: 06/17/25 01:19 Dose: Infused Documented By: Admin: 06/16/25 19:51 Dose: 130 mls/hr Documented By: FLOWER Sodium Chloride (Normal Saline Iv) 1,000 mls @ 999 mls/hr IV CONT .Q1H1M STA Stop: 06/16/25 20:50 Last Infusion: 06/17/25 01:20 Dose: Infused Documented By: Admin: 06/16/25 21:40 Dose: 999 mls/hr Documented By: FLOWER Ceftriaxone Sodium 1 gm/ (Sodium Chloride) 50 mls @ 100 mls/hr IVPB ONCE STA Stop: 06/16/25 20:55 Last Infusion: 06/16/25 23:03 Dose: Infused Documented By: Admin: 06/16/25 21:39 Dose: 100 mls/hr Documented By: FLOWER Azithromycin 500 mg/ Sodium (Chloride) 250 mls @ 250 mls/hr IVPB ONCE STA Stop: 06/16/25 21:25 Last Infusion: 06/16/25 23:03 Dose: Infused Documented By: Admin: 06/16/25 21:38 Dose: 250 mls/hr Documented By: FLWOER Sodium Chloride (Normal Saline Iv) 1,000 mls @ 999 mls/hr IV CONT .Q1H1M STA Stop: 06/16/25 22:41 Last Admin: 06/17/25 00:18 Dose: 999 mls/hr Documented By: FLOWER Lorazepam (Lorazepam (*Crx) 0.5 Mg Tablet) 0.5 mg PO ONCE STA Stop: 06/16/25 21:49 Last Admin: 06/16/25 21:55 Dose: 0.5 mg Documented By: FLOWER Ondansetron HCl (Ondansetron Inj 4 Mg/2 Ml Vial) 4 mg IV PUSH ONCE STA Stop: 06/16/25 19:54 Last Admin: 06/16/25 20:13 Dose: 4 mg Documented By: FLOWER Potassium Chloride (Potassium Chloride 20 Meq Er Tablet) 40 meq PO ONCE STA Stop: 06/16/25 19:06 Last Admin: 06/16/25 21:37 Dose: 40 meq Documented By: FLOWER Interventions/Assessments IV / Saline Lock, Insert Start: 06/16/25 17:05 Freq: STAT Status: Active Protocol: Document 06/16/25 21:50 LLG (Rec: 06/17/25 01:21 LLG [id number]) IV Assessment Peripheral Access Right Wrist IV Catheter Access Initiated IV Insertion Date 06/17/25 IV Insertion Time 21:50 Catheter Gauge 20 IV Insertion 1 Attempts Ultrasound Used for Yes Placement IV Site Assessment WNL IV Care and WNL Maintenance PA: Respiratory Assessment Start: 06/16/25 15:41 Freq: Status: Active Protocol: Document 06/16/25 18:28 AJW (Rec: 06/16/25 18:30 AJW [id number]) Respiratory Assessment Symptoms Congestion,Cough Effort Normal Pattern Tachypnea Chest Expansion Symmetrical Cough Description Loose,Productive Oxygen Delivery Oxygen Delivery Room Air Pulse Oximetry (90- 98 100) Last Vital Signs Temperature 100.8 F H 06/17/25 00:06 Pulse Rate 114 H 06/16/25 23:32 Respiratory Rate 17 06/16/25 23:32 Pulse Oximetry 97 06/16/25 23:31 Blood Pressure 124/107 H 06/16/25 23:31 Blood Pressure Mean 114 06/16/25 23:31 Oxygen Delivery Room Air 06/16/25 18:28 Last Result - Abnormals Only RBC 3.60 M/mm3 (4.2-5.4) L 06/16/25 18:36 Hgb 11.8 g/dL (12.0-15.0) L 06/16/25 18:36 Hct 35.5 % (37.0-47.0) L 06/16/25 18:36 RDW 16.2 % (11.5-14.5) H 06/16/25 18:36 Plt Count 128 k/mm3 (150-375) L 06/16/25 18:36 Neutrophils % (Manual) 88 % (46-73) H 06/16/25 18:36 Lymphocytes % (Manual) 3.0 % (18-44) L 06/16/25 18:36 Abs Neuts (Manual) 8.74 K/mm3 (1.3-6.7) H 06/16/25 18:36 Abs Lymphs (Manual) 0.27 K/mm3 (1.1-4.5) L 06/16/25 18:36 Sodium 136 mmol/L (137-145) L 06/16/25 23:00 Potassium 2.6 mmol/L (3.4-5.0) L* 06/16/25 23:00 Carbon Dioxide 32 mmol/L (22-30) H 06/16/25 18:36 Anion Gap 3 mmol/L (4-12) L 06/16/25 18:36 Estimated GFR 57 (59-) L 06/16/25 23:00 Glucose 121 mg/dL (65-110) H 06/16/25 18:36 Lactic Acid 4.2 mmol/L (0.7-2.0) H* 06/16/25 23:00 Calcium 8.1 mg/dL (8.4-10.2) L 06/16/25 23:00 Magnesium 2.5 mg/dL (1.6-2.3) H 06/16/25 18:36 Total Bilirubin 1.4 mg/dL (0.2-1.3) H 06/16/25 18:36 AST 54 U/L (14-36) H 06/16/25 18:36 Total Creatine Kinase 175 U/L (30-135) H 06/16/25 18:36 Total Protein 5.4 g/dL (6.3-8.2) L 06/16/25 18:36 Albumin 2.6 g/dL (3.5-5.1) L 06/16/25 18:36 Urine Appearance Cloudy (Clear) H 06/16/25 21:09 Ur Blood (Man) 1+ (Negative) H 06/16/25 21:09 Urine Nitrate Positive (Negative) H 06/16/25 21:09 Leukocyte Esterase Rfl 3+ CYNTHIA/UL (Negative) H 06/16/25 21:09 Urine WBC >100 /hpf (0-3) H 06/16/25 21: Urine Bacteria 4+ /hpf H 06/16/25 21:09 Most Recent Suicide Severity Rating Suicide Severity Rating NO RISK INDICATED 06/16/25 15:36
--- NOTE | 2025-06-17 01:45 | PM.IMHP ---
H&P: HPI History of Present Illness Date/Time: 06/17/25 01:45 Chief Complaint: Lower abdominal pain Narrative: 75-year-old female presents to [facility] ER on 06/16/2025 with subjective fevers, chills, vomiting, cough, lower abdominal pain. PMH osteoporosis, anxiety, irritable bowel syndrome, anemia, dyslipidemia, hypothyroidism. Multiple symptoms have been going on for many weeks. Mild temperature in the ER 100.8? F, sinus tachycardia. EKG demonstrating sinus rhythm with sinus arrhythmia, QTC 315. WBC 9.3, hemoglobin 11.8, platelets 128, neutrophilia, INR 1.0, sodium 134, potassium 2.0, serum creatinine 0.99, glucose 121, lactic acid 2.4, total bilirubin 1.4, AST 54, urinalysis positive for greater than 100 WBC, bacteria, leukocyte esterase, nitrates. Blood culture x2, urine culture x1 obtain. Abdomen pelvis CT with contrast demonstrates no abnormalities aside from large right gluteal muscle with increased density suggesting intramuscular hematoma. Chest x-ray demonstrating small left lower lobe pneumonia. Patient given Tylenol, Dilaudid, lorazepam, 3 L normal saline bolus, ceftriaxone 1 g IV x1, azithromycin 500 mg IV x1, Pepcid, potassium p.o. and IV. Of note, patient did have a fall on 06/05/2025 and she was evaluated in this hospital. At that time she tripped and hit her right eyelid, no stitching required, the laceration is healing. She also fell on her right buttock and we suspect that is where the hematoma has been developing from. At that time she had CT head and CT cervical spine, x-ray of right ribs and right hip. She received Dilaudid, tetanus shot in discharged home in stable condition. Review of Systems Review of Systems: All systems reviewed & are unremarkable except as noted in HPI and below (Subjective) [facility] Past Medical History Medical History Hypothyroidism (acquired) History of gastric ulcer (~09/2021) Age related osteoporosis Environmental allergies Chronic low back pain Rheumatoid arthritis with rheumatoid factor of multiple sites without organ or systems involvement Cataract Dyslipidemia Anemia Anxiety Insomnia Unspecified osteoarthritis, unspecified site Thyroid disorder IBS (irritable bowel syndrome) Surgical History Surgical History History of cholecystectomy 1978 History of sleeve gastrectomy 1976 History of eye surgery implants-2018 History of thumb surgery bi-lateral - age med 28's History of total hysterectomy 1976 History of cataract surgery Left-04/07/2019 Right-04/22/2019 Family History Family History Mother Acute myocardial infarction Rheumatoid arthritis Heart disease Thyroid disorder Father Heart disease Sibling Thyroid disorder Social History Social History Smoking status: Former smoker Tobacco type: cigarettes Second hand tobacco smoke exposure: No Smoking end date: 08/05/83 Alcohol intake: former Substance use: current Substance use type: marijuana Lack of Transportation: No Lack of Food: Never True Current Housing: I Have Housing Concerned About Future Housing: No Difficulty Paying Gas/Electric Bills: No Difficulty Paying for Meds: No Currently Unemployed: No Education: High School Diploma/GED Difficulty w/ Childcare or Family Care: No Spiritual care concerns: No Meds Home Medications and Allergies Home Medications ?Medication ?Instructions ?Recorded ?Confirmed ?Type cholecalciferol (vitamin D3) 125 10,000 unit PO WEEKLY 02/26/22 06/17/25 History mcg (5,000 unit) capsule calcium carbonate 500 mg PO DAILY 03/05/23 06/17/25 History dicyclomine 20 mg tablet 20 mg PO TID PRN Anxiety #30 tabs 12/02/23 06/17/25 Rx levothyroxine 50 mcg tablet 50 mcg PO DAILY #90 tabs 01/09/24 06/17/25 Rx rosuvastatin 5 mg tablet 5 mg PO DAILY #90 tabs 12/14/24 06/17/25 Rx ondansetron 4 mg disintegrating 4 mg PO Q4H PRN nausea and 06/05/25 06/17/25 Rx tablet vomiting #10 tabs ascorbic acid (vitamin C) 1,000 mg 1,000 mg PO TID 06/17/25 06/17/25 History tablet,extended release (C Complex) potassium 99 mg tablet 198 mg PO TID PRN MUSCLE SPASMS 06/17/25 06/17/25 History vitamin E 268 mg (400 unit) capsule 1,072 mg PO DAILY 06/17/25 06/17/25 History Allergies Allergy/AdvReac Type Severity Reaction Status Date / Time acetaminophen Allergy Unknown Unknown Verified 06/17/25 02:02 codeine Allergy Unknown Unknown Verified 06/17/25 02:02 ibuprofen Allergy Unknown unknown Verified 06/17/25 02:02 pregabalin Allergy Unknown Unknown Verified 06/17/25 02:02 quinine Allergy Unknown unknown Verified 06/17/25 02:02 All antidepressants Allergy Unknown Unknown Uncoded 12/02/23 11:15 Vital Signs Vital Signs - 24 hr 06/16/25 15:40 06/16/25 18:28 06/16/25 20:28 Temperature 98.8 F Pulse Rate 70 84 Respiratory Rate 14 13 Blood Pressure 141/62 H Pulse Oximetry 98 98 99 Oxygen Delivery Room Air Room Air 06/16/25 20:32 06/16/25 20:45 06/16/25 20:46 Temperature Pulse Rate 87 85 83 Respiratory Rate 11 L 13 12 Blood Pressure 137/57 L Pulse Oximetry 100 100 100 Oxygen Delivery 06/16/25 21:29 06/16/25 21:30 06/16/25 21:31 Temperature Pulse Rate 88 89 90 Respiratory Rate 14 15 20 Blood Pressure 131/70 Pulse Oximetry Oxygen Delivery 06/16/25 21:32 06/16/25 21:50 06/16/25 21:52 Temperature 97.7 F Pulse Rate 89 Respiratory Rate 16 18 Blood Pressure Pulse Oximetry Oxygen Delivery 06/16/25 22:00 06/16/25 22:13 06/16/25 22:15 Temperature Pulse Rate Respiratory Rate 19 19 16 Blood Pressure 146/129 H Pulse Oximetry Oxygen Delivery 06/16/25 22:30 06/16/25 22:31 06/16/25 22:45 Temperature Pulse Rate 117 H Respiratory Rate 19 19 17 Blood Pressure 173/95 H Pulse Oximetry Oxygen Delivery 06/16/25 23:07 06/16/25 23:15 06/16/25 23:22 Temperature Pulse Rate 115 H 115 H 112 H Respiratory Rate 17 23 H 13 Blood Pressure 136/63 Pulse Oximetry 98 Oxygen Delivery 06/16/25 23:30 06/16/25 23:31 06/16/25 23:32 Temperature Pulse Rate 108 H 107 H 114 H Respiratory Rate 15 17 17 Blood Pressure 124/107 H Pulse Oximetry 96 97 Oxygen Delivery 06/17/25 00:06 Temperature 100.8 F H Pulse Rate Respiratory Rate Blood Pressure Pulse Oximetry Oxygen Delivery Exam Const: General: comfortable and no acute distress Other: A&O x3 HENMT: Mouth: Yes dry mucous membranes Eyes: Pupils: Equal, round and reactive pupils present Neck: Neck: supple Resp: Effort & Inspection: normal respiratory effort Auscultation: clear to auscultation bilaterally Cardio: Rate: regular rate Rhythm: regular rhythm GI: Inspection: distended GI Palp: Yes Soft to palpation and No Tenderness to palpation present (GI) Auscultation: normal bowel sounds : General: Yes bladder normal to palpation Neuro: Motor exam (neuro): 5/5 motor strength present throughout Extrem: General: no edema Other: Edema and ecchymosis over the right buttock into the posterior right thigh. No tenderness to palpation, no excessive warmth, no ulceration or drainage. Diffusely soft without any focal area of fluctuance. H&P: Results Labs Labs: Short CBC 06/16/25 Range/Units 18:36 WBC 9.3 (4.5-10.0) K/mm3 Hgb 11.8 L (12.0-15.0) g/dL Hct 35.5 L (37.0-47.0) % Plt Count 128 L (150-375) k/mm3 BMP 06/16/25 06/16/25 18:36 23:00 Sodium 134 L 136 L Potassium 2.0 L* 2.6 L* Chloride 99 104 Carbon Dioxide 32 H 25 BUN 11 10 Creatinine 0.99 0.95 Glucose 121 H 77 Calcium 8.6 8.1 L Cardiac Enzymes 06/16/25 Range/Units 18:36 Total Creatine Kinase 175 H (30-135) U/L Liver Function 06/16/25 Range/Units 18:36 Total Bilirubin 1.4 H (0.2-1.3) mg/dL AST 54 H (14-36) U/L ALT 33 (6-35) U/L Alkaline Phosphatase 119 (38-126) U/L Albumin 2.6 L (3.5-5.1) g/dL Urine 06/16/25 Range/Units 21:09 Urine Color Yellow (Yellow) Urine Appearance Cloudy H (Clear) Urine pH 6.5 (5.0-9.0) Ur Specific [place] 1.020 (1.001-1.035) Urine Protein Trace (Negative) mg/dL Urine Glucose (UA) Negative (Negative) mg/dL Assessment and Plan Assessment and plan (1) UTI (urinary tract infection): Qualifiers: Hematuria presence: without hematuria Urinary tract infection type: acute cystitis Qualified Code(s): N30.00 - Acute cystitis without hematuria Code(s): N39.0 - Urinary tract infection, site not specified Status: Acute (2) Sepsis: Qualifiers: Sepsis acute organ dysfunction status: unspecified Sepsis type: sepsis due to unspecified organism Qualified Code(s): A41.9 - Sepsis, unspecified organism Code(s): A41.9 - Sepsis, unspecified organism Status: Acute (3) Weakness: Code(s): R53.1 - Weakness Status: Acute (4) Pneumonia: Qualifiers: Laterality: left Lung location: lower lobe of lung Pneumonia type: due to unspecified organism Qualified Code(s): J18.9 - Pneumonia, unspecified organism Code(s): J18.9 - Pneumonia, unspecified organism Status: Acute (5) Hematoma of right buttock: Code(s): S30.0XXA - Contusion of lower back and pelvis, initial encounter Status: Acute Plan Patient presents with multiple symptoms, evaluation reveals left lower lobe pneumonia, UTI. Continue ceftriaxone 1 g Q 24 hours and azithromycin. Quad viral screen negative, check full respiratory pathogen panel. Follow-up urine and blood cultures. Check Legionella, mycoplasma, strep pneumococcus antigen. Maintenance fluids. Hypokalemia replaced. Continue to replace and recheck. Lactic acidosis on admission 2.4, increasing to 4.2 after fluids however reportedly the sample was not tested until at least 40 minutes, possibly erroneously. Her blood pressure at that time was stable. A 3rd repeat was showing normal lactic acid. Patient is malnourished from over a week of being ill. Dietary supplements. Dietitian consultation. 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 General surgery consulted for large right gluteal muscle hematoma. Does not appear infected, no compartment syndrome, neurovascular exam right lower extremity intact. Full code. SCDs. Regular diet. Fluids. Fall precaution, ambulate with assistance, PT/OT evaluations. Hospitalist MIPS Advance Care Plan I have confirmed that the patient's Advanced Care Plan is present, code status is documented, or surrogate decision maker is listed in patient medical record.: Yes Medication Reconciliation I have utilized all available resources to obtain, update and review the patients current medications (includes all prescriptions, OTC, herbals, cannabis, and nutritional supplements).: Yes
[2025-06-17 02:20] LABS: Anion Gap 2 mmol/L (4-12); Blood Urea Nitrogen 8 mg/dL (7-17); Calcium 7.0 mg/dL (8.4-10.2); Carbon Dioxide 22 mmol/L (22-30); Chloride 109 mmol/L (98-107); Estimated CRCL calculation 38 ml/min; Estimated Glomerular Filt Rate > 60; Glucose 79 mg/dL (65-110); Potassium 2.7 mmol/L (3.4-5.0); Sodium 133 mmol/L (137-145)
--- NOTE | 2025-06-17 02:22 | ADMGEN ---
This patient, Kasey Rodriguez, was admitted to IMU Room 201-01. Patient/family oriented to hospital policies and general routines including ID bracelet, bed and alarms, visiting hours, pain management, procedures, bathroom and other care routines, personal items, smoking policy, room service/diet, and visiting hours. Information on how to activate the Rapid Response Team has been discussed. Patient/Family are encouraged to report perceived risks to care and to ask questions if they do not understand what they are told or what they should do.
[2025-06-17] MEDS: LACTATED RINGERS 1,000 ML 150 ML IV CONT ×3 (02:32→13:31)
[2025-06-17] MEDS: POTASSIUM CHLORIDE 20 MEQ ER TABLET 40 MEQ PO (03:20)
[2025-06-17] MEDS: KCL 20 MEQ/SW 100 ML 100 ML 50 MEQ IVPB (03:21)
[2025-06-17 06:37] LABS: Hematocrit 28.2 % (37.0-47.0); Hemoglobin 9.1 g/dL (12.0-15.0); Immature Granulocyte Percent A 0.7 % (0-0.5); Lymphocytes Absolute Auto 0.55 K/mm3 (0.9-3.2); Mean Corpuscular HGB Conc 32.3 g/dl (32-36); Mean Corpuscular Hemoglobin 33.1 pg (26-34); Mean Corpuscular Volume 102.5 fl (80-100); Nucleated Red Blood Cells Absolute Auto 0.000 K/mm3 (0.0-0.012); Nucleated Red Blood Cells Perc 0.0 % (0.0-0.2); Platelet Count Result 116 k/mm3 (150-375); Red Blood Count 2.75 M/mm3 (4.2-5.4); White Blood Count 9.5 K/mm3 (4.5-10.0)
[2025-06-17] MEDS: LEVOTHYROXINE SODIUM 50 MCG TABLET PO (06:48)
[2025-06-17 06:58] LABS: Alanine Aminotransferase 25 U/L (6-35); Albumin Level 1.9 g/dL (3.5-5.1); Alkaline Phosphatase 91 U/L (38-126); Anion Gap 1 mmol/L (4-12); Aspartate Amino Transferase 46 U/L (14-36); Bilirubin,Total 1.0 mg/dL (0.2-1.3); Blood Urea Nitrogen 9 mg/dL (7-17); Calcium 7.1 mg/dL (8.4-10.2); Carbon Dioxide 24 mmol/L (22-30); Chloride 110 mmol/L (98-107); Estimated CRCL calculation 37 ml/min; Estimated Glomerular Filt Rate > 60; Glucose 75 mg/dL (65-110); Magnesium 2.2 mg/dL (1.6-2.3); Potassium 3.7 mmol/L (3.4-5.0); Sodium 135 mmol/L (137-145); Total Protein 4.2 g/dL (6.3-8.2)
[2025-06-17] MEDS: ROSUVASTATIN 5 MG TABLET PO (08:25)
--- NOTE | 2025-06-17 08:41 | PM.CNGS ---
Assessment and Plan Assessment and plan (1) Hematoma of right buttock: Code(s): S30.0XXA - Contusion of lower back and pelvis, initial encounter <Rk Collins, DO - Last Filed: 06/17/25 08:52> Status: Acute <Rk Collins, DO - Last Filed: 06/17/25 08:52> Assessment and Plan: Patient had a fall 12 days ago that resulted in the right hip hematoma. This area is soft, minimally ttp, no erythema, or skin breakdown. General surgery consulted for evaluation. Given the exam findings, we would not recommend surgical intervention. Hgb drift today likely dilutional given the volume of fluid administered and not likely to be related to her hematoma. General surgery will be available for further needs. Please see attending attestatin for further plan and updates <Rk Collins, DO - Last Filed: 06/17/25 08:52> Patient had a fall 12 days ago that resulted in the right hip hematoma. This area is soft, minimally ttp, no erythema, or skin breakdown. General surgery consulted for evaluation. Given the exam findings, we would not recommend surgical intervention. Hgb drift today likely dilutional given the volume of fluid administered and not likely to be related to her hematoma. General surgery will be available for further needs. Please see attending attestatin for further plan and updates I have personally seen and evaluated the patient today with [employer]/PA.? ? I have reviewed any new relevant radiographic and laboratory results.? I have reviewed the kirby elements of the patient's current surgical or medical problems and I have personally performed a substantive portion of the care for this patient.? I personally performed the pertinent physical exam and reviewed and confirmed the patient's medicine list.? ? I have formulated the surgical care plan and I agree with the documented note above. Patient appears to have an uncomplicated right hip hematoma in the soft tissues. There is no evidence of infection or pressure necrosis of the skin. She is not on any blood thinners. Exam reveals extensive ecchymosis but the soft large hematoma in the area of the right hip. Minimal tenderness to palpation. No need for surgical management at this time. Would only drain if the patient exhibited infection of the right hip hematoma. Over time the hematoma should liquify reabsorb. We will be available if there are any signs of infection. Otherwise disposition as per hospitalist service. <Rene Garber MD - Last Filed: 06/17/25 13:08> (2) Sepsis: Qualifiers: Sepsis acute organ dysfunction status: unspecified Sepsis type: sepsis due to unspecified organism Qualified Code(s): A41.9 - Sepsis, unspecified organism <Rk E. Collins, DO - Last Filed: 06/17/25 08:52> Code(s): A41.9 - Sepsis, unspecified organism <Rk E. Collins, DO - Last Filed: 06/17/25 08:52> Status: Acute <Rk E. Collins, DO - Last Filed: 06/17/25 08:52> (3) UTI (urinary tract infection): Qualifiers: Hematuria presence: without hematuria Urinary tract infection type: acute cystitis Qualified Code(s): N30.00 - Acute cystitis without hematuria <Rk E. Collins, DO - Last Filed: 06/17/25 08:52> Code(s): N39.0 - Urinary tract infection, site not specified <Rk E. Collins, DO - Last Filed: 06/17/25 08:52> Status: Acute <Rk E. Collins, DO - Last Filed: 06/17/25 08:52> (4) Pneumonia: Qualifiers: Laterality: left Lung location: lower lobe of lung Pneumonia type: due to unspecified organism Qualified Code(s): J18.9 - Pneumonia, unspecified organism <Rk E. Collins, DO - Last Filed: 06/17/25 08:52> Code(s): J18.9 - Pneumonia, unspecified organism <Rk E. Collins, DO - Last Filed: 06/17/25 08:52> Status: Acute <Rk E. Collins, DO - Last Filed: 06/17/25 08:52> History of Present Illness Consult details Consult date: 06/17/25 <Rk E. Collins, DO - Last Filed: 06/17/25 08:52> 06/17/25 <Rene Garber MD - Last Filed: 06/17/25 13:08> Narrative: Patient is a 75 yo f with a PMH of osteoporosis, anxiety, irritable bowel syndrome, anemia, dyslipidemia, hypothyroidism who presented to the hospital complaining of fever, chills, nausea, vomiting, and cough. She was seen on 06/05 for a fall where she suffered a forehead laceration that is healing well and a right hip hematoma. Imaging workup shows no acute bony abnormality in her right hip. Her workup showed a LLL pneumonia and a residual right gluteal hematoma. On exam, her right hip has a large amount of bruising, it is soft, minimally TTP, there is no erythema or skin breakdown. She is not on any blood thinners. Hgb drift overnight from 11.8 to 9.1. This is likely dilutional and not related to her hematoma as she had over 5 L of fluid over night. This am she is awake and alert, VSS, afebrile. <Rk Collins DO - Last Filed: 06/17/25 08:52> Review of Systems Review of Systems: All systems reviewed & are unremarkable except as noted in HPI. <Rk Collins DO - Last Filed: 06/17/25 08:52> All systems reviewed & are unremarkable except as noted in HPI and below <Rk Collins DO - Last Filed: 06/17/25 08:52> [facility] Past Medical History Medical History: Medical History Hypothyroidism (acquired) History of gastric ulcer (~09/2021) Age related osteoporosis Environmental allergies Chronic low back pain Rheumatoid arthritis with rheumatoid factor of multiple sites without organ or systems involvement Cataract Dyslipidemia Anemia Anxiety Insomnia Unspecified osteoarthritis, unspecified site Thyroid disorder IBS (irritable bowel syndrome) <Rk Collins DO - Last Filed: 06/17/25 08:52> Surgical History Surgical History: Surgical History History of cholecystectomy 1978 History of sleeve gastrectomy 1976 History of eye surgery implants-2019 History of thumb surgery bi-lateral - age med 30's History of total hysterectomy 1977 History of cataract surgery Left-04/07/2019 Right-04/22/2019 <Rk Collins DO - Last Filed: 06/17/25 08:52> Family History Family History: Family History Mother Acute myocardial infarction Rheumatoid arthritis Heart disease Thyroid disorder Father Heart disease Sibling Thyroid disorder <Rk Collins, DO - Last Filed: 06/17/25 08:52> Social History Social History: Social History Smoking status: Former smoker Tobacco type: cigarettes Second hand tobacco smoke exposure: No Smoking end date: 08/05/83 Alcohol intake: former Substance use: current Substance use type: marijuana Lack of Transportation: No Lack of Food: Never True Current Housing: I Have Housing Concerned About Future Housing: No Difficulty Paying Gas/Electric Bills: No Difficulty Paying for Meds: No Currently Unemployed: No Education: High School Diploma/GED Difficulty w/ Childcare or Family Care: No Spiritual care concerns: No <Rk Collins, DO - Last Filed: 06/17/25 08:52> Meds Home Medications and Allergies Home medications: Home Medications ?Medication ?Instructions ?Recorded ?Confirmed ?Type cholecalciferol (vitamin D3) 125 10,000 unit PO WEEKLY 02/26/22 06/17/25 History mcg (5,000 unit) capsule calcium carbonate 500 mg PO DAILY 03/05/23 06/17/25 History dicyclomine 20 mg tablet 20 mg PO TID PRN Anxiety #30 tabs 12/02/23 06/17/25 Rx levothyroxine 50 mcg tablet 50 mcg PO DAILY #90 tabs 01/09/24 06/17/25 Rx rosuvastatin 5 mg tablet 5 mg PO DAILY #90 tabs 12/14/24 06/17/25 Rx ondansetron 4 mg disintegrating 4 mg PO Q4H PRN nausea and 06/05/25 06/17/25 Rx tablet vomiting #10 tabs ascorbic acid (vitamin C) 1,000 mg 1,000 mg PO TID 06/17/25 06/17/25 History tablet,extended release (C Complex) potassium 99 mg tablet 198 mg PO TID PRN MUSCLE SPASMS 06/17/25 06/17/25 History vitamin E 268 mg (400 unit) capsule 1,072 mg PO DAILY 06/17/25 06/17/25 History <Rk Collins, DO - Last Filed: 06/17/25 08:52> Allergies/Adverse reactions: Allergies Allergy/AdvReac Type Severity Reaction Status Date / Time acetaminophen Allergy Unknown Unknown Verified 06/17/25 02:02 codeine Allergy Unknown Unknown Verified 06/17/25 02:02 ibuprofen Allergy Unknown unknown Verified 06/17/25 02:02 pregabalin Allergy Unknown Unknown Verified 06/17/25 02:02 quinine Allergy Unknown unknown Verified 06/17/25 02:02 All antidepressants Allergy Unknown Unknown Uncoded 12/02/23 11:15 <Rk Collins, DO - Last Filed: 06/17/25 08:52> Vital Signs Vital Signs - 24 hr 06/16/25 15:40 06/16/25 18:28 06/16/25 20:28 Temperature 98.8 F Pulse Rate 70 84 Respiratory Rate 14 13 Blood Pressure 141/62 H Pulse Oximetry 98 98 99 Oxygen Delivery Room Air Room Air 06/16/25 20:32 06/16/25 20:45 06/16/25 20:46 Temperature Pulse Rate 87 85 83 Respiratory Rate 11 L 13 12 Blood Pressure 137/57 L Pulse Oximetry 100 100 100 Oxygen Delivery 06/16/25 21:29 06/16/25 21:30 06/16/25 21:31 Temperature Pulse Rate 88 89 90 Respiratory Rate 14 15 20 Blood Pressure 131/70 Pulse Oximetry Oxygen Delivery 06/16/25 21:32 06/16/25 21:50 06/16/25 21:52 Temperature 97.7 F Pulse Rate 89 Respiratory Rate 16 18 Blood Pressure Pulse Oximetry Oxygen Delivery 06/16/25 22:00 06/16/25 22:13 06/16/25 22:15 Temperature Pulse Rate Respiratory Rate 19 19 16 Blood Pressure 146/129 H Pulse Oximetry Oxygen Delivery 06/16/25 22:30 06/16/25 22:31 06/16/25 22:45 Temperature Pulse Rate 117 H Respiratory Rate 19 19 17 Blood Pressure 173/95 H Pulse Oximetry Oxygen Delivery 06/16/25 23:07 06/16/25 23:15 06/16/25 23:22 Temperature Pulse Rate 115 H 115 H 112 H Respiratory Rate 17 23 H 13 Blood Pressure 136/63 Pulse Oximetry 98 Oxygen Delivery 06/16/25 23:30 06/16/25 23:31 06/16/25 23:32 Temperature Pulse Rate 108 H 107 H 114 H Respiratory Rate 15 17 17 Blood Pressure 124/107 H Pulse Oximetry 96 97 Oxygen Delivery 06/17/25 00:06 06/17/25 01:37 06/17/25 02:00 Temperature 100.8 F H 98.1 F Pulse Rate 101 H 97 Respiratory Rate 18 Blood Pressure 107/68 Pulse Oximetry 96 Oxygen Delivery 06/17/25 02:00 06/17/25 04:00 06/17/25 04:00 Temperature 98.5 F Pulse Rate 93 Respiratory Rate 16 Blood Pressure 122/60 Pulse Oximetry 98 Oxygen Delivery Room Air Room Air 06/17/25 04:00 06/17/25 06:00 06/17/25 07:44 Temperature 97.7 F Pulse Rate 107 H 83 84 Respiratory Rate 12 Blood Pressure 127/63 Pulse Oximetry 100 Oxygen Delivery <Rk E. Collins, DO - Last Filed: 06/17/25 08:52> Exam Const: General: no acute distress <Rk E. Collins, DO - Last Filed: 06/17/25 08:52> Orientation/consciousness: patient oriented x3 <Rk E. Collins, DO - Last Filed: 06/17/25 08:52> HENMT: Head: normocephalic <Rk E. Collins, DO - Last Filed: 06/17/25 08:52> Other: laceration on right forehead healing <Rk E. Collins, DO - Last Filed: 06/17/25 08:52> Eyes: General: appearance normal, both eyes and all related structures <Rk E. Collins, DO - Last Filed: 06/17/25 08:52> EOM: EOMs intact bilaterally <Rk E. Collins, DO - Last Filed: 06/17/25 08:52> Neck: Neck: normal visual inspection and no JVD <Rk E. Collins, DO - Last Filed: 06/17/25 08:52> Resp: Other: symmetric expansion, no IWOB <Rk E. Collins, DO - Last Filed: 06/17/25 08:52> Cardio: Rate: regular rate <Rk E. Collins, DO - Last Filed: 06/17/25 08:52> Rhythm: regular rhythm <Rk E. Collins, DO - Last Filed: 06/17/25 08:52> GI: Other: soft, minimal lower abdomen tenderness, ND <Rk E. Collins, DO - Last Filed: 06/17/25 08:52> Extrem: Other: right hip hematoma, large amount of bruising, soft, no erythema, no skin breakdown, no evidence of infected hematoma <Rk E. Collins, DO - Last Filed: 06/17/25 08:52> Psych: Affect: normal affect <Rk E. Collins, DO - Last Filed: 06/17/25 08:52> Attitude: cooperative <Rk E. Collins, DO - Last Filed: 06/17/25 08:52> Thought process: Normal thought process present <Rk E. Collins, DO - Last Filed: 06/17/25 08:52> Results Labs Result diagrams: 06/17/25 06:28 06/17/25 06:28 <Rk E. Collins, DO - Last Filed: 06/17/25 08:52> Labs: Abnormal lab results 06/16/25 06/16/25 06/16/25 Range/Units 18:36 21:09 23:00 RBC 3.60 L (4.2-5.4) M/mm3 Hgb 11.8 L (12.0-15.0) g/dL Hct 35.5 L (37.0-47.0) % MCV (80-100) fl RDW 16.2 H (11.5-14.5) % Plt Count 128 L (150-375) k/mm3 Immature Gran % (Auto) (0-0.5) % Neut % (Auto) (45.5-73.1) % Lymph % (Auto) (18.3-44.2) % [place] % (Auto) (2.6-8.5) % Lymph # (Auto) (0.9-3.2) K/mm3 [place] # (Auto) (0.1-0.6) K/mm3 Abs Immat Gran (auto) (0.00-0.031) K/mm3 Absolute Neuts (auto) (1.3-6.7) K/mm3 Neutrophils % (Manual) 88 H (46-73) % Lymphocytes % (Manual) 3.0 L (18-44) % Abs Neuts (Manual) 8.74 H (1.3-6.7) K/mm3 Abs Lymphs (Manual) 0.27 L (1.1-4.5) K/mm3 Sodium 134 L 136 L (137-145) mmol/L Potassium 2.0 L* 2.6 L* (3.4-5.0) mmol/L Chloride (98-107) mmol/L Carbon Dioxide 32 H (22-30) mmol/L Anion Gap 3 L (4-12) mmol/L Estimated GFR 54 L 57 L (59 - ) Glucose 121 H (65-110) mg/dL Lactic Acid 2.4 H 4.2 H* (0.7-2.0) mmol/L Calcium 8.1 L (8.4-10.2) mg/dL Magnesium 2.5 H (1.6-2.3) mg/dL Total Bilirubin 1.4 H (0.2-1.3) mg/dL AST 54 H (14-36) U/L Total Creatine Kinase 175 H (30-135) U/L Total Protein 5.4 L (6.3-8.2) g/dL Albumin 2.6 L (3.5-5.1) g/dL Urine Appearance Cloudy H (Clear) Ur Blood (Man) 1+ H (Negative) Urine Nitrate Positive H (Negative) Leukocyte Esterase Rfl 3+ H (Negative) CYNTHIA/UL Urine WBC >100 H (0-3) /hpf Urine Bacteria 4+ H /hpf 06/17/25 06/17/25 Range/Units 01:57 06:28 RBC 2.75 L (4.2-5.4) M/mm3 Hgb 9.1 L (12.0-15.0) g/dL Hct 28.2 L (37.0-47.0) % MCV 102.5 H (80-100) fl RDW 16.7 H (11.5-14.5) % Plt Count 116 L (150-375) k/mm3 Immature Gran % (Auto) 0.7 H (0-0.5) % Neut % (Auto) 83.6 H (45.5-73.1) % Lymph % (Auto) 5.8 L (18.3-44.2) % [place] % (Auto) 9.7 H (2.6-8.5) % Lymph # (Auto) 0.55 L (0.9-3.2) K/mm3 [place] # (Auto) 0.9 H (0.1-0.6) K/mm3 Abs Immat Gran (auto) 0.07 H (0.00-0.031) K/mm3 Absolute Neuts (auto) 8.0 H (1.3-6.7) K/mm3 Neutrophils % (Manual) (46-73) % Lymphocytes % (Manual) (18-44) % Abs Neuts (Manual) (1.3-6.7) K/mm3 Abs Lymphs (Manual) (1.1-4.5) K/mm3 Sodium 133 L 135 L (137-145) mmol/L Potassium 2.7 L* (3.4-5.0) mmol/L Chloride 109 H 110 H (98-107) mmol/L Carbon Dioxide (22-30) mmol/L Anion Gap 2 L 1 L (4-12) mmol/L Estimated GFR (59 - ) Glucose (65-110) mg/dL Lactic Acid (0.7-2.0) mmol/L Calcium 7.0 L 7.1 L (8.4-10.2) mg/dL Magnesium (1.6-2.3) mg/dL Total Bilirubin (0.2-1.3) mg/dL AST 46 H (14-36) U/L Total Creatine Kinase (30-135) U/L Total Protein 4.2 L (6.3-8.2) g/dL Albumin 1.9 L (3.5-5.1) g/dL Urine Appearance (Clear) Ur Blood (Man) (Negative) Urine Nitrate (Negative) Leukocyte Esterase Rfl (Negative) CYNTHIA/UL Urine WBC (0-3) /hpf Urine Bacteria /hpf Diabetes panel 06/16/25 06/16/25 06/17/25 Range/Units 18:36 23:00 01:57 Sodium 134 L 136 L 133 L (137-145) mmol/L Potassium 2.0 L* 2.6 L* 2.7 L* (3.4-5.0) mmol/L Chloride 99 104 109 H (98-107) mmol/L Carbon Dioxide 32 H 25 22 (22-30) mmol/L BUN 11 10 8 (7-17) mg/dL Creatinine 0.99 0.95 0.87 (0.7-1.0) mg/dL Glucose 121 H 77 79 (65-110) mg/dL Calcium 8.6 8.1 L 7.0 L (8.4-10.2) mg/dL AST 54 H (14-36) U/L ALT 33 (6-35) U/L Alkaline Phosphatase 119 (38-126) U/L Total Protein 5.4 L (6.3-8.2) g/dL Albumin 2.6 L (3.5-5.1) g/dL 06/17/25 Range/Units 06:28 Sodium 135 L (137-145) mmol/L Potassium 3.7 (3.4-5.0) mmol/L Chloride 110 H (98-107) mmol/L Carbon Dioxide 24 (22-30) mmol/L BUN 9 (7-17) mg/dL Creatinine 0.88 (0.7-1.0) mg/dL Glucose 75 (65-110) mg/dL Calcium 7.1 L (8.4-10.2) mg/dL AST 46 H (14-36) U/L ALT 25 (6-35) U/L Alkaline Phosphatase 91 (38-126) U/L Total Protein 4.2 L (6.3-8.2) g/dL Albumin 1.9 L (3.5-5.1) g/dL Calcium panel 06/16/25 06/16/25 06/17/25 Range/Units 18:36 23:00 01:57 Calcium 8.6 8.1 L 7.0 L (8.4-10.2) mg/dL Albumin 2.6 L (3.5-5.1) g/dL 06/17/25 Range/Units 06:28 Calcium 7.1 L (8.4-10.2) mg/dL Albumin 1.9 L (3.5-5.1) g/dL Pituitary panel 06/16/25 06/16/25 06/17/25 Range/Units 18:36 23:00 01:57 Sodium 134 L 136 L 133 L (137-145) mmol/L Potassium 2.0 L* 2.6 L* 2.7 L* (3.4-5.0) mmol/L Chloride 99 104 109 H (98-107) mmol/L Carbon Dioxide 32 H 25 22 (22-30) mmol/L BUN 11 10 8 (7-17) mg/dL Creatinine 0.99 0.95 0.87 (0.7-1.0) mg/dL Glucose 121 H 77 79 (65-110) mg/dL Calcium 8.6 8.1 L 7.0 L (8.4-10.2) mg/dL 06/17/25 Range/Units 06:28 Sodium 135 L (137-145) mmol/L Potassium 3.7 (3.4-5.0) mmol/L Chloride 110 H (98-107) mmol/L Carbon Dioxide 24 (22-30) mmol/L BUN 9 (7-17) mg/dL Creatinine 0.88 (0.7-1.0) mg/dL Glucose 75 (65-110) mg/dL Calcium 7.1 L (8.4-10.2) mg/dL Adrenal panel 06/16/25 06/16/25 06/17/25 Range/Units 18:36 23:00 01:57 Sodium 134 L 136 L 133 L (137-145) mmol/L Potassium 2.0 L* 2.6 L* 2.7 L* (3.4-5.0) mmol/L Chloride 99 104 109 H (98-107) mmol/L Carbon Dioxide 32 H 25 22 (22-30) mmol/L BUN 11 10 8 (7-17) mg/dL Creatinine 0.99 0.95 0.87 (0.7-1.0) mg/dL Glucose 121 H 77 79 (65-110) mg/dL Calcium 8.6 8.1 L 7.0 L (8.4-10.2) mg/dL Total Bilirubin 1.4 H (0.2-1.3) mg/dL AST 54 H (14-36) U/L ALT 33 (6-35) U/L Alkaline Phosphatase 119 (38-126) U/L Total Protein 5.4 L (6.3-8.2) g/dL Albumin 2.6 L (3.5-5.1) g/dL 06/17/25 Range/Units 06:28 Sodium 135 L (137-145) mmol/L Potassium 3.7 (3.4-5.0) mmol/L Chloride 110 H (98-107) mmol/L Carbon Dioxide 24 (22-30) mmol/L BUN 9 (7-17) mg/dL Creatinine 0.88 (0.7-1.0) mg/dL Glucose 75 (65-110) mg/dL Calcium 7.1 L (8.4-10.2) mg/dL Total Bilirubin 1.0 (0.2-1.3) mg/dL AST 46 H (14-36) U/L ALT 25 (6-35) U/L Alkaline Phosphatase 91 (38-126) U/L Total Protein 4.2 L (6.3-8.2) g/dL Albumin 1.9 L (3.5-5.1) g/dL All other labs normal. <Rk Collins, DO - Last Filed: 06/17/25 08:52>
--- NOTE | 2025-06-17 09:28 | PCPTNOTE ---
attempted PT GIA kirk stated not to go in room because the pt because she is crying and anxious, RN giving her ativan and told PT to come back in an hour, will follow
[2025-06-17] MEDS: LORazepam (*CRX) 0.5 MG TABLET PO ×2 (09:31→18:42)
[2025-06-17] MEDS: CALCIUM CARBONATE (TUMS) 500 MG (200 MG ELEMENTAL) PO (09:31)
[2025-06-17] MEDS: VITAMIN E 400 UNIT CAPSULE 1600 UNIT PO (09:31)
[2025-06-17] MEDS: ASCORBIC ACID 500 MG TABLET 1000 MG PO ×3 (09:32→16:05)
--- NOTE | 2025-06-17 13:27 | P.PNIM_ITS ---
Progress Note: A&P Assessment and Plan (1) UTI (urinary tract infection): Qualifiers: Hematuria presence: without hematuria Urinary tract infection type: acute cystitis Qualified Code(s): N30.00 - Acute cystitis without hematuria Code(s): N39.0 - Urinary tract infection, site not specified Status: Acute (2) Sepsis: Qualifiers: Sepsis acute organ dysfunction status: unspecified Sepsis type: sepsis due to unspecified organism Qualified Code(s): A41.9 - Sepsis, unspecified organism Code(s): A41.9 - Sepsis, unspecified organism Status: Acute (3) Weakness: Code(s): R53.1 - Weakness Status: Acute (4) Pneumonia: Qualifiers: Laterality: left Lung location: lower lobe of lung Pneumonia type: due to unspecified organism Qualified Code(s): J18.9 - Pneumonia, unspecified organism Code(s): J18.9 - Pneumonia, unspecified organism Status: Acute (5) Hematoma of right buttock: Code(s): S30.0XXA - Contusion of lower back and pelvis, initial encounter Status: Acute Plan i have a virus, deathly sick presenting complaints with cough, feverish and chills, chest x-ray is concerning for pneumonia and patient is being treated with Ceftriaxone and Zithromax for possible CAP. patient also complained of swelling along right buttock s/p fall several days ago, seen by surgery service suspect patient has hematoma recommended conservative management and observation. patient very anxious and keep requesting antianxiety meds, will constul psychiatrist for further recommendation. will have PT/OT evaluate the patient and further recommendation to follow. Patient presents with multiple symptoms, evaluation reveals left lower lobe pneumonia, UTI. Continue ceftriaxone 1 g Q 24 hours and azithromycin. Quad viral screen negative, check full respiratory pathogen panel. Follow-up urine and blood cultures. Check Legionella, mycoplasma, strep pneumococcus antigen. Maintenance fluids. Hypokalemia replaced. Continue to replace and recheck. Lactic acidosis on admission 2.4, increasing to 4.2 after fluids however reportedly the sample was not tested until at least 40 minutes, possibly erroneously. Her blood pressure at that time was stable. A 3rd repeat was showing normal lactic acid. Patient is malnourished from over a week of being ill. Dietary supplements. Dietitian consultation. Resume [employer] levothyroxine. General surgery consulted for large right gluteal muscle hematoma. Does not appear infected, no compartment syndrome, neurovascular exam right lower extremity intact. Full code. SCDs. Regular diet. Fluids. Fall precaution, ambulate with assistance, PT/OT evaluations. Subjective Date/time seen: 06/17/25 13:27 Interval history: i have a virus, deathly sick presenting complaints with cough, feverish and chills, chest x-ray is concerning for pneumonia and patient is being treated with Ceftriaxone and Zithromax for possible CAP. patient also complained of swelling along right buttock s/p fall several days ago, seen by surgery service suspect patient has hematoma recommended conservative management and observation. patient very anxious and keep requesting antianxiety meds, will constul psychiatrist for further recommendation. will have PT/OT evaluate the patient and further recommendation to follow. Review of Systems Review of Systems: All systems reviewed & are unremarkable except as noted in HPI and below (Subjective) Exam Narrative: Patient is comfortable, NAD HEENT: eyes are clear and none icteric LUNGS:CTA HEART: RR S1S2 ABD: BS+, Soft and nontender Lower extremities: no edema SKIN: nonjaundiced Neuro: grossly intact. Objective Data Vital Signs Vital Signs: Vital Signs - 24 hr 06/16/25 15:40 06/16/25 18:28 06/16/25 20:28 Temperature 37.1 C Pulse Rate 70 84 Respiratory Rate 14 13 Blood Pressure 141/62 H Pulse Oximetry 98 98 99 Oxygen Delivery Room Air Room Air 06/16/25 20:32 06/16/25 20:45 06/16/25 20:46 Temperature Pulse Rate 87 85 83 Respiratory Rate 11 L 13 12 Blood Pressure 137/57 L Pulse Oximetry 100 100 100 Oxygen Delivery 06/16/25 21:29 06/16/25 21:30 06/16/25 21:31 Temperature Pulse Rate 88 89 90 Respiratory Rate 14 15 20 Blood Pressure 131/70 Pulse Oximetry Oxygen Delivery 06/16/25 21:32 06/16/25 21:50 06/16/25 21:52 Temperature 36.5 C Pulse Rate 89 Respiratory Rate 16 18 Blood Pressure Pulse Oximetry Oxygen Delivery 06/16/25 22:00 06/16/25 22:13 06/16/25 22:15 Temperature Pulse Rate Respiratory Rate 19 19 16 Blood Pressure 146/129 H Pulse Oximetry Oxygen Delivery 06/16/25 22:30 06/16/25 22:31 06/16/25 22:45 Temperature Pulse Rate 117 H Respiratory Rate 19 19 17 Blood Pressure 173/95 H Pulse Oximetry Oxygen Delivery 06/16/25 23:07 06/16/25 23:15 06/16/25 23:22 Temperature Pulse Rate 115 H 115 H 112 H Respiratory Rate 17 23 H 13 Blood Pressure 136/63 Pulse Oximetry 98 Oxygen Delivery 06/16/25 23:30 06/16/25 23:31 06/16/25 23:32 Temperature Pulse Rate 108 H 107 H 114 H Respiratory Rate 15 17 17 Blood Pressure 124/107 H Pulse Oximetry 96 97 Oxygen Delivery 06/17/25 00:06 06/17/25 01:37 06/17/25 02:00 Temperature 38.2 C H 36.7 C Pulse Rate 101 H 97 Respiratory Rate 18 Blood Pressure 107/68 Pulse Oximetry 96 Oxygen Delivery 06/17/25 02:00 06/17/25 04:00 06/17/25 04:00 Temperature 36.9 C Pulse Rate 93 Respiratory Rate 16 Blood Pressure 122/60 Pulse Oximetry 98 Oxygen Delivery Room Air Room Air 06/17/25 04:00 06/17/25 06:00 06/17/25 07:44 Temperature 36.5 C Pulse Rate 107 H 83 84 Respiratory Rate 12 Blood Pressure 127/63 Pulse Oximetry 100 Oxygen Delivery 06/17/25 08:00 06/17/25 09:52 06/17/25 10:00 Temperature Pulse Rate 85 84 Respiratory Rate Blood Pressure Pulse Oximetry Oxygen Delivery Room Air 06/17/25 11:28 06/17/25 12:00 Temperature 36.7 C Pulse Rate 81 84 Respiratory Rate 16 Blood Pressure 119/60 Pulse Oximetry 99 Oxygen Delivery Intake/Output Intake/Output: Intake & Output 06/14/25 06/15/25 06/16/25 06/17/25 23:59 23:59 23:59 23:59 Intake Total 1300 3622.5 Balance 1300 3622.5 Meds/Results Medications: Active Medications Generic Name Dose Route Start Last Admin Trade Name Freq PRN Reason Stop Dose Admin Acetaminophen 650 mg 06/17/25 00:38 Acetaminophen 325 Mg Tablet PO Q4H PRN Mild Pain (1-3) or Fever Ascorbic Acid 1,000 mg 06/17/25 09:00 06/17/25 12:14 Ascorbic Acid 500 Mg Tablet PO 07/17/25 08:59 1,000 mg TID LAKEISHA Administration Calcium Carbonate 500 mg 06/17/25 09:00 06/17/25 09:31 Calcium Carbonate (Tums) 500 Mg (200 Mg Elemental) PO 500 mg DAILY LAKEISHA Administration Dextrose 12.5 gm 06/17/25 00:38 Dextrose 50% 25 Gm/50 Ml Syringe IV PUSH PRN PRN Hypoglycemia Protocol Dicyclomine HCl 20 mg 06/17/25 08:28 Dicyclomine Hcl 10 Mg Capsule PO TID PRN Anxiety Glucose 15 gm 06/17/25 00:38 Glucose Oral Gel 15 Gm Of Glucse In 37.5 Gm Tube PO PRN PRN Hypoglycemia Protocol Ceftriaxone Sodium 1 gm/ 50 mls @ 100 mls/hr 06/17/25 20:00 Sodium Chloride IVPB Q24H LAKEISHA Azithromycin 500 mg/ Sodium 250 mls @ 250 mls/hr 06/17/25 21:00 Chloride IVPB 06/20/25 21:59 Q24H LAKEISHA Lactated Ringer's 1,000 mls @ 150 mls/hr 06/17/25 00:40 06/17/25 08:25 Lr - Lactated Ringers Iv IV CONT 150 mls/hr .Q6H40M LAKEISHA Administration Dextrose 1,000 mls @ 100 mls/hr 06/17/25 00:38 Dextrose 5% 1,000 Ml IVPB PRN PRN Hypoglycemia Protocol Levothyroxine Sodium 50 mcg 06/17/25 06:30 06/17/25 06:48 Levothyroxine Sodium 50 Mcg Tablet PO 50 mcg DAILY@0630 [facility] Administration Non-Formulary Medication 1 each 06/17/25 08:41 Nonformulary Nutritional Supplement XX 06/18/25 08:40 PRN PRN PROTOCOL Ondansetron HCl 4 mg 06/17/25 00:38 Ondansetron Inj 4 Mg/2 Ml Vial IV PUSH Q4H PRN Nausea Ondansetron HCl 4 mg 06/17/25 08:28 Ondansetron Hcl Odt 4 Mg Tablet PO Q4H PRN Nausea And Vomiting Rosuvastatin Calcium 5 mg 06/17/25 09:00 06/17/25 08:25 Rosuvastatin 5 Mg Tablet PO 5 mg DAILY LAKEISHA Administration Vitamin D 250 mcg 06/22/25 09:00 Cholecalciferol (Vitamin D3) 125 Mcg (5,000 Units) Tablet PO Q7D [facility] Vitamin E 1,600 unit 06/17/25 09:00 06/17/25 09:31 Vitamin E 400 Unit Capsule PO 1,600 unit DAILY LAKEISHA Administration Radiology Results: ITS Impressions Chest X-Ray 06/16/25 17:28 Impression: Small left lower lobe pneumonia Abdomen/Pelvis CT 06/16/25 20:15 IMPRESSION: No acute abnormality is noted in the abdomen and pelvis. Large right gluteal muscle with increased density suggestive of a intramuscular hematoma. Correlate clinically. All CT scans at this facility are performed using low dose modulation techniques as appropriate to perform exam including the following: automated exposure control; use of iterative reconstruction technique; adjustment of the mA and/or kV according to patient size (this includes techniques or standardized protocols for targeted exams where dose is matched to indication/reason for exam). Labs Labs: Laboratory Results - last 24 hr 06/16/25 06/16/25 06/16/25 18:36 21:09 23:00 WBC 9.3 RBC 3.60 L Hgb 11.8 L Hct 35.5 L MCV 98.6 MCH 32.8 MCHC 33.2 RDW 16.2 H Plt Count 128 L MPV 9.7 Immature Gran % (Auto) Not Reportable Neut % (Auto) Not Reportable Lymph % (Auto) Not Reportable [place] % (Auto) Not Reportable Eos % (Auto) Not Reportable Baso % (Auto) Not Reportable Lymph # (Auto) Not Reportable [place] # (Auto) Not Reportable Eos # (Auto) Not Reportable Baso # (Auto) Not Reportable Abs Immat Gran (auto) Not Reportable Absolute Neuts (auto) Not Reportable Absolute Nucleated RBC Not Reportable Total Counted 100 Neutrophils % (Manual) 88 H Band Neutrophils % 6 Lymphocytes % (Manual) 3.0 L Monocytes % (Manual) 3 Nucleated RBC % Not Reportable Abs Neuts (Manual) 8.74 H Abs Lymphs (Manual) 0.27 L Abs Monocytes (Manual) 0.27 Platelet Estimate Decreased Anisocytosis 2+ Schistocytes None seen PT 12.9 INR 1.0 APTT 29.4 Sodium 134 L 136 L Potassium 2.0 L* 2.6 L* Chloride 99 104 Carbon Dioxide 32 H 25 Anion Gap 3 L 7 BUN 11 10 Creatinine 0.99 0.95 Estim Creat Clear Calc Not Reportable Not Reportable Estimated GFR 54 L 57 L Glucose 121 H 77 Lactic Acid 2.4 H 4.2 H* Calcium 8.6 8.1 L Magnesium 2.5 H Total Bilirubin 1.4 H AST 54 H ALT 33 Alkaline Phosphatase 119 Total Creatine Kinase 175 H Total Protein 5.4 L Albumin 2.6 L Lipase 26 Urine Color Yellow Urine Appearance Cloudy H Urine pH 6.5 Ur Specific [place] 1.020 Urine Protein Trace Urine Glucose (UA) Negative Urine Ketones Negative Ur Blood (Man) 1+ H Urine Nitrate Positive H Urine Bilirubin Negative Urine Urobilinogen 1.0 Add Ur Microanalysis Reviewed Leukocyte Esterase Rfl 3+ H Urine RBC 0-2 Urine WBC >100 H Ur Squamous Epith Cells None seen Urine Bacteria 4+ H Urine Casts 0-2 Nasal RSV Type A (PCR) Nasal RSV Type B (PCR) Chlamy pneumoniae PCR Adenovirus DNA Human Bocavirus (MARISOL) Coronavirus Type OC43 Coronavirus Type HKU1 Coronavirus Type 229E Coronavirus Type NL63 Human Metapneumovir PCR Influenza A (RT-PCR) Negative Influenza A (PCR) Influenza A (H1) RNA Influenza A (H3) PCR Influenza B (RT-PCR) Negative M. pneumoniae DNA Parainfluenza PCR Parainfluenza 2 (PCR) Parainfluenza 3 RNA (PCR) Parainfluenza 4 (PCR) RSV (RT-PCR) Negative Rhino/Enterovirus (MARISOL) SARS-CoV-2 RNA (RT-PCR) Negative Influenza Type B (PCR) Misc Test Comment 06/17/25 06/17/25 06/17/25 01:57 01:58 06:28 WBC 9.5 RBC 2.75 L Hgb 9.1 L Hct 28.2 L MCV 102.5 H MCH 33.1 MCHC 32.3 RDW 16.7 H Plt Count 116 L MPV 10.0 Immature Gran % (Auto) 0.7 H Neut % (Auto) 83.6 H Lymph % (Auto) 5.8 L [place] % (Auto) 9.7 H Eos % (Auto) 0.0 Baso % (Auto) 0.2 Lymph # (Auto) 0.55 L [place] # (Auto) 0.9 H Eos # (Auto) 0.0 Baso # (Auto) 0.0 Abs Immat Gran (auto) 0.07 H Absolute Neuts (auto) 8.0 H Absolute Nucleated RBC 0.000 Total Counted Neutrophils % (Manual) Band Neutrophils % Lymphocytes % (Manual) Monocytes % (Manual) Nucleated RBC % 0.0 Abs Neuts (Manual) Abs Lymphs (Manual) Abs Monocytes (Manual) Platelet Estimate Anisocytosis Schistocytes PT INR APTT Sodium 133 L 135 L Potassium 2.7 L* 3.7 Chloride 109 H 110 H Carbon Dioxide 22 24 Anion Gap 2 L 1 L BUN 8 9 Creatinine 0.87 0.88 Estim Creat Clear Calc 38 37 Estimated GFR > 60 > 60 Glucose 79 75 Lactic Acid 0.7 Calcium 7.0 L 7.1 L Magnesium 2.2 Total Bilirubin 1.0 AST 46 H ALT 25 Alkaline Phosphatase 91 Total Creatine Kinase Total Protein 4.2 L Albumin 1.9 L Lipase Urine Color Urine Appearance Urine pH Ur Specific [place] Urine Protein Urine Glucose (UA) Urine Ketones Ur Blood (Man) Urine Nitrate Urine Bilirubin Urine Urobilinogen Add Ur Microanalysis Leukocyte Esterase Rfl Urine RBC Urine WBC Ur Squamous Epith Cells Urine Bacteria Urine Casts Nasal RSV Type A (PCR) Nasal RSV Type B (PCR) Chlamy pneumoniae PCR Adenovirus DNA Human Bocavirus (MARISOL) Coronavirus Type OC43 Coronavirus Type HKU1 Coronavirus Type 229E Coronavirus Type NL63 Human Metapneumovir PCR Influenza A (RT-PCR) Influenza A (PCR) Influenza A (H1) RNA Influenza A (H3) PCR Influenza B (RT-PCR) M. pneumoniae DNA Parainfluenza PCR Parainfluenza 2 (PCR) Parainfluenza 3 RNA (PCR) Parainfluenza 4 (PCR) RSV (RT-PCR) Rhino/Enterovirus (MARISOL) SARS-CoV-2 RNA (RT-PCR) Influenza Type B (PCR) [facility] [place] Test Comment 06/17/25 06:49 WBC RBC Hgb Hct MCV MCH MCHC RDW Plt Count MPV Immature Gran % (Auto) Neut % (Auto) Lymph % (Auto) [place] % (Auto) Eos % (Auto) Baso % (Auto) Lymph # (Auto) [place] # (Auto) Eos # (Auto) Baso # (Auto) Abs Immat Gran (auto) Absolute Neuts (auto) Absolute Nucleated RBC Total Counted Neutrophils % (Manual) Band Neutrophils % Lymphocytes % (Manual) Monocytes % (Manual) Nucleated RBC % Abs Neuts (Manual) Abs Lymphs (Manual) Abs Monocytes (Manual) Platelet Estimate Anisocytosis Schistocytes PT INR APTT Sodium Potassium Chloride Carbon Dioxide Anion Gap BUN Creatinine Estim Creat Clear Calc Estimated GFR Glucose Lactic Acid Calcium Magnesium Total Bilirubin AST ALT Alkaline Phosphatase Total Creatine Kinase Total Protein Albumin Lipase Urine Color Urine Appearance Urine pH Ur Specific [place] Urine Protein Urine Glucose (UA) Urine Ketones Ur Blood (Man) Urine Nitrate Urine Bilirubin Urine Urobilinogen Add Ur Microanalysis Leukocyte Esterase Rfl Urine RBC Urine WBC Ur Squamous Epith Cells Urine Bacteria Urine Casts Nasal RSV Type A (PCR) Cancelled Nasal RSV Type B (PCR) Cancelled Chlamy pneumoniae PCR Cancelled Adenovirus DNA Cancelled Human Bocavirus (MARISOL) Cancelled Coronavirus Type OC43 Cancelled Coronavirus Type HKU1 Cancelled Coronavirus Type 229E Cancelled Coronavirus Type NL63 Cancelled Human Metapneumovir PCR Cancelled Influenza A (RT-PCR) Influenza A (PCR) Cancelled Influenza A (H1) RNA Cancelled Influenza A (H3) PCR Cancelled Influenza B (RT-PCR) M. pneumoniae DNA Cancelled Parainfluenza PCR Cancelled Parainfluenza 2 (PCR) Cancelled Parainfluenza 3 RNA (PCR) Cancelled Parainfluenza 4 (PCR) Cancelled RSV (RT-PCR) Rhino/Enterovirus (MARISOL) Cancelled SARS-CoV-2 RNA (RT-PCR) Cancelled Influenza Type B (PCR) Cancelled Misc Test Comment Cancelled
[2025-06-17] MEDS: ACETAMINOPHEN 325 MG TABLET 650 MG PO (18:37)
[2025-06-17] MEDS: cefTRIAXone 1 GM in SODIUM CHLORIDE 0.9% IV 50 ML 100 ML IVPB (20:27)
[2025-06-17] MEDS: AZITHROMYCIN IV 500 MG in SODIUM CHLORIDE 0.9% IV 250 ML IVPB (21:26)
[2025-06-18] MEDS: LACTATED RINGERS 1,000 ML 150 ML IV CONT ×2 (00:32→08:04)
[2025-06-18 04:14] LABS: Hematocrit 33.8 % (37.0-47.0); Hemoglobin 10.4 g/dL (12.0-15.0); Immature Platelet Fraction Pct 4.6 % (0.9-11.2); Mean Corpuscular HGB Conc 30.8 g/dl (32-36); Mean Corpuscular Hemoglobin 32.8 pg (26-34); Mean Corpuscular Volume 106.6 fl (80-100); Red Blood Count 3.17 M/mm3 (4.2-5.4); White Blood Count 5.8 K/mm3 (4.5-10.0)
[2025-06-18 04:19] LABS: Platelet Count Result 60 k/mm3 (150-375)
[2025-06-18] MEDS: ACETAMINOPHEN 325 MG TABLET 650 MG PO ×4 (04:29→20:17)
[2025-06-18 04:30] LABS: Anion Gap 2 mmol/L (4-12); Blood Urea Nitrogen 7 mg/dL (7-17); Calcium 7.3 mg/dL (8.4-10.2); Carbon Dioxide 22 mmol/L (22-30); Chloride 111 mmol/L (98-107); Estimated CRCL calculation 42 ml/min; Estimated Glomerular Filt Rate > 60; Glucose 67 mg/dL (65-110); Magnesium 2.4 mg/dL (1.6-2.3); Potassium 3.1 mmol/L (3.4-5.0); Sodium 135 mmol/L (137-145)
[2025-06-18] MEDS: LEVOTHYROXINE SODIUM 50 MCG TABLET PO (06:03)
--- NOTE | 2025-06-18 07:04 | WPDCNPSYCH ---
Assessment and Plan Assessment and plan (1) Generalized anxiety disorder: Code(s): F41.1 - Generalized anxiety disorder Status: Acute (2) Weakness: Code(s): R53.1 - Weakness Status: Acute Plan Patient presenting with acute on chronic exacerbation of anxiety in context of social stressors ('s declining health). Appears that her weakness is related to poor oral intake and appetite as a result of heightened anxiety. Historically, patient has tried several antidepressants for anxiety management, which were not effective or caused side effects. Regardless, antidepressant therapy can take up to 6-8 weeks for full efficacy to improve anxious symptoms. She was recently discharged with a script for Valium, which patient reports was effective at managing her symptoms and she was able to eat. Discussed in depth risks associated with benzodiazepine use, particularity in older adult population (cognitive blunting, falls, respiratory depression) and close monitoring of such medication. Recommendations: -May utilize Valium 2mg BID PRN for anxiety management, suspect this will result in improved appetite and weakness. 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 -Recommended she follow up with psychiatry on outpatient basis for fpc medication management. HPI Data of Consult Date/Time: 06/18/25 07:04 Requesting Physician: Steff Antonio MD Primary Care Provider: Liz Cohen M.D. Consult Narrative Narrative: Kasey Rodriguez is a 75 year old female admitted on 06/17/2025 for UTI, sepsis, generalized weakness. She has a documented psychiatric history of anxiety, which psychiatry was consulted to help manage. Kasey is calm and cooperative, A/O x 4 during interview this morning, although she is visibly anxious and tearful throughout exam. She reports a longstanding history of anxiety, which she reports she has been treated for with several antidepressants in the past, along with alprazolam and Valium. Her anxiety has since worsened over the past month due to her 's deteriorating health with cancer. She experiences excessive worry, difficulty with overthinking, poor appetite as a result of feeling anxious. Attributes her recent increased weakness to poor appetite and decreased oral intake at home. Notably, she had a fall on 06/05 at home as a result of her weakness and was discharged home with a short term script of Valium, which Kasey reports was effective at managing her anxiety symptoms and she was able to eat and drink normally while taking this. She states her primary care is not comfortable prescribing her controlled medication for anxiety and has recommended she follow up with a psychiatrist, which she has not yet done. Reportedly has seen psychiatry in the past and has been on antidepressants for anxiety, although unable to call which specific antidepressants but recalls they were not effective for her and many caused side effects. She denies significant depression, denies suicidal ideation or history of suicide attempts. She has never been admitted inpatient for behavioral health reasons historically. Sleep is decent, reports she often isolates to bed at home secondary to her anxiety and weakness. Review of Systems Psychiatric: Psychiatric: Reports anxiety and Reports change in appetite PMFSH Past Medical History Medical History (Updated 06/18/25 @ 07:15 by Michelle Macedo APRN) Generalized anxiety disorder Hypothyroidism (acquired) History of gastric ulcer (~09/2021) Age related osteoporosis Environmental allergies Chronic low back pain Rheumatoid arthritis with rheumatoid factor of multiple sites without organ or systems involvement Cataract Dyslipidemia Anemia Anxiety Insomnia Unspecified osteoarthritis, unspecified site Thyroid disorder IBS (irritable bowel syndrome) Surgical History Surgical History History of cholecystectomy 1978 History of sleeve gastrectomy 1976 History of eye surgery implants-2018 History of thumb surgery bi-lateral - age med 30's History of total hysterectomy 1976 History of cataract surgery Left-04/07/2019 Right-04/22/2019 Family History Family History Mother Acute myocardial infarction Rheumatoid arthritis Heart disease Thyroid disorder Father Heart disease Sibling Thyroid disorder Social History Social History Smoking status: Former smoker Tobacco type: cigarettes Second hand tobacco smoke exposure: No Smoking end date: 08/05/83 Alcohol intake: former Substance use: current Substance use type: marijuana Lack of Transportation: No Lack of Food: Never True Current Housing: I Have Housing Concerned About Future Housing: No Difficulty Paying Gas/Electric Bills: No Difficulty Paying for Meds: No Currently Unemployed: No Education: High School Diploma/GED Difficulty w/ Childcare or Family Care: No Spiritual care concerns: No Meds Home Medications and Allergies Home Medications ?Medication ?Instructions ?Recorded ?Confirmed ?Type cholecalciferol (vitamin D3) 125 10,000 unit PO WEEKLY 02/26/22 06/17/25 History mcg (5,000 unit) capsule calcium carbonate 500 mg PO DAILY 03/05/23 06/17/25 History dicyclomine 20 mg tablet 20 mg PO TID PRN Anxiety #30 tabs 12/02/23 06/17/25 Rx levothyroxine 50 mcg tablet 50 mcg PO DAILY #90 tabs 01/09/24 06/17/25 Rx rosuvastatin 5 mg tablet 5 mg PO DAILY #90 tabs 12/14/24 06/17/25 Rx ondansetron 4 mg disintegrating 4 mg PO Q4H PRN nausea and 06/05/25 06/17/25 Rx tablet vomiting #10 tabs ascorbic acid (vitamin C) 1,000 mg 1,000 mg PO TID 06/17/25 06/17/25 History tablet,extended release (C Complex) potassium 99 mg tablet 198 mg PO TID PRN MUSCLE SPASMS 06/17/25 06/17/25 History vitamin E 268 mg (400 unit) capsule 1,072 mg PO DAILY 06/17/25 06/17/25 History Allergies Allergy/AdvReac Type Severity Reaction Status Date / Time acetaminophen Allergy Unknown Unknown Verified 06/17/25 02:02 codeine Allergy Unknown Unknown Verified 06/17/25 02:02 ibuprofen Allergy Unknown unknown Verified 06/17/25 02:02 pregabalin Allergy Unknown Unknown Verified 06/17/25 02:02 quinine Allergy Unknown unknown Verified 06/17/25 02:02 All antidepressants Allergy Unknown Unknown Uncoded 12/02/23 11:15 Vital Signs Vital Signs - 24 hr 06/17/25 07:44 06/17/25 08:00 06/17/25 09:52 Temperature 97.7 F Pulse Rate 84 85 Respiratory Rate 12 Blood Pressure 127/63 Pulse Oximetry 100 Oxygen Delivery Room Air 06/17/25 10:00 06/17/25 11:28 06/17/25 12:00 Temperature 98.0 F Pulse Rate 84 81 84 Respiratory Rate 16 Blood Pressure 119/60 Pulse Oximetry 99 Oxygen Delivery 06/17/25 14:00 06/17/25 15:58 06/17/25 16:00 Temperature 97.6 F Pulse Rate 92 87 87 Respiratory Rate 16 Blood Pressure 125/63 Pulse Oximetry 100 Oxygen Delivery 06/17/25 20:00 06/17/25 23:58 Temperature 99.5 F 98.3 F Pulse Rate 91 93 Respiratory Rate 20 16 Blood Pressure 127/66 165/93 H Pulse Oximetry 98 100 Oxygen Delivery Exam Psych: Appearance: grossly normal Mental Status: mental status grossly normal Speech and movement: Clear speech present Affect: Other affect and mood findings present (anxious, tearful ) Attitude: cooperative Thought process: Normal thought process present Thought content: Yes Normal thought content present Insight: Fair insight present (Psych) Judgement: Fair judgement present (Psych) Results Labs 06/18/25 03:57 06/18/25 03:57 Labs: Short CBC 06/18/25 Range/Units 03:57 WBC 5.8 (4.5-10.0) K/mm3 Hgb 10.4 L (12.0-15.0) g/dL Hct 33.8 L (37.0-47.0) % Plt Count 60 L (150-375) k/mm3 BMP 06/18/25 03:57 Sodium 135 L Potassium 3.1 L Chloride 111 H Carbon Dioxide 22 BUN 7 Creatinine 0.78 Glucose 67 Calcium 7.3 L
[2025-06-18 08:00] VITALS: BP 122/58; PULSE 92; RESP 22; TEMP 37.1; O2SAT 97
[2025-06-18] MEDS: ROSUVASTATIN 5 MG TABLET PO (08:05)
[2025-06-18] MEDS: VITAMIN E 400 UNIT CAPSULE 1600 UNIT PO (08:05)
[2025-06-18] MEDS: ASCORBIC ACID 500 MG TABLET 1000 MG PO ×3 (08:05→17:01)
[2025-06-18] MEDS: CALCIUM CARBONATE (TUMS) 500 MG (200 MG ELEMENTAL) PO (08:05)
--- NOTE | 2025-06-18 10:42 | PC.NURSE ---
Pt transferred to room 306 bed 1. Report given to GIA Patel.
--- NOTE | 2025-06-18 11:08 | ADMGEN ---
This patient, Kasey Rodriguez, was admitted to [facility] Surg Room 306-01. Patient/family oriented to hospital policies and general routines including ID bracelet, bed and alarms, visiting hours, pain management, procedures, bathroom and other care routines, personal items, smoking policy, room service/diet, and visiting hours. Information on how to activate the Rapid Response Team has been discussed. Patient/Family are encouraged to report perceived risks to care and to ask questions if they do not understand what they are told or what they should do. received report from klaudia
[2025-06-18] MEDS: POTASSIUM CHLORIDE INJ 40 MEQ in SODIUM CHLORIDE 0.9% IV 500 ML 130 MEQ IVPB ×2 (11:49→23:34)
--- NOTE | 2025-06-18 13:52 | PM.IMPN ---
Progress Note: A&P Assessment and Plan (1) UTI (urinary tract infection): Qualifiers: Hematuria presence: without hematuria Urinary tract infection type: acute cystitis Qualified Code(s): N30.00 - Acute cystitis without hematuria Code(s): N39.0 - Urinary tract infection, site not specified Status: Acute (2) Sepsis: Qualifiers: Sepsis acute organ dysfunction status: unspecified Sepsis type: sepsis due to unspecified organism Qualified Code(s): A41.9 - Sepsis, unspecified organism Code(s): A41.9 - Sepsis, unspecified organism Status: Acute (3) Weakness: Code(s): R53.1 - Weakness Status: Acute (4) Pneumonia: Qualifiers: Laterality: left Lung location: lower lobe of lung Pneumonia type: due to unspecified organism Qualified Code(s): J18.9 - Pneumonia, unspecified organism Code(s): J18.9 - Pneumonia, unspecified organism Status: Acute (5) Hematoma of right buttock: Code(s): S30.0XXA - Contusion of lower back and pelvis, initial encounter Status: Acute Plan This is a 75-year-old female who presented with cough fever chills lower abdominal pain ongoing for a couple weeks. Also had a fall on 06/05/2025 and had hematoma on right buttock area. Evaluation at that time with CT head and cervical spine x-ray and rib and hip was negative for any bony injuries. General surgery consulted for a right buttock hematoma code submitted managed On ED evaluation she was mildly febrile 100.8 sinus tachycardia EKG with sinus rhythm QTC 315. WBC 9.3 hemoglobin 11.8 platelet 128 neutrophilia INR 1 sodium 134 potassium 2 serum creatinine 0.9 glucose 121 lactic acid 2.4 total bilirubin 1.4 AST 54 urinalysis positive for greater than 100 WBC bacteria leukocyte esterase and nitrate. Blood culture x2 was obtained which came back positive for Gram-negative padmaja. Patient had a chest x-ray which demonstrated left lower lobe pneumonia. Patient has been started on ceftriaxone and azithromycin. Quad viral screen was negative. Bacteremia with switch ceftriaxone to 2 g daily UTI Left lower lobe pneumonia Thrombocytopenia likely due to underlying sepsis and bacteremia continue to monitor Right buttock intramuscular hematoma Severe hypokalemia Mild lactic acidosis Hypothyroidism on levothyroxine Full code. DVT prophylaxis SCDs. Subjective Date/time seen: 06/18/25 13:52 Interval history: No overnight events. Feels anxious. Right buttock hematoma. Patient presented with cough fever and chills. Chest x-ray with pneumonia. Review of Systems Review of Systems: All systems reviewed & are unremarkable except as noted in HPI and below (Subjective) Exam Narrative: Patient is comfortable, NAD HEENT: eyes are clear and none icteric LUNGS:CTA HEART: RR S1S2 ABD: BS+, Soft and nontender Lower extremities: no edema right buttock hematoma noted SKIN: nonjaundiced Neuro: grossly intact. Objective Data Vital Signs Vital Signs: Vital Signs - 24 hr 06/17/25 14:00 06/17/25 15:58 06/17/25 16:00 Temperature 97.6 F Pulse Rate 92 87 87 Respiratory Rate 16 Blood Pressure 125/63 Pulse Oximetry 100 Oxygen Delivery 06/17/25 20:00 06/17/25 23:58 06/18/25 08:00 Temperature 99.5 F 98.3 F 98.7 F Pulse Rate 91 93 92 Respiratory Rate 20 16 22 H Blood Pressure 127/66 165/93 H 122/58 L Pulse Oximetry 98 100 97 Oxygen Delivery 06/18/25 11:06 06/18/25 11:53 Temperature Pulse Rate Respiratory Rate Blood Pressure Pulse Oximetry Oxygen Delivery Room Air Room Air Intake/Output Intake/Output: Intake & Output 06/15/25 06/16/25 06/17/25 06/18/25 23:59 23:59 23:59 23:59 Intake Total 1300 5927.5 2512 Output Total 750 1500 Balance 1300 5177.5 1012 Meds/Results Medications: Active Medications Generic Name Dose Route Start Last Admin Trade Name Darrelq PRN Reason Stop Dose Admin Acetaminophen 650 mg 06/17/25 00:38 06/18/25 09:27 Acetaminophen 325 Mg Tablet PO 650 mg Q4H PRN Administration Mild Pain (1-3) or Fever Ascorbic Acid 1,000 mg 06/17/25 09:00 06/18/25 12:24 Ascorbic Acid 500 Mg Tablet PO 07/17/25 08:59 1,000 mg TID [facility] Administration Calcium Carbonate 500 mg 06/17/25 09:00 06/18/25 08:05 Calcium Carbonate (Tums) 500 Mg (200 Mg Elemental) PO 500 mg DAILY [facility] Administration Dextrose 12.5 gm 06/17/25 00:38 Dextrose 50% 25 Gm/50 Ml Syringe IV PUSH PRN PRN Hypoglycemia Protocol Dicyclomine HCl 20 mg 06/17/25 08:28 Dicyclomine Hcl 10 Mg Capsule PO TID PRN Anxiety Glucose 15 gm 06/17/25 00:38 Glucose Oral Gel 15 Gm Of Glucse In 37.5 Gm Tube PO PRN PRN Hypoglycemia Protocol Azithromycin 500 mg/ Sodium 250 mls @ 250 mls/hr 06/17/25 21:00 06/17/25 22:26 Chloride IVPB 06/20/25 21:59 Infused Q24H [facility] Infusion Lactated Ringer's 1,000 mls @ 150 mls/hr 06/17/25 00:40 06/18/25 08:04 Lr - Lactated Ringers Iv IV CONT 150 mls/hr .Q6H40M [facility] Administration Dextrose 1,000 mls @ 100 mls/hr 06/17/25 00:38 Dextrose 5% 1,000 Ml IVPB PRN PRN Hypoglycemia Protocol Potassium Chloride 40 meq/ 520 mls @ 130 mls/hr 06/18/25 10:37 06/18/25 11:49 Sodium Chloride IVPB 06/18/25 14:36 130 mls/hr ONCE ONE Administration Ceftriaxone Sodium 2 gm/ 100 mls @ 200 mls/hr 06/18/25 13:55 Sodium Chloride IVPB Q24H [facility] Levothyroxine Sodium 50 mcg 06/17/25 06:30 06/18/25 06:03 Levothyroxine Sodium 50 Mcg Tablet PO 50 mcg DAILY@0630 [facility] Administration Ondansetron HCl 4 mg 06/17/25 00:38 Ondansetron Inj 4 Mg/2 Ml Vial IV PUSH Q4H PRN Nausea Ondansetron HCl 4 mg 06/17/25 08:28 Ondansetron Hcl Odt 4 Mg Tablet PO Q4H PRN Nausea And Vomiting Rosuvastatin Calcium 5 mg 06/17/25 09:00 06/18/25 08:05 Rosuvastatin 5 Mg Tablet PO 5 mg DAILY [facility] Administration Vitamin D 250 mcg 06/22/25 09:00 Cholecalciferol (Vitamin D3) 125 Mcg (5,000 Units) Tablet PO Q7D [facility] Vitamin E 1,600 unit 06/17/25 09:00 06/18/25 08:05 Vitamin E 400 Unit Capsule PO 1,600 unit DAILY [facility] Administration Radiology Results: ITS Impressions Chest X-Ray 06/16/25 17:28 Impression: Small left lower lobe pneumonia Abdomen/Pelvis CT 06/16/25 20:15 IMPRESSION: No acute abnormality is noted in the abdomen and pelvis. Large right gluteal muscle with increased density suggestive of a intramuscular hematoma. Correlate clinically. All CT scans at this facility are performed using low dose modulation techniques as appropriate to perform exam including the following: automated exposure control; use of iterative reconstruction technique; adjustment of the mA and/or kV according to patient size (this includes techniques or standardized protocols for targeted exams where dose is matched to indication/reason for exam). Labs Labs: Laboratory Results - last 24 hr 06/17/25 06/18/25 06/18/25 06:28 03:57 06:06 WBC 5.8 RBC 3.17 L Hgb 10.4 L Hct 33.8 L MCV 106.6 H MCH 32.8 MCHC 30.8 L RDW 16.6 H Plt Count 60 L MPV 11.2 H % Immature Plt Fraction 4.6 Sodium 135 L Potassium 3.1 L Chloride 111 H Carbon Dioxide 22 Anion Gap 2 L BUN 7 Creatinine 0.78 Estim Creat Clear Calc 42 Estimated GFR > 60 Glucose 67 POC Capillary Glucose 148 H Calcium 7.3 L Magnesium 2.4 H M.pneumoniae IgM Titer <770
[2025-06-18] MEDS: cefTRIAXone 2 GM in SODIUM CHLORIDE 0.9% IV 100 ML 200 ML IVPB (14:02)
[2025-06-18 16:00] VITALS: BP 127/66; PULSE 85; RESP 17; TEMP 36.4; O2SAT 100
[2025-06-18] MEDS: diazePAM (*CRX) 2 MG TABLET PO (17:01)
[2025-06-18 20:00] VITALS: PULSE 85; RESP 17; O2SAT 100
[2025-06-18] MEDS: guaiFENesin 12 HR 600 MG TABCR PO (20:17)
[2025-06-18] MEDS: MIRTAZAPINE 15 MG TABLET PO (20:17)
[2025-06-18] MEDS: AZITHROMYCIN IV 500 MG in SODIUM CHLORIDE 0.9% IV 250 ML IVPB (20:19)
[2025-06-18 20:30] VITALS: BP 147/67; PULSE 83; RESP 16; TEMP 36.6; O2SAT 100
[2025-06-18 22:41] LABS: Potassium 2.6 mmol/L (3.4-5.0)
[2025-06-18] MEDS: POTASSIUM CHLORIDE 20 MEQ ER TABLET 40 MEQ PO (23:31)
[2025-06-19] VITALS (7 sets, daily range): BP systolic 133–148; BP diastolic 59–69; PULSE 76–94; RESP 16–18; TEMP 36.1–36.8; O2SAT 100
[2025-06-19] MEDS: ACETAMINOPHEN 325 MG TABLET 650 MG PO ×3 (03:18→20:34)
[2025-06-19] MEDS: LEVOTHYROXINE SODIUM 50 MCG TABLET PO (06:06)
[2025-06-19 06:44] LABS: Alanine Aminotransferase 26 U/L (6-35); Albumin Level 1.7 g/dL (3.5-5.1); Alkaline Phosphatase 93 U/L (38-126); Anion Gap 0 mmol/L (4-12); Aspartate Amino Transferase 42 U/L (14-36); Bilirubin,Total 0.5 mg/dL (0.2-1.3); Blood Urea Nitrogen 3 mg/dL (7-17); Calcium 7.4 mg/dL (8.4-10.2); Carbon Dioxide 20 mmol/L (22-30); Chloride 115 mmol/L (98-107); Estimated CRCL calculation 45 ml/min; Estimated Glomerular Filt Rate > 60; Glucose 60 mg/dL (65-110); Magnesium 2.3 mg/dL (1.6-2.3); Potassium 3.9 mmol/L (3.4-5.0); Sodium 135 mmol/L (137-145); Total Protein 3.8 g/dL (6.3-8.2)
[2025-06-19 07:57] LABS: Hematocrit 34.7 % (37.0-47.0); Hemoglobin 11.0 g/dL (12.0-15.0); Immature Granulocyte Percent A 0.8 % (0-0.5); Lymphocytes Absolute Auto 0.74 K/mm3 (0.9-3.2); Mean Corpuscular HGB Conc 31.7 g/dl (32-36); Mean Corpuscular Hemoglobin 32.7 pg (26-34); Mean Corpuscular Volume 103.3 fl (80-100); Nucleated Red Blood Cells Absolute Auto 0.000 K/mm3 (0.0-0.012); Nucleated Red Blood Cells Perc 0.0 % (0.0-0.2); Platelet Count Result 170 k/mm3 (150-375); Red Blood Count 3.36 M/mm3 (4.2-5.4); White Blood Count 5.1 K/mm3 (4.5-10.0)
[2025-06-19] MEDS: VITAMIN E 400 UNIT CAPSULE 1600 UNIT PO (08:28)
[2025-06-19] MEDS: ROSUVASTATIN 5 MG TABLET PO (08:28)
[2025-06-19] MEDS: ASCORBIC ACID 500 MG TABLET 1000 MG PO ×3 (08:29→17:31)
[2025-06-19] MEDS: CALCIUM CARBONATE (TUMS) 500 MG (200 MG ELEMENTAL) PO (08:29)
[2025-06-19] MEDS: diazePAM (*CRX) 2 MG TABLET PO ×2 (08:29→17:31)
[2025-06-19] MEDS: guaiFENesin 12 HR 600 MG TABCR PO ×2 (08:29→20:32)
--- NOTE | 2025-06-19 11:23 | PM.IMPN ---
Progress Note: A&P Assessment and Plan (1) UTI (urinary tract infection): Qualifiers: Hematuria presence: without hematuria Urinary tract infection type: acute cystitis Qualified Code(s): N30.00 - Acute cystitis without hematuria Code(s): N39.0 - Urinary tract infection, site not specified Status: Acute (2) Sepsis: Qualifiers: Sepsis acute organ dysfunction status: unspecified Sepsis type: sepsis due to unspecified organism Qualified Code(s): A41.9 - Sepsis, unspecified organism Code(s): A41.9 - Sepsis, unspecified organism Status: Acute (3) Weakness: Code(s): R53.1 - Weakness Status: Acute (4) Pneumonia: Qualifiers: Laterality: left Lung location: lower lobe of lung Pneumonia type: due to unspecified organism Qualified Code(s): J18.9 - Pneumonia, unspecified organism Code(s): J18.9 - Pneumonia, unspecified organism Status: Acute (5) Hematoma of right buttock: Code(s): S30.0XXA - Contusion of lower back and pelvis, initial encounter Status: Acute Plan This is a 75-year-old female who presented with cough fever chills lower abdominal pain ongoing for a couple weeks. Also had a fall on 06/05/2025 and had hematoma on right buttock area. Evaluation at that time with CT head and cervical spine x-ray and rib and hip was negative for any bony injuries. General surgery consulted for a right buttock hematoma code submitted managed On ED evaluation she was mildly febrile 100.8 sinus tachycardia EKG with sinus rhythm QTC 315. WBC 9.3 hemoglobin 11.8 platelet 128 neutrophilia INR 1 sodium 134 potassium 2 serum creatinine 0.9 glucose 121 lactic acid 2.4 total bilirubin 1.4 AST 54 urinalysis positive for greater than 100 WBC bacteria leukocyte esterase and nitrate. Blood culture x2 was obtained which came back positive for Gram-negative padmaja. Patient had a chest x-ray which demonstrated left lower lobe pneumonia. Patient has been started on ceftriaxone and azithromycin. Quad viral screen was negative. Bacteremia with switch ceftriaxone to 2 g daily UTI Urine culture finalized and E coli Left lower lobe pneumonia Thrombocytopenia likely due to underlying sepsis and bacteremia continue to monitor. Thrombocytopenia today is r Right buttock intramuscular hematoma Severe hypokalemia Mild lactic acidosis Hypothyroidism on levothyroxine Full code. DVT prophylaxis SCDs. Subjective Date/time seen: 06/19/25 11:23 Interval history: No overnight events. Feels okay. Week. Mild cough. Reviewed. Review of Systems Review of Systems: All systems reviewed & are unremarkable except as noted in HPI and below (Subjective) Exam Narrative: Patient is comfortable, NAD HEENT: eyes are clear and none icteric LUNGS:CTA HEART: RR S1S2 ABD: BS+, Soft and nontender Lower extremities: no edema right buttock hematoma noted SKIN: nonjaundiced Neuro: grossly intact. Objective Data Vital Signs Vital Signs: Vital Signs - 24 hr 06/18/25 11:53 06/18/25 16:00 06/18/25 20:00 Temperature 97.5 F L Pulse Rate 85 85 Respiratory Rate 17 17 Blood Pressure 127/66 Pulse Oximetry 100 100 Oxygen Delivery Room Air Room Air 06/18/25 20:30 06/19/25 00:00 06/19/25 04:00 Temperature 97.8 F Pulse Rate 83 76 86 Respiratory Rate 16 Blood Pressure 147/67 H Pulse Oximetry 100 Oxygen Delivery 06/19/25 05:09 06/19/25 08:32 Temperature 98.3 F Pulse Rate 86 92 Respiratory Rate 16 Blood Pressure 139/69 Pulse Oximetry 100 100 Oxygen Delivery Room Air Intake/Output Intake/Output: Intake & Output 06/16/25 06/17/25 06/18/25 06/19/25 23:59 23:59 23:59 23:59 Intake Total 1300 5927.5 3102 1500 Output Total 750 1500 Balance 1300 5177.5 1602 1500 Meds/Results Medications: Active Medications Generic Name Dose Route Start Last Admin Trade Name Freq PRN Reason Stop Dose Admin Acetaminophen 650 mg 06/17/25 00:38 06/19/25 03:18 Acetaminophen 325 Mg Tablet PO 650 mg Q4H PRN Administration Mild Pain (1-3) or Fever Ascorbic Acid 1,000 mg 06/17/25 09:00 06/19/25 08:29 Ascorbic Acid 500 Mg Tablet PO 07/17/25 08:59 1,000 mg TID [place] Administration Calcium Carbonate 500 mg 06/17/25 09:00 06/19/25 08:29 Calcium Carbonate (Tums) 500 Mg (200 Mg Elemental) PO 500 mg DAILY [facility] Administration Dextrose 12.5 gm 06/17/25 00:38 Dextrose 50% 25 Gm/50 Ml Syringe IV PUSH PRN PRN Hypoglycemia Protocol Diazepam 2 mg 06/18/25 17:00 06/19/25 08:29 Diazepam (*Crx) 2 Mg Tablet PO 2 mg BID [facility] Administration Dicyclomine HCl 20 mg 06/17/25 08:28 Dicyclomine Hcl 10 Mg Capsule PO On Hold: 06/18/25 23:14 TID PRN Anxiety Glucose 15 gm 06/17/25 00:38 Glucose Oral Gel 15 Gm Of Glucse In 37.5 Gm Tube PO PRN PRN Hypoglycemia Protocol Guaifenesin 600 mg 06/18/25 21:00 06/19/25 08:29 Guaifenesin 12 Hr 600 Mg Tabcr PO 600 mg Q12HR [facility] Administration Azithromycin 500 mg/ Sodium 250 mls @ 250 mls/hr 06/17/25 21:00 06/18/25 21:20 Chloride IVPB 06/20/25 21:59 Infused Q24H [facility] Infusion Dextrose 1,000 mls @ 100 mls/hr 06/17/25 00:38 Dextrose 5% 1,000 Ml IVPB PRN PRN Hypoglycemia Protocol Ceftriaxone Sodium 2 gm/ 100 mls @ 200 mls/hr 06/18/25 14:00 06/18/25 14:32 Sodium Chloride IVPB Infused Q24H [facility] Infusion Levothyroxine Sodium 50 mcg 06/17/25 06:30 06/19/25 06:06 Levothyroxine Sodium 50 Mcg Tablet PO 50 mcg DAILY@0630 [facility] Administration Mirtazapine 15 mg 06/18/25 21:00 06/18/25 20:17 Mirtazapine 15 Mg Tablet PO 15 mg HS [facility] Administration Ondansetron HCl 4 mg 06/17/25 00:38 Ondansetron Inj 4 Mg/2 Ml Vial IV PUSH Q4H PRN Nausea Ondansetron HCl 4 mg 06/17/25 08:28 Ondansetron Hcl Odt 4 Mg Tablet PO Q4H PRN Nausea And Vomiting Rosuvastatin Calcium 5 mg 06/17/25 09:00 06/19/25 08:28 Rosuvastatin 5 Mg Tablet PO 5 mg DAILY [facility] Administration Vitamin D 250 mcg 06/22/25 09:00 Cholecalciferol (Vitamin D3) 125 Mcg (5,000 Units) Tablet PO Q7D [facility] Vitamin E 1,600 unit 06/17/25 09:00 06/19/25 08:28 Vitamin E 400 Unit Capsule PO 1,600 unit DAILY [facility] Administration Radiology Results: ITS Impressions Chest X-Ray 06/16/25 17:28 Impression: Small left lower lobe pneumonia Abdomen/Pelvis CT 06/16/25 20:15 IMPRESSION: No acute abnormality is noted in the abdomen and pelvis. Large right gluteal muscle with increased density suggestive of a intramuscular hematoma. Correlate clinically. All CT scans at this facility are performed using low dose modulation techniques as appropriate to perform exam including the following: automated exposure control; use of iterative reconstruction technique; adjustment of the mA and/or kV according to patient size (this includes techniques or standardized protocols for targeted exams where dose is matched to indication/reason for exam). Labs Labs: Laboratory Results - last 24 hr 06/17/25 06/17/25 06/18/25 06:28 06:49 22:24 WBC RBC Hgb Hct MCV MCH MCHC RDW Plt Count MPV Immature Gran % (Auto) Neut % (Auto) Lymph % (Auto) [place] % (Auto) Eos % (Auto) Baso % (Auto) Lymph # (Auto) [place] # (Auto) Eos # (Auto) Baso # (Auto) Abs Immat Gran (auto) Absolute Neuts (auto) Absolute Nucleated RBC Nucleated RBC % Sodium Potassium 2.6 L* Chloride Carbon Dioxide Anion Gap BUN Creatinine Estim Creat Clear Calc Estimated GFR Glucose Calcium Magnesium Total Bilirubin AST ALT Alkaline Phosphatase Total Protein Albumin Chlamy pneumoniae PCR Not detected Adenovirus (PCR) Not detected B. pertussis DNA (PCR) Not detected B.parapertussis DNA PCR Not detected Coronavirus OC43 (PCR) Not detected Coronavirus HKU1 (PCR) Not detected Coronavirus 229E (PCR) Not detected Coronavirus NL63 (PCR) Not detected Human Metapneumovir PCR Not detected Influenza A (H1) PCR Not detected Influ A (H1/09) PCR Not detected Influenza A (H3) PCR Not detected Influenza Type A (PCR) Not detected Influenza Type B (PCR) Not detected M.pneumoniae IgM Titer <770 M. pneumoniae (PCR) Not detected Parainfluenza 1 (PCR) Not detected Parainfluenza 2 (PCR) Not detected Parainfluenza 3 (PCR) Not detected Parainfluenza 4 (PCR) Not detected RSV (PCR) Not detected Entero/Rhino (PCR) Not detected SARS-CoV-2 (PCR) Not detected 06/19/25 06/19/25 05:45 07:41 WBC 5.1 RBC 3.36 L Hgb 11.0 L Hct 34.7 L MCV 103.3 H MCH 32.7 MCHC 31.7 L RDW 16.2 H Plt Count 170 D MPV 10.0 Immature Gran % (Auto) 0.8 H Neut % (Auto) 71.2 Lymph % (Auto) 14.6 L [place] % (Auto) 11.2 H Eos % (Auto) 1.8 Baso % (Auto) 0.4 Lymph # (Auto) 0.74 L [place] # (Auto) 0.6 Eos # (Auto) 0.1 Baso # (Auto) 0.0 Abs Immat Gran (auto) 0.04 H Absolute Neuts (auto) 3.6 Absolute Nucleated RBC 0.000 Nucleated RBC % 0.0 Sodium 135 L Potassium 3.9 Chloride 115 H Carbon Dioxide 20 L Anion Gap 0 L BUN 3 L Creatinine 0.71 Estim Creat Clear Calc 45 Estimated GFR > 60 Glucose 60 L Calcium 7.4 L Magnesium 2.3 Total Bilirubin 0.5 AST 42 H ALT 26 Alkaline Phosphatase 93 Total Protein 3.8 L Albumin 1.7 L Chlamy pneumoniae PCR Adenovirus (PCR) B. pertussis DNA (PCR) B.parapertussis DNA PCR Coronavirus OC43 (PCR) Coronavirus HKU1 (PCR) Coronavirus 229E (PCR) Coronavirus NL63 (PCR) Human Metapneumovir PCR Influenza A (H1) PCR Influ A (H1/09) PCR Influenza A (H3) PCR Influenza Type A (PCR) Influenza Type B (PCR) M.pneumoniae IgM Titer M. pneumoniae (PCR) Parainfluenza 1 (PCR) Parainfluenza 2 (PCR) Parainfluenza 3 (PCR) Parainfluenza 4 (PCR) RSV (PCR) Entero/Rhino (PCR) SARS-CoV-2 (PCR)
[2025-06-19] MEDS: cefTRIAXone 2 GM in SODIUM CHLORIDE 0.9% IV 100 ML 200 ML IVPB (13:53)
[2025-06-19] MEDS: AZITHROMYCIN IV 500 MG in SODIUM CHLORIDE 0.9% IV 250 ML IVPB (20:29)
[2025-06-19] MEDS: MIRTAZAPINE 15 MG TABLET PO (20:42)
[2025-06-20] MEDS: traMADol HCL (*CRX) 25 MG TABLET PO (04:52)
[2025-06-20 06:00] VITALS: BP 145/65; PULSE 84; RESP 18; TEMP 36.6; O2SAT 100
[2025-06-20] MEDS: LEVOTHYROXINE SODIUM 50 MCG TABLET PO ×2 (06:22)
[2025-06-20 06:44] LABS: Hematocrit 35.7 % (37.0-47.0); Hemoglobin 11.2 g/dL (12.0-15.0); Immature Granulocyte Percent A 1.4 % (0-0.5); Lymphocytes Absolute Auto 0.79 K/mm3 (0.9-3.2); Mean Corpuscular HGB Conc 31.4 g/dl (32-36); Mean Corpuscular Hemoglobin 32.6 pg (26-34); Mean Corpuscular Volume 103.8 fl (80-100); Nucleated Red Blood Cells Absolute Auto 0.000 K/mm3 (0.0-0.012); Nucleated Red Blood Cells Perc 0.0 % (0.0-0.2); Platelet Count Result 200 k/mm3 (150-375); Red Blood Count 3.44 M/mm3 (4.2-5.4); White Blood Count 5.9 K/mm3 (4.5-10.0)
[2025-06-20 06:58] LABS: Alanine Aminotransferase 28 U/L (6-35); Albumin Level 2.1 g/dL (3.5-5.1); Alkaline Phosphatase 107 U/L (38-126); Anion Gap 2 mmol/L (4-12); Aspartate Amino Transferase 40 U/L (14-36); Bilirubin,Total 0.6 mg/dL (0.2-1.3); Blood Urea Nitrogen 3 mg/dL (7-17); Calcium 7.8 mg/dL (8.4-10.2); Carbon Dioxide 26 mmol/L (22-30); Chloride 110 mmol/L (98-107); Estimated CRCL calculation 42 ml/min; Estimated Glomerular Filt Rate > 60; Glucose 61 mg/dL (65-110); Magnesium 2.4 mg/dL (1.6-2.3); Potassium 3.4 mmol/L (3.4-5.0); Sodium 138 mmol/L (137-145); Total Protein 4.6 g/dL (6.3-8.2)
[2025-06-20] MEDS: guaiFENesin 12 HR 600 MG TABCR PO ×2 (09:12→20:51)
[2025-06-20] MEDS: ASCORBIC ACID 500 MG TABLET 1000 MG PO ×3 (09:12→17:41)
[2025-06-20] MEDS: ROSUVASTATIN 5 MG TABLET PO (09:13)
[2025-06-20] MEDS: CALCIUM CARBONATE (TUMS) 500 MG (200 MG ELEMENTAL) PO (09:13)
[2025-06-20] MEDS: VITAMIN E 400 UNIT CAPSULE 1600 UNIT PO (09:13)
[2025-06-20] MEDS: diazePAM (*CRX) 2 MG TABLET PO ×2 (09:13→17:41)
[2025-06-20] MEDS: POTASSIUM CHLORIDE 20 MEQ ER TABLET 40 MEQ PO (09:30)
--- NOTE | 2025-06-20 13:12 | P.PNIM_ITS ---
Progress Note: A&P Assessment and Plan (1) UTI (urinary tract infection): Qualifiers: Hematuria presence: without hematuria Urinary tract infection type: acute cystitis Qualified Code(s): N30.00 - Acute cystitis without hematuria Code(s): N39.0 - Urinary tract infection, site not specified Status: Acute (2) Sepsis: Qualifiers: Sepsis acute organ dysfunction status: unspecified Sepsis type: sepsis due to unspecified organism Qualified Code(s): A41.9 - Sepsis, unspecified organism Code(s): A41.9 - Sepsis, unspecified organism Status: Acute (3) Weakness: Code(s): R53.1 - Weakness Status: Acute (4) Pneumonia: Qualifiers: Laterality: left Lung location: lower lobe of lung Pneumonia type: due to unspecified organism Qualified Code(s): J18.9 - Pneumonia, unspecified organism Code(s): J18.9 - Pneumonia, unspecified organism Status: Acute (5) Hematoma of right buttock: Code(s): S30.0XXA - Contusion of lower back and pelvis, initial encounter Status: Acute Plan This is a 75-year-old female who presented with cough fever chills lower abdom inal pain ongoing for a couple weeks. Also had a fall on 06/05/2025 and had hematoma on right buttock area. Evaluation at that time with CT head and cervical spine x-ray and rib and hip was negative for any bony injuries. General surgery consulted for a right buttock hematoma code submitted managed On ED evaluation she was mildly febrile 100.8 sinus tachycardia EKG with sinus rhythm QTC 315. WBC 9.3 hemoglobin 11.8 platelet 128 neutrophilia INR 1 sodium 134 potassium 2 serum creatinine 0.9 glucose 121 lactic acid 2.4 total bilirubin 1.4 AST 54 urinalysis positive for greater than 100 WBC bacteria leukocyte esterase and nitrate. Blood culture x2 was obtained which came back positive for Gram-negative padmaja. Patient had a chest x-ray which demonstrated left lower lobe pneumonia. Patient has been started on ceftriaxone and azithromycin. Quad viral screen was negative. Bacteremia with switch ceftriaxone to 2 g daily. Identified as E coli pansensitive stemming from UTI UTI Urine culture finalized and E coli pansensitive Left lower lobe pneumonia Thrombocytopenia likely due to underlying sepsis and bacteremia continue to monitor. Thrombocytopenia today is resolved Right buttock intramuscular hematoma Severe hypokalemia Mild lactic acidosis Hypothyroidism on levothyroxine Full code. DVT prophylaxis SCDs. Subjective Date/time seen: 06/20/25 13:12 Interval history: No overnight events. Generalized weakness persist. Still have some cough. R emains afebrile. Culture reviewed Review of Systems Review of Systems: All systems reviewed & are unremarkable except as noted in HPI and below (Subjective) Exam Narrative: Patient is comfortable, NAD HEENT: eyes are clear and none icteric LUNGS:CTA HEART: RR S1S2 ABD: BS+, Soft and nontender Lower extremities: no edema right buttock hematoma noted SKIN: nonjaundiced Neuro: grossly intact. Objective Data Vital Signs Vital Signs: Vital Signs - 24 hr 06/19/25 14:00 06/19/25 20:00 06/19/25 21:50 Temperature 97.9 F 97.0 F L Pulse Rate 88 94 Respiratory Rate 18 18 Blood Pressure 133/59 L 148/69 H Pulse Oximetry 100 100 Oxygen Delivery Room Air 06/20/25 06:00 06/20/25 09:13 Temperature 97.8 F Pulse Rate 84 Respiratory Rate 18 Blood Pressure 145/65 H Pulse Oximetry 100 Oxygen Delivery Room Air Intake/Output Intake/Output: Intake & Output 06/17/25 06/18/25 06/19/25 06/20/25 23:59 23:59 23:59 23:59 Intake Total 5927.5 3102 2394 1288 Output Total 750 1500 Balance 5177.5 1602 2394 1288 Meds/Results Medications: Active Medications Generic Name Dose Route Start Last Admin Trade Name Freq PRN Reason Stop Dose Admin Acetaminophen 650 mg 06/17/25 00:38 06/19/25 20:34 Acetaminophen 325 Mg Tablet PO 650 mg Q4H PRN Administration Mild Pain (1-3) or Fever Ascorbic Acid 1,000 mg 06/17/25 09:00 06/20/25 09:12 Ascorbic Acid 500 Mg Tablet PO 07/17/25 08:59 1,000 mg TID [facility] Administration Calcium Carbonate 500 mg 06/17/25 09:00 06/20/25 09:13 Calcium Carbonate (Tums) 500 Mg (200 Mg Elemental) PO 500 mg DAILY [facility] Administration Dextrose 12.5 gm 06/17/25 00:38 Dextrose 50% 25 Gm/50 Ml Syringe IV PUSH PRN PRN Hypoglycemia Protocol Diazepam 2 mg 06/18/25 17:00 06/20/25 09:13 Diazepam (*Crx) 2 Mg Tablet PO 2 mg BID [facility] Administration Dicyclomine HCl 20 mg 06/17/25 08:28 Dicyclomine Hcl 10 Mg Capsule PO On Hold: 06/18/25 23:14 TID PRN Anxiety Glucose 15 gm 06/17/25 00:38 Glucose Oral Gel 15 Gm Of Glucse In 37.5 Gm Tube PO PRN PRN Hypoglycemia Protocol Guaifenesin 600 mg 06/18/25 21:00 06/20/25 09:12 Guaifenesin 12 Hr 600 Mg Tabcr PO 600 mg Q12HR [facility] Administration Azithromycin 500 mg/ Sodium 250 mls @ 250 mls/hr 06/17/25 21:00 06/19/25 20:29 Chloride IVPB 06/20/25 21:59 250 mls/hr Q24H [facility] Administration Dextrose 1,000 mls @ 100 mls/hr 06/17/25 00:38 Dextrose 5% 1,000 Ml IVPB PRN PRN Hypoglycemia Protocol Ceftriaxone Sodium 2 gm/ 100 mls @ 200 mls/hr 06/18/25 14:00 06/19/25 14:23 Sodium Chloride IVPB Infused Q24H [facility] Infusion Levothyroxine Sodium 50 mcg 06/17/25 06:30 06/20/25 06:22 Levothyroxine Sodium 50 Mcg Tablet PO 50 mcg DAILY@0630 [facility] Administration Mirtazapine 15 mg 06/18/25 21:00 06/19/25 20:42 Mirtazapine 15 Mg Tablet PO 15 mg HS [facility] Administration Ondansetron HCl 4 mg 06/17/25 00:38 Ondansetron Inj 4 Mg/2 Ml Vial IV PUSH Q4H PRN Nausea Ondansetron HCl 4 mg 06/17/25 08:28 Ondansetron Hcl Odt 4 Mg Tablet PO Q4H PRN Nausea And Vomiting Rosuvastatin Calcium 5 mg 06/17/25 09:00 06/20/25 09:13 Rosuvastatin 5 Mg Tablet PO 5 mg DAILY [facility] Administration Vitamin D 250 mcg 06/22/25 09:00 Cholecalciferol (Vitamin D3) 125 Mcg (5,000 Units) Tablet PO Q7D [facility] Vitamin E 1,600 unit 06/17/25 09:00 06/20/25 09:13 Vitamin E 400 Unit Capsule PO 1,600 unit DAILY [facility] Administration Radiology Results: ITS Impressions Chest X-Ray 06/16/25 17:28 Impression: Small left lower lobe pneumonia Abdomen/Pelvis CT 06/16/25 20:15 IMPRESSION: No acute abnormality is noted in the abdomen and pelvis. Large right gluteal muscle with increased density suggestive of a intramuscular hematoma. Correlate clinically. All CT scans at this facility are performed using low dose modulation techniques as appropriate to perform exam including the following: automated exposure control; use of iterative reconstruction technique; adjustment of the mA and/or kV according to patient size (this includes techniques or standardized protocols for targeted exams where dose is matched to indication/reason for exam). Labs Labs: Laboratory Results - last 24 hr 06/20/25 06/20/25 05:58 05:59 WBC 5.9 RBC 3.44 L Hgb 11.2 L Hct 35.7 L MCV 103.8 H MCH 32.6 MCHC 31.4 L RDW 15.9 H Plt Count 200 MPV 10.1 Immature Gran % (Auto) 1.4 H Neut % (Auto) 72.5 Lymph % (Auto) 13.5 L [place] % (Auto) 10.1 H Eos % (Auto) 2.0 Baso % (Auto) 0.5 Lymph # (Auto) 0.79 L [place] # (Auto) 0.6 Eos # (Auto) 0.1 Baso # (Auto) 0.0 Abs Immat Gran (auto) 0.08 H Absolute Neuts (auto) 4.3 Absolute Nucleated RBC 0.000 Nucleated RBC % 0.0 Sodium 138 Potassium 3.4 Chloride 110 H Carbon Dioxide 26 Anion Gap 2 L BUN 3 L Creatinine 0.77 Estim Creat Clear Calc 42 Estimated GFR > 60 Glucose 61 L Calcium 7.8 L Magnesium 2.4 H Total Bilirubin 0.6 AST 40 H ALT 28 Alkaline Phosphatase 107 Total Protein 4.6 L Albumin 2.1 L
[2025-06-20] MEDS: ACETAMINOPHEN 325 MG TABLET 650 MG PO ×2 (13:31→20:50)
[2025-06-20] MEDS: cefTRIAXone 2 GM in SODIUM CHLORIDE 0.9% IV 100 ML 200 ML IVPB (13:32)
[2025-06-20 14:00] VITALS: BP 147/71; PULSE 98; RESP 19; TEMP 36.7; O2SAT 100
[2025-06-20] MEDS: MIRTAZAPINE 15 MG TABLET PO (20:51)
[2025-06-20] MEDS: AZITHROMYCIN IV 500 MG in SODIUM CHLORIDE 0.9% IV 250 ML IVPB (20:52)
[2025-06-20 22:00] VITALS: BP 139/70; PULSE 84; RESP 18; TEMP 37.1; O2SAT 100
[2025-06-21 05:59] LABS: Hematocrit 40.2 % (37.0-47.0); Hemoglobin 12.7 g/dL (12.0-15.0); Mean Corpuscular HGB Conc 31.6 g/dl (32-36); Mean Corpuscular Hemoglobin 33.2 pg (26-34); Mean Corpuscular Volume 105.2 fl (80-100); Platelet Count Result 260 k/mm3 (150-375); Red Blood Count 3.82 M/mm3 (4.2-5.4); White Blood Count 5.4 K/mm3 (4.5-10.0)
[2025-06-21 06:00] VITALS: BP 140/62; PULSE 78; RESP 18; TEMP 36.2; O2SAT 100
[2025-06-21 06:31] LABS: Anion Gap 1 mmol/L (4-12); Blood Urea Nitrogen 3 mg/dL (7-17); Calcium 8.0 mg/dL (8.4-10.2); Carbon Dioxide 26 mmol/L (22-30); Chloride 110 mmol/L (98-107); Estimated CRCL calculation 44 ml/min; Estimated Glomerular Filt Rate > 60; Glucose 69 mg/dL (65-110); Magnesium 2.4 mg/dL (1.6-2.3); Potassium 3.4 mmol/L (3.4-5.0); Sodium 137 mmol/L (137-145)
[2025-06-21] MEDS: ACETAMINOPHEN 325 MG TABLET 650 MG PO (07:35)
[2025-06-21 08:00] VITALS: O2SAT 100
[2025-06-21] MEDS: CALCIUM CARBONATE (TUMS) 500 MG (200 MG ELEMENTAL) PO (08:26)
[2025-06-21] MEDS: ASCORBIC ACID 500 MG TABLET 1000 MG PO ×2 (08:26→13:22)
[2025-06-21] MEDS: diazePAM (*CRX) 2 MG TABLET PO (08:27)
[2025-06-21] MEDS: guaiFENesin 12 HR 600 MG TABCR PO (08:27)
[2025-06-21] MEDS: ROSUVASTATIN 5 MG TABLET PO (08:27)
[2025-06-21] MEDS: VITAMIN E 400 UNIT CAPSULE 1600 UNIT PO (08:27)
[2025-06-21] MEDS: cefTRIAXone 2 GM in SODIUM CHLORIDE 0.9% IV 100 ML IVPB (13:22)
[2025-06-21 13:45] VITALS: BP 144/68; PULSE 76; RESP 16; TEMP 36.8; O2SAT 98
--- NOTE | 2025-06-21 14:45 | P.DS_ITS ---
DS: Admitting Diagnosis Discharge Date 06/21/2025 Admitting Diagnosis Weakness DS: Discharge Diagnosis Discharge Diagnosis (1) UTI (urinary tract infection): Qualifiers: Hematuria presence: without hematuria Urinary tract infection type: acute cystitis Qualified Code(s): N30.00 - Acute cystitis without hematuria Code(s): N39.0 - Urinary tract infection, site not specified Status: Acute (2) Sepsis: Qualifiers: Sepsis acute organ dysfunction status: unspecified Sepsis type: sepsis due to unspecified organism Qualified Code(s): A41.9 - Sepsis, unspecified organism Code(s): A41.9 - Sepsis, unspecified organism Status: Acute (3) Weakness: Code(s): R53.1 - Weakness Status: Acute (4) Pneumonia: Qualifiers: Laterality: left Lung location: lower lobe of lung Pneumonia type: due to unspecified organism Qualified Code(s): J18.9 - Pneumonia, unspecified organism Code(s): J18.9 - Pneumonia, unspecified organism Status: Acute (5) Hematoma of right buttock: Code(s): S30.0XXA - Contusion of lower back and pelvis, initial encounter Status: Acute DS: Summary Hospital Course Hospital Course: This is a 75-year-old female who presented with cough fever chills lower abdominal pain ongoing for a couple weeks. Also had a fall on 06/05/2025 and had hematoma on right buttock area. Evaluation at that time with CT head and cervical spine x-ray and rib and hip was negative for any bony injuries. General surgery consulted for a right buttock hematoma code submitted managed On ED evaluation she was mildly febrile 100.8 sinus tachycardia EKG with sinus rhythm QTC 315. WBC 9.3 hemoglobin 11.8 platelet 128 neutrophilia INR 1 sodium 134 potassium 2 serum creatinine 0.9 glucose 121 lactic acid 2.4 total bilirubin 1.4 AST 54 urinalysis positive for greater than 100 WBC bacteria leukocyte esterase and nitrate. Blood culture x2 was obtained which came back positive for Gram-negative padmaja. Patient had a chest x-ray which demonstrated left lower lobe pneumonia. Patient has been started on ceftriaxone and azithromycin. Quad viral screen was negative. Bacteremia with switch ceftriaxone to 2 g daily. Identified as E coli pansensitive stemming from UTI. Switched to oral antibiotics UTI Urine culture finalized and E coli pansensitive. Switched to oral antibiotics Left lower lobe pneumonia improving Thrombocytopenia likely due to underlying sepsis and bacteremia continue to monitor. Thrombocytopenia today is resolved Right buttock intramuscular hematoma Severe hypokalemia Mild lactic acidosis Hypothyroidism on levothyroxine Full code. DVT prophylaxis SCDs. Time Spent with Patient Time attestation: Total time spent providing and/or coordinating discharge services: 40 minutes Exam Narrative: Patient is comfortable, NAD HEENT: eyes are clear and none icteric LUNGS:CTA HEART: RR S1S2 ABD: BS+, Soft and nontender Lower extremities: no edema right buttock hematoma noted SKIN: nonjaundiced Neuro: grossly intact. DS: Data Data Completed and Pending Labs on day of discharge: Labs from last 24 hours 06/21/25 05:54 WBC 5.4 RBC 3.82 L Hgb 12.7 Hct 40.2 MCV 105.2 H MCH 33.2 MCHC 31.6 L RDW 15.9 H Plt Count 260 MPV 9.1 Sodium 137 Potassium 3.4 Chloride 110 H Carbon Dioxide 26 Anion Gap 1 L BUN 3 L Creatinine 0.73 Estim Creat Clear Calc 44 Estimated GFR > 60 Glucose 69 Calcium 8.0 L Magnesium 2.4 H Imaging Radiologist's impression: ITS Impressions Chest X-Ray 06/16/25 17:28 Impression: Small left lower lobe pneumonia Abdomen/Pelvis CT 06/16/25 20:15 IMPRESSION: No acute abnormality is noted in the abdomen and pelvis. Large right gluteal muscle with increased density suggestive of a intramuscular hematoma. Correlate clinically. All CT scans at this facility are performed using low dose modulation techniques as appropriate to perform exam including the following: automated exposure control; use of iterative reconstruction technique; adjustment of the mA and/or kV according to patient size (this includes techniques or standardized protocols for targeted exams where dose is matched to indication/reason for exam). Discharge Plan Discharge Attending physician on discharge: Benny Gaines Consulting providers: Azael Cummins Discharging Clinician: Benny Gaines Anticipated Discharge Date/Time: 06/21/25 14:46 Patient Disposition: Home Activity: as tolerated Diet: regular Discharge Instructions: follow up with psychiatrist as op basis for management of anxiety Patient Instructions: Antibiotic Form, Depression Management for Older Adults (DC) Patient Language: Mongolian Stand Alone Forms: General Discharge Information Follow-up/Referrals: Vicki,Johnny Man MD [Primary Care Provider, Unknown] - 1 Week Discharge Medications: New diazepam 2 mg Tablet 2 mg PO BID PRN (Reason: anxiety) Qty: 60 0RF mirtazapine [Remeron] 15 mg Tablet 15 mg PO HS Qty: 30 0RF guaifenesin [Mucus Relief ER] 600 mg Tablet Extended Release 12hr 600 mg PO Q12HR Qty: 30 0RF Continued cholecalciferol (vitamin D3) 125 mcg (5,000 unit) capsule 10,000 unit PO WEEKLY calcium carbonate 500 mg calcium (1,250 mg) tablet,chewable 500 mg PO DAILY dicyclomine 20 mg tablet 20 mg PO TID PRN (Reason: Anxiety) Qty: 30 0RF ondansetron 4 mg tablet,disintegrating 4 mg PO Q4H PRN (Reason: nausea and vomiting) Qty: 10 0RF vitamin E 268 mg (400 unit) capsule 1,072 mg PO DAILY C Complex 1,000 mg tablet extended release 1,000 mg PO TID potassium 99 mg tablet 198 mg PO TID PRN (Reason: MUSCLE SPASMS) levothyroxine 50 mcg tablet 50 mcg PO DAILY Qty: 90 1RF rosuvastatin 5 mg tablet 5 mg PO DAILY Qty: 90 0RF Rx Instructions: LAST REFILL TUNIL SEEN Date of admission: 06/18/25 11:29 Primary Care Provider: Vicki,Johnny Man Admitting Provider: Steff Antonio Attending physician on admission: Steff Antonio Condition: Improved
== END 2025-06-21 16:10 | disposition home or self-care (01) | DRG 871 ==
LOC: ANHED 06-17 00:25 → ANHIMU 06-17 01:32 → ANH3MEDSUR 06-18 10:41
PROVIDERS: Family Medicine; Physician Assistant; Admitting Provider General Practice; Emergency Provider Physician Assistant; PCP Internal Medicine; Visit Provider Internal Medicine
DX: A41.9 Sepsis, unspecified organism (principal); J18.9 Pneumonia, unspecified organism; N39.0 Urinary tract infection, site not specified; E87.20 Acidosis, unspecified; E46 Unspecified protein-calorie malnutrition; D69.59 Other secondary thrombocytopenia; E03.9 Hypothyroidism, unspecified; M54.89 Other dorsalgia; E87.6 Hypokalemia; D64.9 Anemia, unspecified; K58.9 Irritable bowel syndrome, unspecified; F41.1 Generalized anxiety disorder; M81.0 Age-related osteoporosis without current pathological fracture; M05.79 Rheumatoid arthritis with rheumatoid factor of multiple sites without organ or systems involvement; W01.0XXD Fall on same level from slipping, tripping and stumbling without subsequent striking against object, subsequent encounter; B96.20 Unspecified Escherichia coli [E. coli] as the cause of diseases classified elsewhere; Z20.822 Contact with and (suspected) exposure to COVID-19; Z91.81 History of falling; S30.0XXD Contusion of lower back and pelvis, subsequent encounter; S01.81XD Laceration without foreign body of other part of head, subsequent encounter; Z87.19 Personal history of other diseases of the digestive system; Z90.49 Acquired absence of other specified parts of digestive tract; Z87.891 Personal history of nicotine dependence; Z68.28 Body mass index [BMI] 28.0-28.9, adult
CPT/HCPCS: 36415; 71046; 74177; 80048; 80053; 81001; 82550; 82948; 83605; 83690; 83735; 84132; 85025; 85027; 85055; 85610; 85730; 86738; 87040; 87086; 87186; 87449; 87637; 87899; 93005; 96361; 96365; 96366; 96367; 96368; 96375; 97110; 97161; 97165; 97530; 99285; A9270; G0378; J0456; J0696; J1171; J2405; J3480; J7030; J7040; J7050; J7120; Q9967